=== PATIENT | female | born 1950 | race Two or more races ===

== ENCOUNTER → 2018-08-19 | Outpatient (CLI) | payer MEDICARE | END | disposition home or self-care (01) | LOC: LAB SHORT 18:18 → LAB 18:18 | DX: R19.7 Diarrhea, unspecified (principal) | CPT/HCPCS: 87493 ==

== ENCOUNTER → 2018-11-01 | Outpatient (CLI) | payer MEDICARE ==
[2018-11-05 09:08] LABS: HEPATITIS C QUANTITATION HCV Not Detected IU/mL (.)
== END | disposition home or self-care (01) ==
LOC: LAB SHORT 12:00 → LAB 12:00
PROVIDERS: Internal Medicine Nephrology
DX: K74.60 Unspecified cirrhosis of liver (principal)
CPT/HCPCS: 87522

== ENCOUNTER 2019-02-21 11:19 | Observation (INO) | payer MEDICARE ==
[~2019-02-21] VITALS: Ht 152.4 cm; Wt 88.0 kg
[2019-02-21 12:12] LABS: BASOPHILS ABSOLUTE AUTO 0.02 K/mm3 (0.00-0.23); BASOPHILS PERCENT AUTO 0 % (0-2); EOSINOPHILS ABSOLUTE AUTO 0.27 K/mm3 (0.00-0.68); EOSINOPHILS PERCENT AUTO 4 % (0-6); IMMATURE GRAN ABSOLUTE AUTO 0.04 K/mm3 (0.00-0.10); IMMATURE GRAN PERCENT AUTO 1 % (0-1); LYMPHOCYTES ABSOLUTE AUTO 0.94 K/mm3 (0.84-5.20); LYMPHOCYTES PERCENT AUTO 14 % (21-46); MONOCYTES ABSOLUTE AUTO 0.38 K/mm3 (0.16-1.47); MONOCYTES PERCENT AUTO 6 % (4-13); Mean Corpuscular HGB 29.7 pg (26.0-34.0); Mean Corpuscular HGB Conc 32.1 g/dL (31.5-36.5); Mean Corpuscular Volume 92 fL (80-100); Mean Platelet Volume 9.6 fL (9.1-12.4); NEUTROPHILS ABSOLUTE AUTO 5.24 K/mm3 (1.96-9.15); NEUTROPHILS PERCENT AUTO 76 % (41-73); Platelet Count 240 K/mm3 (150-400); RDW Standard Deviation 43.8 fL (35.1-46.3); Red Blood Cell Count 3.03 M/mm3 (3.80-5.20); White Blood Cell Count 6.89 K/mm3 (4.00-11.30)
[2019-02-21 12:35] LABS: Albumin, Blood 2.5 g/dL (3.4-5.0); Albumin/Globulin Ratio 0.7 (0.8-1.8); Bilirubin, Total 0.3 mg/dL (0.1-1.0); Bun/Creatinine Ratio 15.4 (12.0-20.0); Calcium, Blood 7.9 mg/dL (8.5-10.1); Creatinine, Blood 2.92 mg/dL (0.40-1.00); Globulin, Blood 3.8 g/dL (2.2-4.0); Potassium, Blood 4.1 mmol/L (3.5-5.5); Total Protein, Blood 6.3 g/dL (6.4-8.2)
[2019-02-21] MEDS ORDERED: TEMA15 PO (14:56)
[2019-02-21] MEDS ORDERED: PANTOPRAZOLE SO40 M2 PO (14:57)
[2019-02-21] MEDS ORDERED: Megestrol400 MG/10 PO (14:57)
[2019-02-21] MEDS ORDERED: METO100ER PO (14:57)
[2019-02-21] MEDS ORDERED: HUMULIN N100 UNIT/2 SC (14:57)
[2019-02-21] MEDS ORDERED: ATORVASTATIN CA40 MG PO (14:58)
[2019-02-21] MEDS ORDERED: ROPINIROLE HCL0.5 MG PO (14:58)
[2019-02-21] MEDS ORDERED: TORSE20 PO (14:58)
[2019-02-21] MEDS ORDERED: LOSARTAN POTAS100 MG PO (14:59)
[2019-02-21] MEDS ORDERED: NOVOLOG FL100 UNIT/1 SC (15:07)
[2019-02-21] MEDS ORDERED: ALUM320SU PO (15:08)
[2019-02-21] MEDS ORDERED: Lomotil Tablet1 EACH PO (15:09)
[2019-02-21 15:28] LABS: CPK Creatine Kinase 105 U/L (26-193)
[2019-02-21 15:31] LABS: Creatine Kinase MB <1.0 ng/mL (0.0-3.6); Creatine Kinase MB Index Unable to Calculate (0.0-4.0)
[2019-02-21 18:06] LABS: Percent Saturation 21.2 % (15.0-50.0)
[2019-02-21 18:12] LABS: Free Thyroxine 0.9 ng/dL (0.70-1.60)
[2019-02-21 18:25] LABS: Phosphorus, Blood 3.6 mg/dL (2.5-4.9); Potassium, Blood 4.3 mmol/L (3.5-5.5)
[2019-02-21 18:30] LABS: Thyroid Stimulating Hormone 1.21 uIU/mL (0.360-4.800)
[2019-02-21] MEDS ORDERED: ALPR.5 PO (18:35)
[2019-02-21] MEDS ORDERED: IRBE150 PO (18:38)
[2019-02-21] MEDS ORDERED: LIDOCAINE-PRIL1 EACH TOP (18:41)
[2019-02-21] MEDS ORDERED: METO25 PO (18:44)
[2019-02-21] MEDS ORDERED: NICO21TP TOP (18:46)
--- NOTE | 2019-02-21 19:14 | NUR ---
ADMIT ED ADMIT. SETTLED INTO ROOM. DENIES PAIN, NAUSEA, AND SHORTNESS OF BREATH. PATIENT CONTINUES TO HAVE TREMORS AND JERKING MOTIONS WITH HER ARMS. PATIENT ONE ASSIST TO BSC. CALL LIGHT IN REACH.
[2019-02-22 02:26] LABS: Hematocrit 24.7 % (33.0-51.0); Hemoglobin 8.1 g/dL (11.5-16.0); Mean Corpuscular HGB 30.1 pg (26.0-34.0); Mean Corpuscular HGB Conc 32.8 g/dL (31.5-36.5); Mean Corpuscular Volume 92 fL (80-100); Mean Platelet Volume 9.7 fL (9.1-12.4); Platelet Count 217 K/mm3 (150-400); RDW Standard Deviation 43.1 fL (35.1-46.3); Red Blood Cell Count 2.69 M/mm3 (3.80-5.20); White Blood Cell Count 7.69 K/mm3 (4.00-11.30)
[2019-02-22 02:33] LABS: Glucose, Blood 532 mg/dL (70-99)
[2019-02-22 02:37] LABS: Albumin, Blood 2.2 g/dL (3.4-5.0); Albumin/Globulin Ratio 0.6 (0.8-1.8); Bilirubin, Total 0.2 mg/dL (0.1-1.0); Bun/Creatinine Ratio 16.1 (12.0-20.0); Creatinine, Blood 3.22 mg/dL (0.40-1.00); Globulin, Blood 3.7 g/dL (2.2-4.0); Potassium, Blood 4.4 mmol/L (3.5-5.5); Total Protein, Blood 5.9 g/dL (6.4-8.2)
[2019-02-22 03:02] LABS: U Amphetamine Screen Not Detected; U Barbituate Screen Not Detected; U Benzodiazapine Screen DETECTED; U Buprenorphine Screen Not Detected; U Cannabinoids Screen Not Detected; U Cocaine Screen Not Detected; U Methadone Screen Not Detected; U Methamphetamine Screen Not Detected; U Opiates Screen Not Detected; U Oxycodone Screen Not Detected; U Phencyclidine Screen Not Detected; U Propoxyphene Screen Not Detected
--- NOTE | 2019-02-22 05:12 | NUR ---
SHIFT SUMMARY PT'S LS WERE COARSE AND BT +. SUHA HAD ELEVATED BS THIS EVENING. MD WAS CALLED FOR INSTRUCTIONS REGARDING GIVING INSULIN D/T THE ELEVATED BS. SHE WAS GIVEN INSULIN PER MD. SUHA ALSO NEEDED THE MD TO AUTHORIZE HER ROPINROLE MED IT WASN'T IN HER EMAR YET. ALSO GOT AN ORDER FOR THAT AND IT HAS BEEN GIVEN WITHOUT ANY ASE. SHE STATES IT HASN'T STARTED WORKING YET. WILL CON'T TO MONITOR HER.
--- NOTE | 2019-02-22 09:11 | NUR ---
SPOKE WITH JENISE IN DIALYSIS. SARI ORDERED PRBC'S TO BE GIVEN DURING DIALYSIS TODAY.
--- NOTE | 2019-02-22 15:34 | NUR ---
DIALYSIS IN PROGRESS AT BEDSIDE.
--- NOTE | 2019-02-22 18:06 | NUR ---
SHIFT SUMMARY OX3. 1 PERSON ASSIST TO BSC. DIALYSIS COMPLETED TODAY AND 1 UNIT PRBC'S GIVEN. DENIES ANY PAIN. EATING AND DRINKING WELL. FAMILY TO VISIT THROUGHOUT DAY. MRI COMPLETED. FISTULA TO LEFT ARM. PLEASANT, CALM.
--- NOTE | 2019-02-23 03:52 | NUR ---
SHIFT SUMMARY PATIENT'S LS COARSE AND BT+, SHE WAS UP TO BSC WITH 1 PERSON ASSIST. BS'S HAVE BEEN WNL TONIGHT. SHE HAD DIALYSIS YESTERDAY. SHE IS IN BETTER SPIRITS TONIGHT COMPARED TO LAST NIGHT. SHE HAS APPEARED TO BE SLEEPING ON AND OFF TONIGHT. HER DTR IN TOWN AND WANTING TO TALK WITH MD TOMORROW ABOUT THE MRI DONE.
[2019-02-23 04:30] LABS: Hematocrit 26.9 % (33.0-51.0); Hemoglobin 9.2 g/dL (11.5-16.0)
[2019-02-23 04:43] LABS: Albumin, Blood 2.1 g/dL (3.4-5.0); Anion Gap 8 mmol/L (6-16); Blood Urea Nitrogen 37 mg/dL (8-24); Bun/Creatinine Ratio 14.2 (12.0-20.0); CO2, Blood 27 mmol/L (21-32); Calcium, Blood 7.9 mg/dL (8.5-10.1); Chloride, Blood 106 mmol/L (98-108); Creatinine, Blood 2.61 mg/dL (0.40-1.00); Glomerular Filtration Rate 19 (60-); Glucose, Blood 243 mg/dL (70-99); Magnesium, Blood 1.8 mg/dL (1.6-2.4); Phosphorus, Blood 3.8 mg/dL (2.5-4.9); Potassium, Blood 3.5 mmol/L (3.5-5.5); Sodium, Blood 141 mmol/L (136-145)
[2019-02-23] MEDS ORDERED: ASPI81CH PO (12:40)
[2019-02-23] MEDS ORDERED: CALC.25 PO (12:41)
[2019-02-23] MEDS ORDERED: Super B With V1 EACH PO (12:41)
[2019-02-23] MEDS ORDERED: TUMS500 MG PO (12:42)
[2019-02-23] MEDS ORDERED: THERA-D2000 UNIT PO (12:43)
[2019-02-23] MEDS ORDERED: Abilify2 MG PO (12:43)
[2019-02-23] MEDS ORDERED: HUMALOG KW200 UNIT/1 SC (12:43)
[2019-02-23] MEDS ORDERED: TIOT18 INH (12:44)
--- NOTE | 2019-02-23 17:36 | NUR ---
DISCHARGE NOTE PT DC'D VIA W/C POV WITH DAUGHTER. PT ATE HUMMUS TRAY AFTER RECEIVING EVENING INSULIN DOSING. IV DISCONTINUED INTACT. PT AND FAMILY VERBALIZED UNDERSTANDING OF DISCHARGE INSTRUCTIONS AND IMPORTANCE OF ATTENDING FOLLOW UP APPTS AND TAKING MEDICATIONS PRESCRIBED. ALL BELONGINGS SENT WITH PATIENT AT TIME OF DISCHARGE.
== END 2019-02-23 17:46 | disposition home or self-care (01) ==
LOC: ER 11:19 → MEDS 11:20 → ENPENDDIS 02-23 10:30 → MEDS 02-23 17:46
PROVIDERS: Emergency Medicine; Internal Medicine; Internal Medicine Nephrology; ADMIT Internal Medicine
DX: G25.89 Other specified extrapyramidal and movement disorders (principal); I12.0 Hypertensive chronic kidney disease with stage 5 chronic kidney disease or end stage renal disease; E11.22 Type 2 diabetes mellitus with diabetic chronic kidney disease; N18.6 End stage renal disease; D63.1 Anemia in chronic kidney disease; N25.81 Secondary hyperparathyroidism of renal origin; E11.65 Type 2 diabetes mellitus with hyperglycemia; B19.20 Unspecified viral hepatitis C without hepatic coma; E78.5 Hyperlipidemia, unspecified; E83.51 Hypocalcemia; G25.81 Restless legs syndrome; K21.9 Gastro-esophageal reflux disease without esophagitis; F17.210 Nicotine dependence, cigarettes, uncomplicated; E66.9 Obesity, unspecified; Z68.37 Body mass index [BMI] 37.0-37.9, adult; Z99.2 Dependence on renal dialysis; Z79.4 Long term (current) use of insulin; Z79.899 Other long term (current) drug therapy
CPT/HCPCS: 36415; 36430; 70450; 70551; 71045; 80053; 80069; 82010; 82306; 82330; 82525; 82550; 82553; 82607; 82728; 82746; 82947; 83540; 83550; 83735; 83970; 84100; 84132; 84439; 84443; 85014; 85018; 85025; 85027; 86850; 86900; 86901; 86923; 93005; 93010; 96372; 97116; 97161; 99285-25; G0257; G0378; J0610; J0881; J1644; J1815; P9016

== ENCOUNTER 2020-05-16 07:42 | Observation (INO) | payer MEDICARE ==
[~2020-05-16] VITALS: Ht 152.4 cm; Wt 79.4 kg
[~2020-05-16 07:42] MED LIST: ALPR.5 PO; ALUM320SU PO; ASPI81CH PO; ATORVASTATIN CA40 MG PO; Abilify2 MG PO; BENZ100A PO; BETA.05TO TOP; CALC.25 PO; CLON.1 PO; Clonidine HCl0.3 MG PO; Geri-Hydrolac140 GM TOP; HUMALOG KW200 UNIT/1 SC; HUMULIN N100 UNIT/2 SC; HYDMOR2 PO; HYDR10 PO; HYDRA50 PO; IRBE150 PO; LIDOCAINE-PRIL1 EACH TOP; LOSARTAN POTAS100 MG PO; Lomotil Tablet1 EACH PO; METO100ER PO; METO25 PO; Megestrol400 MG/10 PO; NICO21TP TOP; NOVOLOG FL100 UNIT/1 SC; OXYC5 PO; PANTOPRAZOLE SO40 M2 PO; Pedi-Dri 100,0060 GM TOP; ROPINIROLE HCL0.5 MG PO; Ropinirole HCl0.5 MG PO; SINEMET 25-1001 EACH PO; SPIRIVA RESPIMAT4 G1 INH; Super B With V1 EACH PO; TEMA15 PO; THERA-D2000 UNIT PO; TIOT18 INH; TORSE20 PO; TRIA15CR3 TOP; TUMS500 MG PO
[2020-05-16 09:32] LABS: Calcium, Blood 8.7 mg/dL (8.5-10.1); Potassium, Blood 4.6 mmol/L (3.5-5.5)
[2020-05-16 09:34] LABS: Bun/Creatinine Ratio 12.4 (12.0-20.0); Creatinine, Blood 5.8 mg/dL (0.40-1.00)
[2020-05-16 10:47] LABS: Influenza A, PCR NEGATIVE (NEGATIVE); Influenza B, PCR NEGATIVE (NEGATIVE); Resp Syncytial Virus, PCR NEGATIVE (NEGATIVE); SARS-Cov-2 (COVID-19) PCR, MMC NEGATIVE (NEGATIVE)
== END 2020-05-16 15:47 | disposition home or self-care (01) ==
LOC: ER 07:42 → MEDS 07:43
PROVIDERS: Emergency Medicine; ADMIT Internal Medicine
DX: I12.0 Hypertensive chronic kidney disease with stage 5 chronic kidney disease or end stage renal disease (principal); N18.6 End stage renal disease; D64.9 Anemia, unspecified; E88.09 Other disorders of plasma-protein metabolism, not elsewhere classified; E78.5 Hyperlipidemia, unspecified; J44.9 Chronic obstructive pulmonary disease, unspecified; K21.9 Gastro-esophageal reflux disease without esophagitis; F41.9 Anxiety disorder, unspecified; G89.29 Other chronic pain; E11.22 Type 2 diabetes mellitus with diabetic chronic kidney disease; Z99.2 Dependence on renal dialysis; Z88.8 Allergy status to other drugs, medicaments and biological substances; Z79.4 Long term (current) use of insulin; Z20.822 Contact with and (suspected) exposure to COVID-19
CPT/HCPCS: 0241U; 36415; 80048; 99284-25; G0257

== ENCOUNTER 2020-05-26 10:09 | Emergency (ER) | payer MEDICARE ==
[~2020-05-26] VITALS: Ht 152.4 cm; Wt 78.9 kg
[2020-05-26 10:34] LABS: BASOPHILS ABSOLUTE AUTO 0.03 K/mm3 (0.00-0.23); BASOPHILS PERCENT AUTO 1 % (0-2); EOSINOPHILS ABSOLUTE AUTO 0.12 K/mm3 (0.00-0.68); EOSINOPHILS PERCENT AUTO 2 % (0-6); Hematocrit 33.1 % (33.0-51.0); Hemoglobin 11.3 g/dL (11.5-16.0); IMMATURE GRAN ABSOLUTE AUTO 0.03 K/mm3 (0.00-0.10); IMMATURE GRAN PERCENT AUTO 1 % (0-1); LYMPHOCYTES PERCENT AUTO 15 % (21-46); MONOCYTES ABSOLUTE AUTO 0.57 K/mm3 (0.16-1.47); MONOCYTES PERCENT AUTO 9 % (4-13); Mean Corpuscular HGB 31.1 pg (26.0-34.0); Mean Corpuscular HGB Conc 34.1 g/dL (31.5-36.5); Mean Corpuscular Volume 91 fL (80-100); Mean Platelet Volume 9.3 fL (9.1-12.4); NEUTROPHILS PERCENT AUTO 73 % (41-73); Platelet Count 202 K/mm3 (150-400); RDW Coefficient Variation 12.4 % (11.7-14.2); RDW Standard Deviation 41.5 fL (35.1-46.3); Red Blood Cell Count 3.63 M/mm3 (3.80-5.20); White Blood Cell Count 6.55 K/mm3 (4.00-11.30)
[2020-05-26 10:50] LABS: Albumin/Globulin Ratio 0.8 (0.8-1.8); Bilirubin, Total 0.4 mg/dL (0.1-1.0); Bun/Creatinine Ratio 8.1 (12.0-20.0); Calcium, Blood 8.8 mg/dL (8.5-10.1); Creatinine, Blood 3.96 mg/dL (0.40-1.00); Globulin, Blood 3.7 g/dL (2.2-4.0); Potassium, Blood 4.2 mmol/L (3.5-5.5); Total Protein, Blood 6.7 g/dL (6.4-8.2)
== END 2020-05-26 12:29 | disposition home or self-care (01) ==
LOC: ER 10:09
PROVIDERS: Emergency Medicine
DX: E11.649 Type 2 diabetes mellitus with hypoglycemia without coma (principal); E11.22 Type 2 diabetes mellitus with diabetic chronic kidney disease; I12.0 Hypertensive chronic kidney disease with stage 5 chronic kidney disease or end stage renal disease; N18.6 End stage renal disease; Z99.2 Dependence on renal dialysis; Z87.891 Personal history of nicotine dependence; K21.9 Gastro-esophageal reflux disease without esophagitis; E78.5 Hyperlipidemia, unspecified; J44.9 Chronic obstructive pulmonary disease, unspecified
CPT/HCPCS: 36415; 70450; 80053; 82947; 85025; 93005; 93010; 99284-25

== ENCOUNTER 2020-06-10 18:34 | Emergency (ER) | payer MEDICARE ==
[~2020-06-10] VITALS: Ht 152.4 cm; Wt 87.1 kg
[2020-06-10 23:50] LABS: Source, Urine Clean Catch
[2020-06-10 23:53] LABS: Bilirubin, Urine Neg (Neg); Blood, Urine Neg (Neg); Glucose Qualitative, Urine 1+ (Neg); Ketones, Urine Neg (Neg); Leukocyte Esterase, Urine Neg (Neg); Nitrite, Urine Neg (Neg); Protein, Urine 3+ (Neg); Specific Gravity, Urine 1.015 (1.003-1.022); Urobilinogen, Urine NORM (Normal)
[2020-06-11 00:11] LABS: Appearance, Urine Clear (Clear); Color, Urine Yellow (P-Yellow)
[2020-06-11 00:12] LABS: Bacteria Not Seen /hpf; Red Blood Cells, Urine Not Seen /hpf (0-2); Squamous Epithelial Cells Few /hpf (Few); White Blood Cells, Urine Rare /hpf (0-5)
== END 2020-06-11 00:30 | disposition home or self-care (01) ==
LOC: ER 18:34
PROVIDERS: Physician Assistant
DX: R10.9 Unspecified abdominal pain (principal); N18.6 End stage renal disease; F17.200 Nicotine dependence, unspecified, uncomplicated; Z88.6 Allergy status to analgesic agent; Z88.5 Allergy status to narcotic agent; Z79.4 Long term (current) use of insulin; Z99.2 Dependence on renal dialysis; Z79.899 Other long term (current) drug therapy
CPT/HCPCS: 76705; 81001; 82947; 99284-25; A9270

== ENCOUNTER 2020-07-01 22:40 | Emergency (ER) | payer MEDICARE ==
[~2020-07-01] VITALS: Ht 152.4 cm; Wt 79.4 kg
[2020-07-02 02:43] LABS: BASOPHILS ABSOLUTE AUTO 0.05 K/mm3 (0.00-0.23); BASOPHILS PERCENT AUTO 1 % (0-2); EOSINOPHILS ABSOLUTE AUTO 0.28 K/mm3 (0.00-0.68); EOSINOPHILS PERCENT AUTO 3 % (0-6); Hematocrit 31.2 % (33.0-51.0); Hemoglobin 10.9 g/dL (11.5-16.0); IMMATURE GRAN ABSOLUTE AUTO 0.06 K/mm3 (0.00-0.10); IMMATURE GRAN PERCENT AUTO 1 % (0-1); LYMPHOCYTES ABSOLUTE AUTO 2.16 K/mm3 (0.84-5.20); LYMPHOCYTES PERCENT AUTO 25 % (21-46); MONOCYTES ABSOLUTE AUTO 0.61 K/mm3 (0.16-1.47); MONOCYTES PERCENT AUTO 7 % (4-13); Mean Corpuscular HGB 30.8 pg (26.0-34.0); Mean Corpuscular HGB Conc 34.9 g/dL (31.5-36.5); Mean Corpuscular Volume 88 fL (80-100); Mean Platelet Volume 9.3 fL (9.1-12.4); NEUTROPHILS PERCENT AUTO 63 % (41-73); Platelet Count 205 K/mm3 (150-400); RDW Coefficient Variation 12.6 % (11.7-14.2); Red Blood Cell Count 3.54 M/mm3 (3.80-5.20); White Blood Cell Count 8.56 K/mm3 (4.00-11.30)
[2020-07-02 03:03] LABS: Alanine Aminotransfer (ALT/SGP 22 U/L (12-78); Albumin/Globulin Ratio 0.8 (0.8-1.8); Alk Phos 87 U/L (50-136); Anion Gap 5 mmol/L (6-16); Aspartate Aminotrans (AST/SGOT 43 U/L (12-37); Bilirubin, Total 0.3 mg/dL (0.1-1.0); Blood Urea Nitrogen 19 mg/dL (8-24); Bun/Creatinine Ratio 6.1 (12.0-20.0); CO2, Blood 38 mmol/L (21-32); Calcium, Blood 8.9 mg/dL (8.5-10.1); Chloride, Blood 92 mmol/L (98-108); Creatinine, Blood 3.09 mg/dL (0.40-1.00); Globulin, Blood 3.7 g/dL (2.2-4.0); Glomerular Filtration Rate 16 (60-); Glucose, Blood 192 mg/dL (70-99); Magnesium, Blood 2.4 mg/dL (1.6-2.4); Potassium, Blood 3.5 mmol/L (3.5-5.5); Sodium, Blood 135 mmol/L (136-145); Total Protein, Blood 6.7 g/dL (6.4-8.2); Troponin I <0.015 ng/mL (0.000-0.040)
[2020-07-02] MEDS ORDERED: Pepcid20 MG PO (04:09)
[2020-07-02] MEDS ORDERED: AMOCLA875 PO (06:04)
== END 2020-07-02 06:15 | disposition home or self-care (01) ==
LOC: ER 22:40
PROVIDERS: Emergency Medicine
DX: K21.9 Gastro-esophageal reflux disease without esophagitis (principal); R51.9 Headache, unspecified; Z79.4 Long term (current) use of insulin; Z79.899 Other long term (current) drug therapy
CPT/HCPCS: 36415; 71045; 80053; 83690; 83735; 84484; 85025; 93005; 93010; 96374; 99284-25; A9270

== ENCOUNTER 2020-07-13 18:23 | Emergency (ER) | payer MEDICARE ==
[~2020-07-13] VITALS: Ht 152.4 cm; Wt 77.6 kg
[~2020-07-13 18:23] MED LIST changes: +AMOCLA875 PO; +Pepcid20 MG PO
== END 2020-07-13 23:23 | disposition home or self-care (01) ==
LOC: ER 18:23
DX: I12.0 Hypertensive chronic kidney disease with stage 5 chronic kidney disease or end stage renal disease (principal); N18.6 End stage renal disease; J44.9 Chronic obstructive pulmonary disease, unspecified; K21.9 Gastro-esophageal reflux disease without esophagitis; E78.5 Hyperlipidemia, unspecified; F17.210 Nicotine dependence, cigarettes, uncomplicated; Z99.2 Dependence on renal dialysis
CPT/HCPCS: 70450; 99284-25; A9270; J1100

== ENCOUNTER 2020-07-14 11:12 | Emergency (ER) | payer MEDICARE ==
[~2020-07-14] VITALS: Ht 152.4 cm; Wt 77.0 kg
[2020-07-14 13:15] LABS: Calcium, Ionized (POC) 1.09 mmol/L (1.10-1.46); Chloride (POC) 92 mmol/L (98-108); Creatinine (POC) 4.5 mg/dL (0.6-1.0); Glucose (ISTAT POC) 369 mg/dL (70-99); Hemoglobin (POC) 8.8 g/dL (12.0-16.0); Potassium (POC) 3.5 mmol/L (3.5-5.5); Sodium (POC) 135 mmol/L (135-148); Total CO2 (POC) 31 mmol/L (21-32)
== END 2020-07-14 14:40 | disposition home or self-care (01) ==
LOC: ER 11:12
PROVIDERS: Emergency Medicine
DX: E11.65 Type 2 diabetes mellitus with hyperglycemia (principal); F95.2 Tourette's disorder; K21.9 Gastro-esophageal reflux disease without esophagitis; I12.0 Hypertensive chronic kidney disease with stage 5 chronic kidney disease or end stage renal disease; E78.5 Hyperlipidemia, unspecified; F17.200 Nicotine dependence, unspecified, uncomplicated; Z88.6 Allergy status to analgesic agent; Z88.8 Allergy status to other drugs, medicaments and biological substances; Z79.899 Other long term (current) drug therapy; E11.22 Type 2 diabetes mellitus with diabetic chronic kidney disease; N18.6 End stage renal disease
CPT/HCPCS: 36415; 80047; 82947; 85014; 99283; J1815

== ENCOUNTER 2020-11-11 21:09 | Emergency (ER) | payer MEDICARE ==
[~2020-11-11] VITALS: Ht 152.4 cm; Wt 81.7 kg
== END 2020-11-11 23:15 | disposition home or self-care (01) ==
LOC: ER 21:09
DX: R00.2 Palpitations (principal); I12.0 Hypertensive chronic kidney disease with stage 5 chronic kidney disease or end stage renal disease; E11.22 Type 2 diabetes mellitus with diabetic chronic kidney disease; N18.6 End stage renal disease; E55.9 Vitamin D deficiency, unspecified; J44.9 Chronic obstructive pulmonary disease, unspecified; K21.9 Gastro-esophageal reflux disease without esophagitis; E78.5 Hyperlipidemia, unspecified; F17.200 Nicotine dependence, unspecified, uncomplicated; Z88.6 Allergy status to analgesic agent; Z79.899 Other long term (current) drug therapy; Z99.81 Dependence on supplemental oxygen
CPT/HCPCS: 93005; 93010; 99285-25

== ENCOUNTER 2020-12-14 16:57 | Emergency (ER) | payer MEDICARE ==
[~2020-12-14] VITALS: Ht 152.4 cm; Wt 82.5 kg
[2020-12-14 17:46] LABS: BASOPHILS ABSOLUTE AUTO 0.04 K/mm3 (0.00-0.23); BASOPHILS PERCENT AUTO 1 % (0-2); EOSINOPHILS ABSOLUTE AUTO 0.09 K/mm3 (0.00-0.68); EOSINOPHILS PERCENT AUTO 1 % (0-6); Hematocrit 33.1 % (33.0-51.0); Hemoglobin 11.5 g/dL (11.5-16.0); IMMATURE GRAN ABSOLUTE AUTO 0.07 K/mm3 (0.00-0.10); IMMATURE GRAN PERCENT AUTO 1 % (0-1); LYMPHOCYTES ABSOLUTE AUTO 1.26 K/mm3 (0.84-5.20); LYMPHOCYTES PERCENT AUTO 19 % (21-46); MONOCYTES ABSOLUTE AUTO 0.45 K/mm3 (0.16-1.47); MONOCYTES PERCENT AUTO 7 % (4-13); Mean Corpuscular HGB 32.3 pg (26.0-34.0); Mean Corpuscular HGB Conc 34.7 g/dL (31.5-36.5); Mean Corpuscular Volume 93 fL (80-100); Mean Platelet Volume 9.3 fL (9.1-12.4); NEUTROPHILS ABSOLUTE AUTO 4.84 K/mm3 (1.96-9.15); NEUTROPHILS PERCENT AUTO 72 % (41-73); NRBC ABSOLUTE 0.02 K/mm3 (0.00-0.02); NRBC Auto 0.3 /100 WBC (0.0-0.2); Platelet Count 208 K/mm3 (150-400); RDW Coefficient Variation 13.5 % (11.7-14.2); RDW Standard Deviation 45.6 fL (35.1-46.3); Red Blood Cell Count 3.56 M/mm3 (3.80-5.20); White Blood Cell Count 6.75 K/mm3 (4.00-11.30)
[2020-12-14 18:04] LABS: Albumin, Blood 3.5 g/dL (3.4-5.0); Albumin/Globulin Ratio 0.8 (0.8-1.8); Bilirubin, Total 0.3 mg/dL (0.1-1.0); Bun/Creatinine Ratio 6.9 (12.0-20.0); Calcium, Blood 8.9 mg/dL (8.5-10.1); Creatinine, Blood 3.04 mg/dL (0.40-1.00); Globulin, Blood 4.4 g/dL (2.2-4.0); Potassium, Blood 2.8 mmol/L (3.5-5.5); Total Protein, Blood 7.9 g/dL (6.4-8.2)
== END 2020-12-15 01:41 | disposition home or self-care (01) ==
LOC: ER 16:57
PROVIDERS: Physician Assistant
DX: R51.9 Headache, unspecified (principal); E87.6 Hypokalemia; I12.0 Hypertensive chronic kidney disease with stage 5 chronic kidney disease or end stage renal disease; E11.22 Type 2 diabetes mellitus with diabetic chronic kidney disease; N18.6 End stage renal disease; J44.9 Chronic obstructive pulmonary disease, unspecified; K21.9 Gastro-esophageal reflux disease without esophagitis; E78.5 Hyperlipidemia, unspecified; F17.200 Nicotine dependence, unspecified, uncomplicated; Z88.6 Allergy status to analgesic agent; Z88.8 Allergy status to other drugs, medicaments and biological substances; Z79.899 Other long term (current) drug therapy; Z79.4 Long term (current) use of insulin; Z99.2 Dependence on renal dialysis
CPT/HCPCS: 36415; 70450; 80053; 85025; 93005; 93010; 96374; 96375; 99284-25; A9270; J1100; J2765; J3010

== ENCOUNTER 2021-03-16 14:32 | Emergency (ER) | payer MEDICARE ==
[~2021-03-16] VITALS: Ht 152.4 cm; Wt 82.5 kg
[2021-03-16 15:08] LABS: BASOPHILS ABSOLUTE AUTO 0.03 K/mm3 (0.00-0.23); BASOPHILS PERCENT AUTO 1 % (0-2); EOSINOPHILS ABSOLUTE AUTO 0.15 K/mm3 (0.00-0.68); EOSINOPHILS PERCENT AUTO 3 % (0-6); Hematocrit 22.5 % (33.0-51.0); Hemoglobin 7.2 g/dL (11.5-16.0); IMMATURE GRAN ABSOLUTE AUTO 0.02 K/mm3 (0.00-0.10); IMMATURE GRAN PERCENT AUTO 0 % (0-1); LYMPHOCYTES ABSOLUTE AUTO 1.47 K/mm3 (0.84-5.20); LYMPHOCYTES PERCENT AUTO 24 % (21-46); MONOCYTES ABSOLUTE AUTO 0.49 K/mm3 (0.16-1.47); MONOCYTES PERCENT AUTO 8 % (4-13); Mean Corpuscular HGB 31.9 pg (26.0-34.0); Mean Corpuscular Volume 100 fL (80-100); Mean Platelet Volume 9.4 fL (9.1-12.4); NEUTROPHILS ABSOLUTE AUTO 3.93 K/mm3 (1.96-9.15); NEUTROPHILS PERCENT AUTO 65 % (41-73); Platelet Count 171 K/mm3 (150-400); RDW Coefficient Variation 15.8 % (11.7-14.2); Red Blood Cell Count 2.26 M/mm3 (3.80-5.20); White Blood Cell Count 6.09 K/mm3 (4.00-11.30)
[2021-03-16 15:31] LABS: Magnesium, Blood 2.2 mg/dL (1.6-2.4)
[2021-03-16 15:49] LABS: Albumin, Blood 2.7 g/dL (3.4-5.0); Albumin/Globulin Ratio 0.8 (0.8-1.8); Bilirubin, Total 0.3 mg/dL (0.1-1.0); Bun/Creatinine Ratio 6.8 (12.0-20.0); Calcium, Blood 8.4 mg/dL (8.5-10.1); Creatinine, Blood 4.25 mg/dL (0.40-1.00); Globulin, Blood 3.6 g/dL (2.2-4.0); Potassium, Blood 3.5 mmol/L (3.5-5.5); Total Protein, Blood 6.3 g/dL (6.4-8.2)
[2021-03-17] MEDS ORDERED: METO25 (08:00)
[2021-03-17] MEDS ORDERED: IBUP200 PO (08:17)
== END 2021-03-16 17:56 | disposition home or self-care (01) ==
LOC: ER 14:32
PROVIDERS: Physician Assistant
DX: I12.0 Hypertensive chronic kidney disease with stage 5 chronic kidney disease or end stage renal disease (principal); E11.22 Type 2 diabetes mellitus with diabetic chronic kidney disease; N18.6 End stage renal disease; D63.1 Anemia in chronic kidney disease; R53.1 Weakness; J44.9 Chronic obstructive pulmonary disease, unspecified; K21.9 Gastro-esophageal reflux disease without esophagitis; E78.5 Hyperlipidemia, unspecified; Z99.2 Dependence on renal dialysis; F17.200 Nicotine dependence, unspecified, uncomplicated; Z88.6 Allergy status to analgesic agent; Z88.8 Allergy status to other drugs, medicaments and biological substances; Z79.899 Other long term (current) drug therapy
CPT/HCPCS: 36415; 70450; 80053; 83735; 85025; 86850; 86900; 86901; 93005; 93010; 99285-25

== ENCOUNTER 2021-03-17 07:39 | Day surgery (SDC) | payer MEDICARE ==
[2021-03-17] MEDS ORDERED: METO25 (08:00)
[2021-03-17] MEDS ORDERED: IBUP200 PO (08:17)
--- NOTE | 2021-03-17 11:32 | NUR ---
PT ONE PERSON ASSISTED TO COMMODE AND BACK TO CHAIR WITHOUT INCIDENT
== END 2021-03-17 12:20 | disposition home or self-care (01) ==
LOC: ATC 07:39
DX: D64.9 Anemia, unspecified (principal); I12.0 Hypertensive chronic kidney disease with stage 5 chronic kidney disease or end stage renal disease; E11.22 Type 2 diabetes mellitus with diabetic chronic kidney disease; N18.6 End stage renal disease; J44.9 Chronic obstructive pulmonary disease, unspecified; G25.81 Restless legs syndrome; K21.9 Gastro-esophageal reflux disease without esophagitis; E78.5 Hyperlipidemia, unspecified; Z99.2 Dependence on renal dialysis; Z79.4 Long term (current) use of insulin; Z88.6 Allergy status to analgesic agent; Z88.8 Allergy status to other drugs, medicaments and biological substances
CPT/HCPCS: 36430; 86850; 86900; 86901; 86923; J7050; P9016

== ENCOUNTER 2021-05-06 17:49 | Inpatient (IN) | payer MEDICARE ==
[~2021-05-06] VITALS: Ht 152.4 cm; Wt 82.5 kg
[~2021-05-06 17:49] MED LIST changes: +IBUP200 PO; +LOSA50 PO; -LOSARTAN POTAS100 MG PO
[2021-05-06 18:50] LABS: BASOPHILS ABSOLUTE AUTO 0.05 K/mm3 (0.00-0.23); BASOPHILS PERCENT AUTO 1 % (0-2); EOSINOPHILS ABSOLUTE AUTO 0.14 K/mm3 (0.00-0.68); EOSINOPHILS PERCENT AUTO 2 % (0-6); Hematocrit 30.7 % (33.0-51.0); Hemoglobin 9.6 g/dL (11.5-16.0); IMMATURE GRAN ABSOLUTE AUTO 0.02 K/mm3 (0.00-0.10); IMMATURE GRAN PERCENT AUTO 0 % (0-1); LYMPHOCYTES ABSOLUTE AUTO 0.81 K/mm3 (0.84-5.20); LYMPHOCYTES PERCENT AUTO 12 % (21-46); MONOCYTES PERCENT AUTO 9 % (4-13); Mean Corpuscular HGB 29.4 pg (26.0-34.0); Mean Corpuscular HGB Conc 31.3 g/dL (31.5-36.5); Mean Corpuscular Volume 94 fL (80-100); Mean Platelet Volume 9.8 fL (9.1-12.4); NEUTROPHILS ABSOLUTE AUTO 5.44 K/mm3 (1.96-9.15); NEUTROPHILS PERCENT AUTO 77 % (41-73); Platelet Count 158 K/mm3 (150-400); RDW Coefficient Variation 14.9 % (11.7-14.2); RDW Standard Deviation 51.5 fL (35.1-46.3); Red Blood Cell Count 3.27 M/mm3 (3.80-5.20); White Blood Cell Count 7.06 K/mm3 (4.00-11.30)
[2021-05-06 19:21] LABS: Alanine Aminotransfer (ALT/SGP <6 U/L (12-78); Albumin, Blood 2.9 g/dL (3.4-5.0); Albumin/Globulin Ratio 0.8 (0.8-1.8); Alk Phos 86 U/L (50-136); Anion Gap 6 mmol/L (6-16); Aspartate Aminotrans (AST/SGOT 15 U/L (12-37); Bilirubin, Total 0.5 mg/dL (0.1-1.0); Blood Urea Nitrogen 29 mg/dL (8-24); Bun/Creatinine Ratio 7.1 (12.0-20.0); CO2, Blood 33 mmol/L (21-32); Calcium, Blood 8.6 mg/dL (8.5-10.1); Chloride, Blood 97 mmol/L (98-108); Creatinine, Blood 4.09 mg/dL (0.40-1.00); Globulin, Blood 3.7 g/dL (2.2-4.0); Glomerular Filtration Rate 11 (60-); Glucose, Blood 196 mg/dL (70-99); Potassium, Blood 3.6 mmol/L (3.5-5.5); Sodium, Blood 136 mmol/L (136-145); Total Protein, Blood 6.6 g/dL (6.4-8.2)
[2021-05-06 22:01] LABS: Influenza A, PCR NEGATIVE (NEGATIVE); Influenza B, PCR NEGATIVE (NEGATIVE); Resp Syncytial Virus, PCR NEGATIVE (NEGATIVE); SARS-Cov-2 (COVID-19) PCR, MMC NEGATIVE (NEGATIVE)
[2021-05-07] MEDS ORDERED: ARNUITY ELLIP100 MCG INH (00:12)
[2021-05-07] MEDS ORDERED: COMBIVENT RESPIM4 G1 INH (00:13)
[2021-05-07] MEDS ORDERED: MERIBIN5 MG PO (02:19)
[2021-05-07] MEDS ORDERED: ACET500 PO (02:53)
[2021-05-07] MEDS ORDERED: SERT50 PO (02:53)
[2021-05-07] MEDS ORDERED: NEPRO (02:58)
[2021-05-07] MEDS ORDERED: Calcium Acetat667 MG PO (02:58)
[2021-05-07] MEDS ORDERED: CYCL10 PO (02:59)
[2021-05-07] MEDS ORDERED: FAMO20 PO (03:01)
[2021-05-07] MEDS ORDERED: NOVOLIN N100 UNIT/2 SC ×2 (03:03→03:06)
[2021-05-07] MEDS ORDERED: INSULIN AS100 UNIT/8 SC (03:08)
--- NOTE | 2021-05-07 03:23 | NUR ---
0210 - Spoke with resident provider, requsting PRN anti-anxiety medication for sleep and relief of anxiety symptoms. Per facility records, patient takes 0.5 mg PRN Xanax. Resident provider gave telephone order to administer home dose order.
[2021-05-07 05:22] LABS: BASOPHILS ABSOLUTE AUTO 0.04 K/mm3 (0.00-0.23); BASOPHILS PERCENT AUTO 1 % (0-2); EOSINOPHILS ABSOLUTE AUTO 0.15 K/mm3 (0.00-0.68); EOSINOPHILS PERCENT AUTO 2 % (0-6); Hemoglobin 9.3 g/dL (11.5-16.0); IMMATURE GRAN ABSOLUTE AUTO 0.03 K/mm3 (0.00-0.10); IMMATURE GRAN PERCENT AUTO 1 % (0-1); LYMPHOCYTES ABSOLUTE AUTO 1.29 K/mm3 (0.84-5.20); LYMPHOCYTES PERCENT AUTO 19 % (21-46); MONOCYTES ABSOLUTE AUTO 0.56 K/mm3 (0.16-1.47); MONOCYTES PERCENT AUTO 8 % (4-13); Mean Corpuscular HGB 29.5 pg (26.0-34.0); Mean Corpuscular Volume 95 fL (80-100); Mean Platelet Volume 10.1 fL (9.1-12.4); NEUTROPHILS ABSOLUTE AUTO 4.59 K/mm3 (1.96-9.15); NEUTROPHILS PERCENT AUTO 69 % (41-73); Platelet Count 149 K/mm3 (150-400); RDW Coefficient Variation 14.9 % (11.7-14.2); RDW Standard Deviation 51.9 fL (35.1-46.3); Red Blood Cell Count 3.15 M/mm3 (3.80-5.20); White Blood Cell Count 6.66 K/mm3 (4.00-11.30)
[2021-05-07 05:35] LABS: International Normalized Ratio 1.09; Prothrombin Time Results 11.4 Sec (9.7-11.5)
[2021-05-07 05:40] LABS: Albumin, Blood 2.9 g/dL (3.4-5.0); Anion Gap 9 mmol/L (6-16); Blood Urea Nitrogen 35 mg/dL (8-24); Bun/Creatinine Ratio 7.5 (12.0-20.0); CO2, Blood 32 mmol/L (21-32); Calcium, Blood 8.6 mg/dL (8.5-10.1); Chloride, Blood 96 mmol/L (98-108); Creatinine, Blood 4.64 mg/dL (0.40-1.00); Glomerular Filtration Rate 9 (60-); Glucose, Blood 166 mg/dL (70-99); Magnesium, Blood 2.2 mg/dL (1.6-2.4); Phosphorus, Blood 4.8 mg/dL (2.5-4.9); Potassium, Blood 3.4 mmol/L (3.5-5.5); Sodium, Blood 137 mmol/L (136-145)
--- NOTE | 2021-05-07 06:30 | NUR ---
SHIFT SUMMARY: PATIENT A/OX4. APPEARED TO HAVE OFF/ON RESTLESSNESS THROUGHOUT SHIFT AND EPISODES OF INCREASED ANXIETY. RESPIRATORY STATUS- CONTINUED 3L O2 NASAL CANNULA, INCREASED SHORTNESS OF BREATH WITH MOVEMENT, DIMINISHED LUNG SOUNDS RIGHT LOBE, EXPIRATORY WHEEZE THROUGHOUT LUNG SIDDIQUI. PATIENT AMBULATORY WITH STAND BY ASSIST TO BEDSIDE COMMODE.
--- NOTE | 2021-05-07 12:00 | NUR ---
PATIENT TRANSPORTED TO DIALYSIS AT 9:40 THIS MORNING
[2021-05-07 16:19] LABS: Automated BF WBC Count 0.216 K/mm3 (0-999); Body Fluid WBC Count 216 /mm3 (0-999)
[2021-05-07 16:29] LABS: Glucose, Body Fluid 240 mg/dL
[2021-05-07 16:37] LABS: Lactate Dehydrogenase, Body Fl 73 U/L
[2021-05-07 16:48] LABS: Triglycerides, Body Fluid 10 mg/dL
[2021-05-07 16:49] LABS: RBC Count, Body Fluid 570 /mm3 (0-0); pH, Body Fluid 7.9
[2021-05-07 17:13] LABS: Appearance, Body Fluid Clear (Clear); Color, Body Fluid Yellow (None-Yellow); Total Cell Count, Body Fluid 100
[2021-05-08] MEDS ORDERED: TRAZ50 PO (00:23)
[2021-05-08 04:46] LABS: BASOPHILS ABSOLUTE AUTO 0.02 K/mm3 (0.00-0.23); BASOPHILS PERCENT AUTO 0 % (0-2); EOSINOPHILS ABSOLUTE AUTO 0.02 K/mm3 (0.00-0.68); EOSINOPHILS PERCENT AUTO 0 % (0-6); Hematocrit 32.4 % (33.0-51.0); Hemoglobin 9.8 g/dL (11.5-16.0); IMMATURE GRAN ABSOLUTE AUTO 0.02 K/mm3 (0.00-0.10); IMMATURE GRAN PERCENT AUTO 0 % (0-1); LYMPHOCYTES ABSOLUTE AUTO 0.87 K/mm3 (0.84-5.20); LYMPHOCYTES PERCENT AUTO 12 % (21-46); MONOCYTES ABSOLUTE AUTO 0.65 K/mm3 (0.16-1.47); MONOCYTES PERCENT AUTO 9 % (4-13); Mean Corpuscular HGB 29.2 pg (26.0-34.0); Mean Corpuscular HGB Conc 30.2 g/dL (31.5-36.5); Mean Corpuscular Volume 96 fL (80-100); Mean Platelet Volume 9.8 fL (9.1-12.4); NEUTROPHILS ABSOLUTE AUTO 5.99 K/mm3 (1.96-9.15); NEUTROPHILS PERCENT AUTO 79 % (41-73); Platelet Count 164 K/mm3 (150-400); RDW Standard Deviation 53.1 fL (35.1-46.3); Red Blood Cell Count 3.36 M/mm3 (3.80-5.20); White Blood Cell Count 7.57 K/mm3 (4.00-11.30)
[2021-05-08 05:04] LABS: Albumin, Blood 2.9 g/dL (3.4-5.0); Anion Gap 8 mmol/L (6-16); Blood Urea Nitrogen 36 mg/dL (8-24); Bun/Creatinine Ratio 8.7 (12.0-20.0); C-REACTIVE PROTEIN, EXT RANGE 0.797 mg/dL (0.000-0.300); CO2, Blood 27 mmol/L (21-32); Calcium, Blood 8.9 mg/dL (8.5-10.1); Chloride, Blood 103 mmol/L (98-108); Creatinine, Blood 4.14 mg/dL (0.40-1.00); Glomerular Filtration Rate 11 (60-); Glucose, Blood 146 mg/dL (70-99); Magnesium, Blood 2.3 mg/dL (1.6-2.4); Phosphorus, Blood 3.6 mg/dL (2.5-4.9); Potassium, Blood 4.4 mmol/L (3.5-5.5); Sodium, Blood 138 mmol/L (136-145)
--- NOTE | 2021-05-08 06:09 | NUR ---
SHIFT SUMMARY: A/0 X3- OCCASSIONAL DISORIENTATION TO PLACE/TIME- REORIENTED SUCCESSFULLY RESPIRATORY STATUS IMPROVED POST THORACENTESIS- 3L O2- WILL HAVE GOAL TO WEAN OXYGEN AND MONITOR
[2021-05-08] MEDS ORDERED: PRED20 PO (10:41)
--- NOTE | 2021-05-08 17:35 | NUR ---
PATIENT IS AWAKE,ALERT AND ORIENTED TIMES THREE.DENIES PAIN. PATIENT AMBULATE POE WAY, NO ACUTE DISTRESS NOTED. PATIENT IS PENDING PLACEMENT. PATIENT IS ON OXYGEN 3L OXYGEN SATURATION 94%.
--- NOTE | 2021-05-09 04:54 | NUR ---
SHIFT SUMMARY PATIENT ALERT WITH SOME CONFUSION AT TIME PLEASANT IN THIS SHIFT ABLE TO ABULATE TO BATHROOM WITH STANDBY ASSIST C/O GENERAL PAIN AND REQUESTED FOR ANXIETY MADICATION AT BEDTIME ADM WITH RELIEF PATIENT NOTED QUITLY RESTING WITH EYES CLOSED.NO ACUTE CHANGE IN THIS SHIFT PT POSSIBLE TODAY D/C .
--- NOTE | 2021-05-09 08:00 | NUR ---
pt sitting on the side of the bed eating breakfast, a/ox3, forgetful, repeats questions, cooperative with care, follows commands well, denies pain, seems a bit confused about the thorancantesis she had yesterday, lungs are clear, a bit course in bases, resp even and unlabored, no cough noted, hrr, no edema noted, ppp+1, cap refill <3sec, vs stable, afebrile, iv site is clear and patent, s.l. to rhand, btx4, abd flat soft nontender, she reports she voids, dialysis shunt to left forearm, bruite auscultated, skin has some bruising, otherwise c/w/d, juancarlos, indep in room, call light in reach, took po meds without diff, will be having dialysis today, dialysis nurse asked to hold all b/p meds for now.
[2021-05-09 09:32] LABS: BASOPHILS ABSOLUTE AUTO 0.02 K/mm3 (0.00-0.23); BASOPHILS PERCENT AUTO 0 % (0-2); EOSINOPHILS ABSOLUTE AUTO 0.07 K/mm3 (0.00-0.68); EOSINOPHILS PERCENT AUTO 1 % (0-6); Hematocrit 30.4 % (33.0-51.0); Hemoglobin 9.6 g/dL (11.5-16.0); IMMATURE GRAN ABSOLUTE AUTO 0.04 K/mm3 (0.00-0.10); IMMATURE GRAN PERCENT AUTO 0 % (0-1); LYMPHOCYTES ABSOLUTE AUTO 1.65 K/mm3 (0.84-5.20); LYMPHOCYTES PERCENT AUTO 17 % (21-46); MONOCYTES ABSOLUTE AUTO 0.71 K/mm3 (0.16-1.47); MONOCYTES PERCENT AUTO 7 % (4-13); Mean Corpuscular HGB 29.4 pg (26.0-34.0); Mean Corpuscular HGB Conc 31.6 g/dL (31.5-36.5); Mean Corpuscular Volume 93 fL (80-100); Mean Platelet Volume 9.6 fL (9.1-12.4); NEUTROPHILS ABSOLUTE AUTO 7.13 K/mm3 (1.96-9.15); NEUTROPHILS PERCENT AUTO 74 % (41-73); Platelet Count 209 K/mm3 (150-400); RDW Coefficient Variation 15.1 % (11.7-14.2); RDW Standard Deviation 51.7 fL (35.1-46.3); Red Blood Cell Count 3.26 M/mm3 (3.80-5.20); White Blood Cell Count 9.62 K/mm3 (4.00-11.30)
[2021-05-09] MEDS ORDERED: POTA10T PO (09:37)
[2021-05-09 10:27] LABS: Albumin, Blood 3.2 g/dL (3.4-5.0); Anion Gap 9 mmol/L (6-16); Blood Urea Nitrogen 55 mg/dL (8-24); Bun/Creatinine Ratio 10.4 (12.0-20.0); CO2, Blood 25 mmol/L (21-32); Calcium, Blood 9.1 mg/dL (8.5-10.1); Chloride, Blood 102 mmol/L (98-108); Creatinine, Blood 5.31 mg/dL (0.40-1.00); Glomerular Filtration Rate 8 (60-); Glucose, Blood 162 mg/dL (70-99); Magnesium, Blood 2.3 mg/dL (1.6-2.4); Phosphorus, Blood 3.7 mg/dL (2.5-4.9); Potassium, Blood 4.6 mmol/L (3.5-5.5); Sodium, Blood 136 mmol/L (136-145)
--- NOTE | 2021-05-09 18:13 | NUR ---
pt had dialysis today with 1500 removed, she is concerned about going home, she will be returning home in am. no acute changes this shift. call light in reach.
--- NOTE | 2021-05-10 04:57 | NUR ---
SHIFT SUMMARY PATIENT AOX3 WITH SOME FORGETFULNESS AT TIME C/O PAIN TO HER BACK 09/18 OXYCODEN ADMIN WITH RELIEF LUNGS SOUNDS CLEAR NO ACUE CHANGE IN THIS SHIFT PT TO BE D/C HOME TODAY .
--- NOTE | 2021-05-10 07:29 | NUR ---
PT. PULLED OUT IV. RN NOTIFIED.
--- NOTE | 2021-05-10 13:21 | NUR ---
CHARTING A BEATING MACHINE OPERATOR 2 STUDENT.
--- NOTE | 2021-05-10 13:45 | NUR ---
DC SUMMARY PT AxOx3-4 WITH INTERM CONFUSION. PT DISCHARGING HOME TO [place] TODAY. PT GIVEN DC INSTRUCTIONS AND ALSO COPY FAXED TO FACILITY, INCLUDING DC MED LIST, AND FOLLOW UP APPOINTMENTS AND DIALYSIS SCHEDULE. PT DENIES ANY QUESTIONS AT THIS TIME. VITALS REVIEWED. PT SAFELY ESCORTED OUT VIA WC BY MANAGER TALENT AND [place] TRANSPORTER.
== END 2021-05-10 14:01 | disposition home or self-care (01) | DRG 189 ==
LOC: ER 17:49 → MEDS 17:50 → ENPENDDIS 05-08 17:04 → MEDS 05-10 14:01
PROVIDERS: Family Medicine; Student in an Organized Health Care Education/Training Program; ADMIT Internal Medicine
PROC: 0W9930Z Drainage of Right Pleural Cavity with Drainage Device, Percutaneous Approach (ICD-10-PCS; principal; 2021-05-07)
DX: J96.01 Acute respiratory failure with hypoxia (principal); N18.6 End stage renal disease; I21.A1 Myocardial infarction type 2; J90 Pleural effusion, not elsewhere classified; F11.20 Opioid dependence, uncomplicated; I12.0 Hypertensive chronic kidney disease with stage 5 chronic kidney disease or end stage renal disease; Z20.822 Contact with and (suspected) exposure to COVID-19; G25.81 Restless legs syndrome; D63.1 Anemia in chronic kidney disease; E88.09 Other disorders of plasma-protein metabolism, not elsewhere classified; E87.70 Fluid overload, unspecified; G89.29 Other chronic pain; F17.200 Nicotine dependence, unspecified, uncomplicated; E55.9 Vitamin D deficiency, unspecified; F41.9 Anxiety disorder, unspecified; E78.5 Hyperlipidemia, unspecified; Z86.14 Personal history of Methicillin resistant Staphylococcus aureus infection; Z90.49 Acquired absence of other specified parts of digestive tract; Z98.890 Other specified postprocedural states; Z88.8 Allergy status to other drugs, medicaments and biological substances; Z79.4 Long term (current) use of insulin; Z79.52 Long term (current) use of systemic steroids; Z79.899 Other long term (current) drug therapy
CPT/HCPCS: 0241U; 32555; 36415; 71045; 71250; 80053; 80069; 82042; 82945; 82947; 83615; 83735; 83880; 83986; 84132; 84157; 84478; 84484; 85018; 85025; 85610; 85651; 86140; 87070; 87205; 87206; 88108; 88305; 89051; 93005; 93010; 93306; 94640; 94760; 94761; 99285-25; A9270; J0881; J1644; J1815; J2930; J7512

== ENCOUNTER 2021-06-19 17:46 | Emergency (ER) | payer MEDICARE ==
[~2021-06-19] VITALS: Ht 152.4 cm; Wt 77.1 kg
[~2021-06-19 17:46] MED LIST changes: +ACET500 PO; +ARNUITY ELLIP100 MCG INH; +COMBIVENT RESPIM4 G1 INH; +CYCL10 PO; +Calcium Acetat667 MG PO; +FAMO20 PO; +INSULIN AS100 UNIT/8 SC; +MERIBIN5 MG PO; +NEPRO; +NOVOLIN N100 UNIT/2 SC; +POTA10T PO; +PRED20 PO; +SERT50 PO; +TRAZ50 PO
[2021-06-19] MEDS ORDERED: Voltaren100 GM TOP (18:43)
== END 2021-06-19 19:22 | disposition home or self-care (01) ==
LOC: ER 17:46
DX: M94.0 Chondrocostal junction syndrome [Tietze] (principal); Z79.899 Other long term (current) drug therapy
CPT/HCPCS: 99283

== ENCOUNTER 2021-08-11 15:07 | Inpatient (IN) | payer MEDICARE ==
[~2021-08-11] VITALS: Ht 152.4 cm; Wt 68.0 kg
[~2021-08-11 15:07] MED LIST changes: +Voltaren100 GM TOP
[2021-08-11 16:09] LABS: BASOPHILS ABSOLUTE AUTO 0.01 K/mm3 (0.00-0.23); BASOPHILS PERCENT AUTO 0 % (0-2); EOSINOPHILS ABSOLUTE AUTO 0.02 K/mm3 (0.00-0.68); EOSINOPHILS PERCENT AUTO 1 % (0-6); Hemoglobin 9.1 g/dL (11.5-16.0); IMMATURE GRAN ABSOLUTE AUTO 0.01 K/mm3 (0.00-0.10); IMMATURE GRAN PERCENT AUTO 0 % (0-1); LYMPHOCYTES ABSOLUTE AUTO 0.62 K/mm3 (0.84-5.20); LYMPHOCYTES PERCENT AUTO 16 % (21-46); MONOCYTES ABSOLUTE AUTO 0.59 K/mm3 (0.16-1.47); MONOCYTES PERCENT AUTO 15 % (4-13); Mean Corpuscular HGB 27.1 pg (26.0-34.0); Mean Corpuscular HGB Conc 30.3 g/dL (31.5-36.5); Mean Corpuscular Volume 89 fL (80-100); Mean Platelet Volume 9.2 fL (9.1-12.4); NEUTROPHILS PERCENT AUTO 68 % (41-73); Platelet Count 177 K/mm3 (150-400); RDW Coefficient Variation 16.1 % (11.7-14.2); RDW Standard Deviation 52.6 fL (35.1-46.3); Red Blood Cell Count 3.36 M/mm3 (3.80-5.20); White Blood Cell Count 3.85 K/mm3 (4.00-11.30)
[2021-08-11 16:26] LABS: Albumin, Blood 2.8 g/dL (3.4-5.0); Albumin/Globulin Ratio 0.7 (0.8-1.8); Bilirubin, Total 0.4 mg/dL (0.1-1.0); Bun/Creatinine Ratio 9.6 (12.0-20.0); Calcium, Blood 8.4 mg/dL (8.5-10.1); Creatinine, Blood 1.97 mg/dL (0.40-1.00); Globulin, Blood 3.9 g/dL (2.2-4.0); Potassium, Blood 3.7 mmol/L (3.5-5.5); Total Protein, Blood 6.7 g/dL (6.4-8.2)
[2021-08-11] MEDS ORDERED: PREG50 PO (21:54)
[2021-08-11] MEDS ORDERED: PANT40 PO (21:55)
[2021-08-12 04:31] LABS: Bun/Creatinine Ratio 11.5 (12.0-20.0); Calcium, Blood 8.4 mg/dL (8.5-10.1); Creatinine, Blood 3.04 mg/dL (0.40-1.00); Potassium, Blood 4.3 mmol/L (3.5-5.5)
[2021-08-12 12:51] LABS: International Normalized Ratio 1.02; Prothrombin Time Results 10.7 Sec (9.7-11.5)
[2021-08-13 05:32] LABS: Hemoglobin 8.4 g/dL (11.5-16.0)
[2021-08-13 05:53] LABS: Albumin, Blood 2.7 g/dL (3.4-5.0); Anion Gap 11 mmol/L (6-16); Blood Urea Nitrogen 81 mg/dL (8-24); Bun/Creatinine Ratio 17.2 (12.0-20.0); CO2, Blood 29 mmol/L (21-32); Calcium, Blood 8.7 mg/dL (8.5-10.1); Chloride, Blood 96 mmol/L (98-108); Creatinine, Blood 4.71 mg/dL (0.40-1.00); Glomerular Filtration Rate 9 (60-); Glucose, Blood 80 mg/dL (70-99); Magnesium, Blood 2.8 mg/dL (1.6-2.4); Phosphorus, Blood 4.8 mg/dL (2.5-4.9); Potassium, Blood 4.1 mmol/L (3.5-5.5); Sodium, Blood 136 mmol/L (136-145)
[2021-08-14 05:56] LABS: Hematocrit 26.9 % (33.0-51.0)
[2021-08-14 06:23] LABS: Albumin, Blood 2.6 g/dL (3.4-5.0); Anion Gap 9 mmol/L (6-16); Blood Urea Nitrogen 49 mg/dL (8-24); Bun/Creatinine Ratio 14.1 (12.0-20.0); CO2, Blood 30 mmol/L (21-32); Calcium, Blood 8.5 mg/dL (8.5-10.1); Chloride, Blood 98 mmol/L (98-108); Creatinine, Blood 3.47 mg/dL (0.40-1.00); Glomerular Filtration Rate 13 (60-); Glucose, Blood 67 mg/dL (70-99); Magnesium, Blood 3.4 mg/dL (1.6-2.4); Phosphorus, Blood 3.3 mg/dL (2.5-4.9); Potassium, Blood 3.6 mmol/L (3.5-5.5); Sodium, Blood 137 mmol/L (136-145)
[2021-08-15 05:52] LABS: Hematocrit 26.9 % (33.0-51.0); Hemoglobin 7.9 g/dL (11.5-16.0)
[2021-08-15 06:21] LABS: Albumin, Blood 2.5 g/dL (3.4-5.0); Anion Gap 6 mmol/L (6-16); Blood Urea Nitrogen 60 mg/dL (8-24); Bun/Creatinine Ratio 12.5 (12.0-20.0); CO2, Blood 32 mmol/L (21-32); Calcium, Blood 8.7 mg/dL (8.5-10.1); Chloride, Blood 98 mmol/L (98-108); Glomerular Filtration Rate 9 (60-); Glucose, Blood 75 mg/dL (70-99); Magnesium, Blood 3.8 mg/dL (1.6-2.4); Phosphorus, Blood 4.4 mg/dL (2.5-4.9); Potassium, Blood 4.1 mmol/L (3.5-5.5); Sodium, Blood 136 mmol/L (136-145)
[2021-08-15] MEDS ORDERED: HUMULIN N100 UNIT/6 SC (11:10)
[2021-08-16 05:46] LABS: Hematocrit 28.1 % (33.0-51.0); Hemoglobin 8.2 g/dL (11.5-16.0)
[2021-08-16 06:14] LABS: Albumin, Blood 2.7 g/dL (3.4-5.0); Anion Gap 6 mmol/L (6-16); Blood Urea Nitrogen 33 mg/dL (8-24); Bun/Creatinine Ratio 8.9 (12.0-20.0); CO2, Blood 32 mmol/L (21-32); Calcium, Blood 8.4 mg/dL (8.5-10.1); Chloride, Blood 102 mmol/L (98-108); Creatinine, Blood 3.71 mg/dL (0.40-1.00); Glomerular Filtration Rate 12 (60-); Glucose, Blood 119 mg/dL (70-99); Magnesium, Blood 3.2 mg/dL (1.6-2.4); Phosphorus, Blood 3.6 mg/dL (2.5-4.9); Potassium, Blood 4.1 mmol/L (3.5-5.5); Sodium, Blood 140 mmol/L (136-145)
[2021-08-16 13:53] LABS: Influenza A, PCR NEGATIVE (NEGATIVE); Influenza B, PCR NEGATIVE (NEGATIVE); Resp Syncytial Virus, PCR NEGATIVE (NEGATIVE)
[2021-08-16 13:55] LABS: SARS-Cov-2 (COVID-19) PCR, MMC POSITIVE (NEGATIVE)
[2021-08-17 05:54] LABS: Hematocrit 26.7 % (33.0-51.0); Hemoglobin 7.7 g/dL (11.5-16.0)
[2021-08-17 06:10] LABS: Albumin, Blood 2.7 g/dL (3.4-5.0); Anion Gap 7 mmol/L (6-16); Blood Urea Nitrogen 43 mg/dL (8-24); Bun/Creatinine Ratio 8.8 (12.0-20.0); CO2, Blood 31 mmol/L (21-32); Calcium, Blood 8.9 mg/dL (8.5-10.1); Chloride, Blood 101 mmol/L (98-108); Creatinine, Blood 4.87 mg/dL (0.40-1.00); Glomerular Filtration Rate 9 (60-); Glucose, Blood 123 mg/dL (70-99); Magnesium, Blood 3.5 mg/dL (1.6-2.4); Phosphorus, Blood 3.9 mg/dL (2.5-4.9); Potassium, Blood 4.2 mmol/L (3.5-5.5); Sodium, Blood 139 mmol/L (136-145)
== END 2021-08-17 16:52 | disposition home or self-care (01) | DRG 189 ==
LOC: ER 15:07 → PCU 15:08 → MEDS 08-12 12:05 → PCU 08-12 15:59 → MEDS 08-12 18:12
PROVIDERS: Emergency Medicine; Internal Medicine Nephrology; ADMIT Internal Medicine
PROC: 0W9930Z Drainage of Right Pleural Cavity with Drainage Device, Percutaneous Approach (ICD-10-PCS; principal; 2021-08-12)
PROC: 8E0ZXY6 Isolation (ICD-10-PCS; 2021-08-12)
PROC: 3E0333Z Introduction of Anti-inflammatory into Peripheral Vein, Percutaneous Approach (ICD-10-PCS; 2021-08-12)
DX: J96.01 Acute respiratory failure with hypoxia (principal); N18.6 End stage renal disease; I21.A1 Myocardial infarction type 2; U07.1 COVID-19; N25.81 Secondary hyperparathyroidism of renal origin; I12.0 Hypertensive chronic kidney disease with stage 5 chronic kidney disease or end stage renal disease; F11.20 Opioid dependence, uncomplicated; R65.10 Systemic inflammatory response syndrome (SIRS) of non-infectious origin without acute organ dysfunction; J91.8 Pleural effusion in other conditions classified elsewhere; E11.22 Type 2 diabetes mellitus with diabetic chronic kidney disease; D63.1 Anemia in chronic kidney disease; G25.81 Restless legs syndrome; F17.200 Nicotine dependence, unspecified, uncomplicated; J44.9 Chronic obstructive pulmonary disease, unspecified; E55.9 Vitamin D deficiency, unspecified; K21.9 Gastro-esophageal reflux disease without esophagitis; G89.29 Other chronic pain; I48.91 Unspecified atrial fibrillation; E78.5 Hyperlipidemia, unspecified; F41.9 Anxiety disorder, unspecified; Z90.49 Acquired absence of other specified parts of digestive tract; Z98.890 Other specified postprocedural states; Z88.8 Allergy status to other drugs, medicaments and biological substances; Z86.14 Personal history of Methicillin resistant Staphylococcus aureus infection; Z79.4 Long term (current) use of insulin; Z79.899 Other long term (current) drug therapy
CPT/HCPCS: 0241U; 32555; 36415; 71045; 71260; 80048; 80053; 80069; 82947; 83735; 83880; 84145; 84443; 84484; 85014; 85018; 85025; 85610; 85730; 93005; 93010; 94640; 94664; 94760; 96374; 96375; 96376; 99285-25; A9270; G0378; J0881; J1100; J1644; J1815; J2060; J2405; M0222; Q9967

== ENCOUNTER 2021-08-24 08:47 | Emergency (ER) | payer MEDICARE ==
[~2021-08-24] VITALS: Ht 152.4 cm; Wt 68.0 kg
[~2021-08-24 08:47] MED LIST changes: +HUMULIN N100 UNIT/6 SC; +PANT40 PO; +PREG50 PO
== END 2021-08-24 12:35 | disposition home or self-care (01) ==
LOC: ER 08:47
DX: S00.03XA Contusion of scalp, initial encounter (principal); N18.6 End stage renal disease; F17.200 Nicotine dependence, unspecified, uncomplicated; W19.XXXA Unspecified fall, initial encounter; Z99.2 Dependence on renal dialysis
CPT/HCPCS: 70450; 99283-25

== ENCOUNTER 2021-11-22 16:31 | Emergency (ER) | payer MEDICARE ==
[~2021-11-22] VITALS: Ht 165.1 cm; Wt 70.3 kg
== END 2021-11-22 18:30 | disposition home or self-care (01) ==
LOC: ER 16:31
DX: I95.3 Hypotension of hemodialysis (principal); N18.6 End stage renal disease; E11.22 Type 2 diabetes mellitus with diabetic chronic kidney disease; F17.200 Nicotine dependence, unspecified, uncomplicated; Z88.8 Allergy status to other drugs, medicaments and biological substances; Z79.899 Other long term (current) drug therapy; Z79.4 Long term (current) use of insulin
CPT/HCPCS: 93005; 93010; 99285-25

== ENCOUNTER 2022-01-06 00:45 | Day surgery (SDC) | payer MEDICARE ==
[~2022-01-06 00:45] MED LIST changes: +HYDR1TAB94 PO
[2022-01-06] MEDS ORDERED: SINEMET 25-1001 EAC1 PO (07:55)
[2022-01-06] MEDS ORDERED: COMBIVENT RESPIM4 G1 INH ×2 (07:56→08:20)
[2022-01-06] MEDS ORDERED: NOVOLIN R100 UNIT/2 SC (08:32)
== END 2022-01-06 12:52 | disposition home or self-care (01) ==
LOC: ATC 00:45
DX: D64.9 Anemia, unspecified (principal); N18.6 End stage renal disease
CPT/HCPCS: 86850; 86900; 86901; 86923; J7040; P9016

== ENCOUNTER 2022-02-11 14:47 | Inpatient (IN) | payer MEDICARE ==
[~2022-02-11] VITALS: Ht 152.4 cm; Wt 68.7 kg
[~2022-02-11 14:47] MED LIST changes: -HUMULIN N100 UNIT/6 SC; +NOVOLIN R100 UNIT/2 SC; +PANT20 PO; -PANT40 PO; +SINEMET 25-1001 EAC1 PO
[2022-02-11 15:34] LABS: BASOPHILS ABSOLUTE AUTO 0.01 K/mm3 (0.00-0.23); BASOPHILS PERCENT AUTO 0 % (0-2); EOSINOPHILS ABSOLUTE AUTO 0.12 K/mm3 (0.00-0.68); EOSINOPHILS PERCENT AUTO 2 % (0-6); IMMATURE GRAN ABSOLUTE AUTO 0.08 K/mm3 (0.00-0.10); IMMATURE GRAN PERCENT AUTO 1 % (0-1); LYMPHOCYTES ABSOLUTE AUTO 0.89 K/mm3 (0.84-5.20); LYMPHOCYTES PERCENT AUTO 12 % (21-46); MONOCYTES ABSOLUTE AUTO 0.54 K/mm3 (0.16-1.47); MONOCYTES PERCENT AUTO 7 % (4-13); Mean Corpuscular HGB 32.2 pg (26.0-34.0); Mean Corpuscular Volume 101 fL (80-100); Mean Platelet Volume 9.1 fL (9.1-12.4); NEUTROPHILS ABSOLUTE AUTO 5.82 K/mm3 (1.96-9.15); NEUTROPHILS PERCENT AUTO 78 % (41-73); NRBC ABSOLUTE 0.02 K/mm3 (0.00-0.02); NRBC Auto 0.3 /100 WBC (0.0-0.2); Platelet Count 238 K/mm3 (150-400); RDW Coefficient Variation 17.3 % (11.7-14.2); RDW Standard Deviation 59.7 fL (35.1-46.3); Red Blood Cell Count 1.49 M/mm3 (3.80-5.20); White Blood Cell Count 7.46 K/mm3 (4.00-11.30)
[2022-02-11 15:42] LABS: Albumin, Blood 2.7 g/dL (3.4-5.0); Albumin/Globulin Ratio 0.8 (0.8-1.8); Bilirubin, Total 0.2 mg/dL (0.1-1.0); Bun/Creatinine Ratio 11.6 (12.0-20.0); Calcium, Blood 8.4 mg/dL (8.5-10.1); Creatinine, Blood 2.25 mg/dL (0.40-1.00); Globulin, Blood 3.2 g/dL (2.2-4.0); Potassium, Blood 3.6 mmol/L (3.5-5.5); Total Protein, Blood 5.9 g/dL (6.4-8.2)
[2022-02-11 15:46] LABS: Hemoglobin 4.8 g/dL (11.5-16.0)
[2022-02-12 00:13] LABS: Hematocrit 21.3 % (33.0-51.0); Hemoglobin 7.3 g/dL (11.5-16.0)
--- NOTE | 2022-02-12 01:14 | NUR ---
ARRIVAL TO PCU PT ARRIVED TO PCU 08 APPROX 2200 VIA ED YESICA. PROTONIX GTT INFUSING. PT A/O X 3, AND EMOTIONAL W/ CRYING EPISODES. REQUIRES FREQUENT REDIRECTION AND REASSURANCE. PT EDUCATED ON USING CALL LIGHT AND CALLING FOR ASSISSTANCE WHEN NEEDING TO VOID. PT STATES SHE IS CONT. VERY MOBILE IN BED AND TURING SIDE TO SIDE. CALL MADE TO RESIDENT APPROX 2300 REGARDING PT BEING VERY ANXIOUS, AGITATED AND EMOTIONAL. ORDERS RECEIVED.
--- NOTE | 2022-02-12 01:49 | NUR ---
CALL FOR RECORDS MAIRA MEDEL CALLED AT 0145 TO GET MEDICAL RECORDS FAXED OVER. PT NAME AND FAX NUMBER FOR PCU GIVEN.
[2022-02-12 04:11] LABS: Hematocrit 20.3 % (33.0-51.0); Hemoglobin 6.8 g/dL (11.5-16.0); Mean Corpuscular HGB 31.1 pg (26.0-34.0); Mean Corpuscular HGB Conc 33.5 g/dL (31.5-36.5); Mean Platelet Volume 8.8 fL (9.1-12.4); NRBC ABSOLUTE 0.02 K/mm3 (0.00-0.02); NRBC Auto 0.3 /100 WBC (0.0-0.2); Platelet Count 201 K/mm3 (150-400); RDW Coefficient Variation 18.7 % (11.7-14.2); Red Blood Cell Count 2.19 M/mm3 (3.80-5.20); White Blood Cell Count 7.47 K/mm3 (4.00-11.30)
[2022-02-12 04:13] LABS: Mean Corpuscular Volume 93 fL (80-100)
[2022-02-12 04:28] LABS: Albumin, Blood 2.5 g/dL (3.4-5.0); Anion Gap 6 mmol/L (6-16); Blood Urea Nitrogen 44 mg/dL (8-24); Bun/Creatinine Ratio 11.3 (12.0-20.0); CO2, Blood 35 mmol/L (21-32); Calcium, Blood 8.2 mg/dL (8.5-10.1); Chloride, Blood 99 mmol/L (98-108); Creatinine, Blood 3.89 mg/dL (0.40-1.00); Glomerular Filtration Rate 12 (60-); Glucose, Blood 205 mg/dL (70-99); Magnesium, Blood 2.5 mg/dL (1.6-2.4); Phosphorus, Blood 3.1 mg/dL (2.5-4.9); Potassium, Blood 4.1 mmol/L (3.5-5.5); Sodium, Blood 140 mmol/L (136-145)
[2022-02-12] MEDS ORDERED: Calcium Acetat667 MG PO (05:10)
[2022-02-12] MEDS ORDERED: NOVOLIN N100 UNIT/2 SC (05:18)
[2022-02-12] MEDS ORDERED: POTA10T PO (05:28)
[2022-02-12] MEDS ORDERED: INSULIN AS100 UNIT/8 SC (05:30)
--- NOTE | 2022-02-12 05:30 | NUR ---
CALL TO DR SARI GUO NOTIFIED OF AM LABS, INCLUDING HGB OF 6.8. ORDER RECEIVED FOR PT BE DIALYZED TODAY AND TO RECEIVE TWO UNITS OF PRBCS DURING DIALYSIS.
[2022-02-12] MEDS ORDERED: CYCL10 PO (05:31)
[2022-02-12] MEDS ORDERED: ACET500 PO (05:34)
--- NOTE | 2022-02-12 06:13 | NUR ---
SHIFT SUMMARY NO ACUTE EVENTS T/O NIGHT. MEDICATED ONE TIME WITH ATIVAN PER EMAR. PT IMPULSIVE AND FORGETFUL AT TIMES. POWERGLIDE PLACED IN KORIN. PROTONIX GTT INFUSING. PLAN FOR EGD THIS AM. PT NPO AFTER 0000. ASSISTED WITH BEDPAN ONCE. MAIRA MEDEL SENT LIST OF MEDICATIONS FROM May. PT STATES SISTER KNOWS MEDICATIONS. CALLED SISTER MIKE PER PT REQUEST. NO ANSWER. VSS. PT ON 2.5L NC. WILL REPORT TO DAYSRAMANDEEP GRADY.
[2022-02-12 12:08] LABS: Hemoglobin 10.4 g/dL (11.5-16.0)
--- NOTE | 2022-02-12 15:12 | NUR ---
02/12/22 1512 Bayron Green History, Chart, Medications and Allergies reviewed before start of procedure.MONITOR INTACT WITH CONTINUOUS PULSE OXIMETRY AND INTERMITTENT BP.Bite Block Placed AFTER LIDOCAINE SPRAY TO BACK OF THROAT.
--- NOTE | 2022-02-12 17:32 | NUR ---
PT SUMMARY: PT RECEIVED TOTAL OF 4 PRBC FOR TODAY, 2PRBC IN THE ER AND ANOTHER 2 PRBC DURING DIALYSIS. H&H POST TRANSFUSION TREND UP TO 10.4. PT DENIES ANY CHEST PAIN/PRESSURE HAD HEADACHE 11/19 BEFORE DIALYSIS MEDICATED WITH TYLENOL AND WAS RELIEVED. ENDOSCOPY WAS DONE TODAY FOUND SOME DUODENAL ULCER THAT WAS TREATED PT RECEOVERED WELL VITALS HRR 80-90'S, SATS ABOVE 92% ON 2L OF O2, AFEBRILE. DIET RESUMED POST PROCEDURE PT TOLERATED WELL. SISTER CASE CALLED AND WAS GIVEN AN UPDATE REGARDING PT'S STATUS. NO COMPLAINS OF THIS TIME, PT ALERT AND ORIENTED AT BASELINE, EMOTIONAL AT TIMES, ABLE TO MAKE NEEDS KNOWN, CAN MOVE INDEPENDENTLY IN BED. NO OTHER ISSUES ENCOUNTERED WILL REPORT TO ONCOMING SHIFT
[2022-02-12 18:12] LABS: Hematocrit 30.9 % (33.0-51.0); Hemoglobin 10.8 g/dL (11.5-16.0)
--- NOTE | 2022-02-12 21:44 | NUR ---
PROVIDER CONTACT THIS RN CALLS DR CHÁVEZ TO REQUEST SOMETHING FOR PT'S RLS. PT IS TEARFUL AND ANXIOUS C/O RESTLESS LEGS. HAS NOT BEEN ON [facility] SINCE ADMISSION. DR CHÁVEZ TO PUT IN ORDER FOR PT'S REQUIP.
[2022-02-13 00:20] LABS: Hematocrit 27.1 % (33.0-51.0); Hemoglobin 9.4 g/dL (11.5-16.0)
--- NOTE | 2022-02-13 01:13 | NUR ---
PT UPDATE PT STILL C/O RESTLESS LEGS. SITTING UP IN BED, STATES EVERYTHING IS BOTHERING HER INCLUDING BLANKETS ON HER SKIN. THIS RN CALLS TO RESIDENT ORDER OBTAINED FOR SINEMET PER PT MED LIST. PT MEDICATED PER ORDERS AND REPOSITIONED FOR COMFORT.
[2022-02-13 04:25] LABS: BASOPHILS ABSOLUTE AUTO 0.02 K/mm3 (0.00-0.23); BASOPHILS PERCENT AUTO 0 % (0-2); EOSINOPHILS ABSOLUTE AUTO 0.25 K/mm3 (0.00-0.68); EOSINOPHILS PERCENT AUTO 4 % (0-6); Hematocrit 29.1 % (33.0-51.0); IMMATURE GRAN ABSOLUTE AUTO 0.04 K/mm3 (0.00-0.10); IMMATURE GRAN PERCENT AUTO 1 % (0-1); LYMPHOCYTES ABSOLUTE AUTO 1.19 K/mm3 (0.84-5.20); LYMPHOCYTES PERCENT AUTO 17 % (21-46); MONOCYTES PERCENT AUTO 11 % (4-13); Mean Corpuscular HGB 30.9 pg (26.0-34.0); Mean Corpuscular HGB Conc 34.4 g/dL (31.5-36.5); Mean Corpuscular Volume 90 fL (80-100); Mean Platelet Volume 8.6 fL (9.1-12.4); NEUTROPHILS ABSOLUTE AUTO 4.84 K/mm3 (1.96-9.15); NEUTROPHILS PERCENT AUTO 68 % (41-73); Platelet Count 212 K/mm3 (150-400); RDW Coefficient Variation 17.6 % (11.7-14.2); RDW Standard Deviation 54.7 fL (35.1-46.3); Red Blood Cell Count 3.24 M/mm3 (3.80-5.20); White Blood Cell Count 7.14 K/mm3 (4.00-11.30)
[2022-02-13 04:44] LABS: Albumin, Blood 2.7 g/dL (3.4-5.0); Albumin/Globulin Ratio 0.8 (0.8-1.8); Bilirubin, Total 0.4 mg/dL (0.1-1.0); Bun/Creatinine Ratio 8.8 (12.0-20.0); Calcium, Blood 8.3 mg/dL (8.5-10.1); Creatinine, Blood 3.96 mg/dL (0.40-1.00); Globulin, Blood 3.4 g/dL (2.2-4.0); Magnesium, Blood 2.3 mg/dL (1.6-2.4); Phosphorus, Blood 4.5 mg/dL (2.5-4.9); Potassium, Blood 3.7 mmol/L (3.5-5.5); Total Protein, Blood 6.1 g/dL (6.4-8.2)
--- NOTE | 2022-02-13 07:13 | NUR ---
SHIFT SUMMARY PT AOX4 T/O SHIFT, BECAME IRRITABLE IN NIGHT D/T DISCOMFORT FROM RESTLESS LEGS. MEDICATED PER ORDERS FROM RESIDENT. PT CALMED AND WAS ABLE TO REST FOLLOWING DOSE WITH SINEMET. PT HAD NO OTHER COMPLAINTS OF PAIN T/O SHIFT. NO BM. JUDI USED T/O SHIFT FOR URGENCY. NO BM THIS SHIFT. PT DENIES ABD PAIN. RBBB RATE IN 80'S T/O MOST OF SHIFT, DENIED CP. UP TO LOW 100'S WITH REPOSITIONING IN BED.
--- NOTE | 2022-02-13 13:56 | NUR ---
UPDATE DISCHARGE INSTRUCTIONS PROVIDED TO PT. PT EDUCATED ON ALL CHANGES. PT REQUESTED SUPPOSITORY PRIOR TO DISCHARGE. PT MEDICATED PER EMAR. ALL QUESTIONS ANSWERED. TRANSPORTATION SET UP BY CARE MANAGEMENT. RIDE TO BE HERE AT 1530
== END 2022-02-13 15:33 | DRG 377 ==
LOC: ER 14:47 → ERHOLD 19:49 → PCU 19:49
PROVIDERS: Emergency Medicine; Family Medicine; Internal Medicine Gastroenterology; Internal Medicine Nephrology; ADMIT Internal Medicine
PROC: 30233N1 Transfusion of Nonautologous Red Blood Cells into Peripheral Vein, Percutaneous Approach (ICD-10-PCS; 2022-02-11)
PROC: 0DJ08ZZ Inspection of Upper Intestinal Tract, Via Natural or Artificial Opening Endoscopic (ICD-10-PCS; principal; 2022-02-12 08:30)
DX: K26.4 Chronic or unspecified duodenal ulcer with hemorrhage (principal); N18.6 End stage renal disease; D62 Acute posthemorrhagic anemia; I12.0 Hypertensive chronic kidney disease with stage 5 chronic kidney disease or end stage renal disease; F11.20 Opioid dependence, uncomplicated; G89.29 Other chronic pain; G20 Parkinson's disease; E11.22 Type 2 diabetes mellitus with diabetic chronic kidney disease; Z99.2 Dependence on renal dialysis; R51.9 Headache, unspecified; E66.9 Obesity, unspecified; Z88.8 Allergy status to other drugs, medicaments and biological substances; Z88.6 Allergy status to analgesic agent; I48.91 Unspecified atrial fibrillation; Z86.16 Personal history of COVID-19; E55.9 Vitamin D deficiency, unspecified; G25.81 Restless legs syndrome; Z87.891 Personal history of nicotine dependence; Z90.49 Acquired absence of other specified parts of digestive tract; Z98.890 Other specified postprocedural states; Z79.899 Other long term (current) drug therapy; Z79.4 Long term (current) use of insulin; E86.9 Volume depletion, unspecified; Z68.34 Body mass index [BMI] 34.0-34.9, adult; T39.315A Adverse effect of propionic acid derivatives, initial encounter; K44.9 Diaphragmatic hernia without obstruction or gangrene; K22.2 Esophageal obstruction; Z28.21 Immunization not carried out because of patient refusal
CPT/HCPCS: 36415; 36430; 80053; 80069; 82947; 83735; 84100; 85014; 85018; 85025; 85027; 86850; 86900; 86901; 86923; 93005; 93010; 97110; 97162; 97530; A9270; C1751; C9113; J0360; J0881; J2060; J2250; J2370; J2704; J3010; J7030; P9016

== ENCOUNTER 2022-07-13 14:46 | Inpatient (IN) | payer MEDICARE ==
[~2022-07-13] VITALS: Ht 152.4 cm; Wt 74.7 kg
[~2022-07-13 14:46] MED LIST changes: +ACET325 PO; +CATAPRES0.2 M1 PO; -CLON.1 PO; -METO100ER PO; +METO25ER PO; -PANT20 PO; +PANT40 PO; -SINEMET 25-1001 EACH PO
[2022-07-13 16:46] LABS: Source, Urine Straight Cath
[2022-07-13 16:50] LABS: Appearance, Urine Clear (Clear); Bilirubin, Urine Neg (Neg); Blood, Urine Neg (Neg); Color, Urine Yellow (P-Yellow); Glucose Qualitative, Urine 3+ (Neg); Ketones, Urine Neg (Neg); Leukocyte Esterase, Urine Neg (Neg); Nitrite, Urine Neg (Neg); Protein, Urine 3+ (Neg); Specific Gravity, Urine 1.015 (1.003-1.022); Urobilinogen, Urine NORM (Normal)
[2022-07-13 17:05] LABS: BASOPHILS ABSOLUTE AUTO 0.03 K/mm3 (0.00-0.23); BASOPHILS PERCENT AUTO 1 % (0-2); EOSINOPHILS ABSOLUTE AUTO 0.17 K/mm3 (0.00-0.68); EOSINOPHILS PERCENT AUTO 3 % (0-6); Hematocrit 18.9 % (33.0-51.0); Hemoglobin 6.1 g/dL (11.5-16.0); IMMATURE GRAN ABSOLUTE AUTO 0.03 K/mm3 (0.00-0.10); IMMATURE GRAN PERCENT AUTO 1 % (0-1); LYMPHOCYTES ABSOLUTE AUTO 0.74 K/mm3 (0.84-5.20); LYMPHOCYTES PERCENT AUTO 11 % (21-46); MONOCYTES ABSOLUTE AUTO 0.48 K/mm3 (0.16-1.47); MONOCYTES PERCENT AUTO 7 % (4-13); Mean Corpuscular HGB 30.5 pg (26.0-34.0); Mean Corpuscular HGB Conc 32.3 g/dL (31.5-36.5); Mean Corpuscular Volume 95 fL (80-100); Mean Platelet Volume 9.4 fL (9.1-12.4); NEUTROPHILS ABSOLUTE AUTO 5.15 K/mm3 (1.96-9.15); NEUTROPHILS PERCENT AUTO 78 % (41-73); Platelet Count 202 K/mm3 (150-400); RDW Coefficient Variation 15.4 % (11.7-14.2); RDW Standard Deviation 51.9 fL (35.1-46.3)
[2022-07-13 17:10] LABS: Albumin, Blood 3.1 g/dL (3.4-5.0); Albumin/Globulin Ratio 0.8 (0.8-1.8); Bilirubin, Total 0.2 mg/dL (0.1-1.0); Bun/Creatinine Ratio 7.7 (12.0-20.0); Calcium, Blood 8.8 mg/dL (8.5-10.1); Creatinine, Blood 2.84 mg/dL (0.40-1.00); Potassium, Blood 4.4 mmol/L (3.5-5.5); Total Protein, Blood 7.1 g/dL (6.4-8.2)
[2022-07-13 17:26] LABS: Red Blood Cells, Urine 0-2 /hpf (0-2); Squamous Epithelial Cells Few /hpf (Few); White Blood Cells, Urine 0-2 /hpf (0-5)
[2022-07-13 17:27] LABS: Bacteria Few /hpf
[2022-07-13] MEDS ORDERED: LOPE2C PO (18:55)
[2022-07-13 19:13] LABS: International Normalized Ratio 0.98; Prothrombin Time Results 10.3 Sec (9.7-11.5)
[2022-07-13] MEDS ORDERED: MIRCERA SC (19:15)
[2022-07-13] MEDS ORDERED: VENOFER100 MG/5 M IV (19:15)
[2022-07-13] MEDS ORDERED: ATOR40TA PO (19:17)
[2022-07-13] MEDS ORDERED: TORSE20 PO (19:20)
[2022-07-13] MEDS ORDERED: SERT50 PO (19:21)
[2022-07-13 21:15] VITALS: BP 144/55
[2022-07-13 22:31] VITALS: BP 139/61
[2022-07-13 23:07] VITALS: BP 134/39
--- NOTE | 2022-07-13 23:30 | NUR ---
ADMIT NOTE HANDOFF REPORT RECEIVED FROM PERINATAL EDUCATOR HILL. PT ARRIVED TO FLOOR WITH 1ST UNIT OF BLOOD TRANSFUSING. PERSONAL BELONGINGS WITH PT. CALL HAS BEEN PLACED TO PT'S HOME FACILITY FOR A PROPER LIST OF HOME MEDS PT HAS AMS. TELEMETRY MONITORING IS IN PLACE. 1ST UNIT OF BLOOD COMPLETED BY 2300 HRS (THAT UNIT BEGAN TRANSFUSING IN ER AT 1910 HRS - SEE HARDCOPY CHART). 2ND UNIT INFUSING CURRENTLY, NO ADVERSE S/SX OR REACTIONS NOTED. PT IS ON A CLEAR LIQUID DIET. CALL BUTTON WITHIN REACH. PT PROVIDED WITH BROTH AND JELLO SHE REQUESTED.
[2022-07-13 23:36] VITALS: BP 144/57
[2022-07-14] VITALS (22 sets, daily range): BP systolic 111–190; BP diastolic 43–94
[2022-07-14 03:33] LABS: BASOPHILS ABSOLUTE AUTO 0.05 K/mm3 (0.00-0.23); BASOPHILS PERCENT AUTO 1 % (0-2); EOSINOPHILS ABSOLUTE AUTO 0.33 K/mm3 (0.00-0.68); EOSINOPHILS PERCENT AUTO 4 % (0-6); Hematocrit 23.6 % (33.0-51.0); Hemoglobin 8.4 g/dL (11.5-16.0); IMMATURE GRAN ABSOLUTE AUTO 0.12 K/mm3 (0.00-0.10); IMMATURE GRAN PERCENT AUTO 2 % (0-1); LYMPHOCYTES PERCENT AUTO 18 % (21-46); MONOCYTES ABSOLUTE AUTO 0.55 K/mm3 (0.16-1.47); MONOCYTES PERCENT AUTO 7 % (4-13); Mean Corpuscular HGB 30.8 pg (26.0-34.0); Mean Corpuscular HGB Conc 35.6 g/dL (31.5-36.5); NEUTROPHILS ABSOLUTE AUTO 5.31 K/mm3 (1.96-9.15); NEUTROPHILS PERCENT AUTO 69 % (41-73); NRBC ABSOLUTE 0.03 K/mm3 (0.00-0.02); NRBC Auto 0.4 /100 WBC (0.0-0.2); RDW Coefficient Variation 19.9 % (11.7-14.2); RDW Standard Deviation 60.1 fL (35.1-46.3); Red Blood Cell Count 2.73 M/mm3 (3.80-5.20); White Blood Cell Count 7.76 K/mm3 (4.00-11.30)
[2022-07-14 03:36] LABS: Albumin, Blood 2.9 g/dL (3.4-5.0); Anion Gap 3 mmol/L (6-16); Blood Urea Nitrogen 33 mg/dL (8-24); Bun/Creatinine Ratio 8.6 (12.0-20.0); CO2, Blood 28 mmol/L (21-32); Calcium, Blood 7.9 mg/dL (8.5-10.1); Chloride, Blood 102 mmol/L (98-108); Creatinine, Blood 3.83 mg/dL (0.40-1.00); Glomerular Filtration Rate 12 (60-); Glucose, Blood 158 mg/dL (70-99); Magnesium, Blood 2.1 mg/dL (1.6-2.4); Phosphorus, Blood 5.3 mg/dL (2.5-4.9); Potassium, Blood 5.9 mmol/L (3.5-5.5); Sodium, Blood 133 mmol/L (136-145)
[2022-07-14 04:07] LABS: Mean Corpuscular Volume 86 fL (80-100); Mean Platelet Volume 10.5 fL (9.1-12.4)
[2022-07-14 04:14] LABS: Platelet Count 274 K/mm3 (150-400)
--- NOTE | 2022-07-14 04:22 | NUR ---
SHIFT SUMMARY ADMITTED FOR GI BLEED. FULL CODE. PLAN IS FOR EGD. GI CONSULT IS DR. SAGASTUME. 2 UNITS OF PRBC'S GIVEN. HGB HAS RISEN FROM 6.1 TO 8.4. PANTOPRAZOLE IV IS INFUSING. ON CLEAR LIQUID DIET. NPO @ 12 NOON TODAY, ICE & WATER IS OKAY. SHE HAS AMS, ANXIETY NOTED. DIALYSIS PATIENT, DIALYSIS IS PLANNED FOR TODAY. FISTULA IN LEFT ARM. ACHS CBG'S. TELEMETRY: NSR @ 71 BPM.
[2022-07-14 08:11] LABS: Percent Saturation 77.1 % (15.0-50.0)
--- NOTE | 2022-07-14 17:26 | NUR ---
RIGHT AC IV DRESSING CHANGED IN DSD.
--- NOTE | 2022-07-14 17:53 | NUR ---
PATIENT C/O HER HEELS ARE "RAW" FROM RLS & PARKINSON'S. MEPILEX BORDER HEEL APPLIED BILATERALLY; PT VERBALIZES EXCITEMENT & GRATITUDE. HEELS ASSESSED, DRY SCANT AMOUNT OF REDNESS, NO ABRASION NOTED.
--- NOTE | 2022-07-14 18:24 | NUR ---
07/14/22 1824 Nixon Moise History, Chart, Medications and Allergies reviewed before start of procedure. MONITOR INTACT WITH CONTINUOUS PULSE OXIMETRY, CONTINUOUS END TITAL CO2, AND INTERMITTENT BLOOD PRESSURE. 3-LEAD EKG REVIEWED WITH PHYSICIAN PRIOR TO START OF PROCEDURE. O2 VIA POM INTACT THROUGHOUT SEDATION/PROCEDURE. Bite Block Placed. LIDOCAINE NEBULIZER DONE IN PRE OP PER DR SANDOVAL'S ORDERS.
--- NOTE | 2022-07-14 19:34 | NUR ---
1854 PT RETURNED TO ROOM FROM SCOPE. PT AWAKE AND TALKING. VSS. DR BENJAMIN EAT TONITE IF PASSES BEDSIDE SWALLOW. DONE. PASSED. ATE A JELLO ALSO. TRAY ORDERED.
--- NOTE | 2022-07-14 19:50 | NUR ---
PT BACK FROM EGD TONLORI AT 1855. GAVE REPORT TO NYDIA GRADY. VSS. SHE TALKING PLEASANT COOP. ROLLED OVER FROM GURNEY TO BED EASILY. DID GET DIALYSIS TODAY. STATES OKAY TO EAT RENAL DIET TONITE. NO BLEEDING NOTED ON SCOPE PER DAY JET DYEING MACHINE TENDER. STOPPED PROTONIX DRIP. NO NEW CONCERNS NOTED TODAY. BED IN LOW POSITION, CALL LITE IN REACH, CALLS APPORP
[2022-07-14] MEDS ORDERED: Rena-Vite Tabl0.8 MG PO (23:17)
[2022-07-14] MEDS ORDERED: METOPROLOL TART25 MG PO (23:17)
[2022-07-15] VITALS (16 sets, daily range): BP systolic 96–129; BP diastolic 28–73
[2022-07-15 06:10] LABS: Hemoglobin 8.2 g/dL (11.5-16.0)
--- NOTE | 2022-07-15 06:20 | NUR ---
SUMMARY: PATIENT AOX4 OVERNIGHT. POST OP VITALS TAKEN. PATIENT BP WAS RUNNING SOFT BUT STABLE OVERNIGHT. FREQUENTLY REASSESSED BP UNTIL WNL. PATIENT HAD AN UPPER GI SCOPE YESTERDAY. ORAL PROTONIX GIVEN THIS MORNING. PATIENT TOLERATED RENAL DIET WELL AND WAS ABLE TO EAT SOLIDS BEFORE BED. NO URINE OR STOOL OVERNIGHT. PATIENT PLEASANT AND COMPLIANT WITH ALL CARE.
[2022-07-15 06:30] LABS: Albumin, Blood 2.7 g/dL (3.4-5.0); Anion Gap 5 mmol/L (6-16); Blood Urea Nitrogen 34 mg/dL (8-24); Bun/Creatinine Ratio 7.8 (12.0-20.0); CO2, Blood 31 mmol/L (21-32); Chloride, Blood 99 mmol/L (98-108); Creatinine, Blood 4.36 mg/dL (0.40-1.00); Glomerular Filtration Rate 10 (60-); Glucose, Blood 172 mg/dL (70-99); Magnesium, Blood 2.1 mg/dL (1.6-2.4); Phosphorus, Blood 7.9 mg/dL (2.5-4.9); Potassium, Blood 5.6 mmol/L (3.5-5.5); Sodium, Blood 135 mmol/L (136-145)
[2022-07-15] MEDS ORDERED: MERIBIN5 MG PO (10:49)
[2022-07-15] MEDS ORDERED: BISA10S PR (10:57)
[2022-07-15] MEDS ORDERED: Calcium Acetat667 MG PO (10:58)
[2022-07-15] MEDS ORDERED: ARNUITY ELLIP100 MCG INH (11:03)
[2022-07-15] MEDS ORDERED: HYDRA50 PO (11:13)
[2022-07-15] MEDS ORDERED: HUMULIN N100 UNIT/6 SC (11:14)
[2022-07-15] MEDS ORDERED: ALUM-MAG HYDRO360 M1 PO (11:15)
[2022-07-15] MEDS ORDERED: FAMO20 PO (11:16)
[2022-07-15] MEDS ORDERED: CYCLOBENZAPRINE5 MG PO (11:17)
[2022-07-15] MEDS ORDERED: COMBIVENT RESPIM4 G1 INH (11:18)
[2022-07-15] MEDS ORDERED: LOPERAMIDE1 MG/7.10 PO (11:22)
[2022-07-15] MEDS ORDERED: MILK OF MAG PO (11:28)
[2022-07-15] MEDS ORDERED: Norco 5-325 Ta1 EACH PO (11:35)
[2022-07-15] MEDS ORDERED: NOVOLOG FL100 UNIT/3 SC (11:37)
[2022-07-15] MEDS ORDERED: PANT40 PO (11:38)
[2022-07-15] MEDS ORDERED: OXYC5 PO (11:38)
[2022-07-15] MEDS ORDERED: ROPI1 PO (11:39)
[2022-07-15] MEDS ORDERED: TRAZ50 PO (11:40)
[2022-07-15] MEDS ORDERED: OCUFLOX511 RIGHTEYE (11:42)
--- NOTE | 2022-07-15 19:59 | NUR ---
DISCHARGE SUMMARY PTN HAD DIALYSIS AT 0900. TELEMETRY SINUS RYTHYM WITH BBB, HR 75. PTN D/OC BACK TO [facility] VIA [facility] AT 1800, ESCORTED VIA WC TO [facility] BY SHAUNA Watkins CNA. ALL PAPERWORK REVIEWED PRIOR TO D/C AND COPY WITH PTN.
== END 2022-07-15 18:31 | disposition home or self-care (01) | DRG 377 ==
LOC: ER 14:46 → MEDS 18:02 → ENPENDDIS 07-15 10:21 → MEDS 07-15 18:31
PROVIDERS: Emergency Medicine; Internal Medicine Gastroenterology; Student in an Organized Health Care Education/Training Program; ADMIT Family Medicine
PROC: 0DJ08ZZ Inspection of Upper Intestinal Tract, Via Natural or Artificial Opening Endoscopic (ICD-10-PCS; 2022-07-14)
PROC: 30233N1 Transfusion of Nonautologous Red Blood Cells into Peripheral Vein, Percutaneous Approach (ICD-10-PCS; principal; 2022-07-14 14:30)
DX: K92.1 Melena (principal); N18.6 End stage renal disease; F11.20 Opioid dependence, uncomplicated; E87.1 Hypo-osmolality and hyponatremia; D62 Acute posthemorrhagic anemia; E87.5 Hyperkalemia; K21.9 Gastro-esophageal reflux disease without esophagitis; E55.9 Vitamin D deficiency, unspecified; I48.91 Unspecified atrial fibrillation; I10 Essential (primary) hypertension; D63.1 Anemia in chronic kidney disease; E11.22 Type 2 diabetes mellitus with diabetic chronic kidney disease; E66.9 Obesity, unspecified; E78.5 Hyperlipidemia, unspecified; J44.9 Chronic obstructive pulmonary disease, unspecified; G20 Parkinson's disease; G25.81 Restless legs syndrome; E83.39 Other disorders of phosphorus metabolism; G89.29 Other chronic pain; F41.9 Anxiety disorder, unspecified; R51.9 Headache, unspecified; F17.210 Nicotine dependence, cigarettes, uncomplicated; Z68.29 Body mass index [BMI] 29.0-29.9, adult; Z86.73 Personal history of transient ischemic attack (TIA), and cerebral infarction without residual deficits; Z99.2 Dependence on renal dialysis; Z86.16 Personal history of COVID-19; Z90.49 Acquired absence of other specified parts of digestive tract; Z98.890 Other specified postprocedural states; Z88.8 Allergy status to other drugs, medicaments and biological substances; Z79.4 Long term (current) use of insulin; Z79.899 Other long term (current) drug therapy
CPT/HCPCS: 36415; 36430; 51701; 80053; 80069; 81001; 82272; 82607; 82728; 82746; 82947; 83540; 83550; 83735; 84484; 85014; 85018; 85025; 85610; 85730; 86850; 86900; 86901; 86923; 93005; 93010; 94640; 94664; 94760; 96374-59; 96375-59; 96376; 99285-25; A9270; C9113; G0378; J0881; J1100; J2001; J2250; J2405; J2704; J2765; J7030; P9016

== ENCOUNTER 2022-07-22 15:17 | Emergency (ER) | payer MEDICARE ==
[~2022-07-22] VITALS: Ht 152.4 cm; Wt 76.0 kg
[~2022-07-22 15:17] MED LIST changes: +ALUM-MAG HYDRO360 M1 PO; +ATOR40TA PO; +BISA10S PR; +CYCLOBENZAPRINE5 MG PO; +HUMULIN N100 UNIT/6 SC; +LOPE2C PO; +LOPERAMIDE1 MG/7.10 PO; +METOPROLOL TART25 MG PO; +MILK OF MAG PO; +MIRCERA SC; +NOVOLOG FL100 UNIT/3 SC; +Norco 5-325 Ta1 EACH PO; +OCUFLOX511 RIGHTEYE; +ROPI1 PO; +Rena-Vite Tabl0.8 MG PO; +VENOFER100 MG/5 M IV
[2022-07-22 15:43] LABS: BASOPHILS ABSOLUTE AUTO 0.02 K/mm3 (0.00-0.23); BASOPHILS PERCENT AUTO 0 % (0-2); EOSINOPHILS ABSOLUTE AUTO 0.32 K/mm3 (0.00-0.68); EOSINOPHILS PERCENT AUTO 6 % (0-6); Hematocrit 26.5 % (33.0-51.0); Hemoglobin 8.7 g/dL (11.5-16.0); IMMATURE GRAN ABSOLUTE AUTO 0.02 K/mm3 (0.00-0.10); IMMATURE GRAN PERCENT AUTO 0 % (0-1); LYMPHOCYTES ABSOLUTE AUTO 0.99 K/mm3 (0.84-5.20); LYMPHOCYTES PERCENT AUTO 17 % (21-46); MONOCYTES ABSOLUTE AUTO 0.43 K/mm3 (0.16-1.47); MONOCYTES PERCENT AUTO 7 % (4-13); Mean Corpuscular HGB 29.3 pg (26.0-34.0); Mean Corpuscular HGB Conc 32.8 g/dL (31.5-36.5); Mean Corpuscular Volume 89 fL (80-100); Mean Platelet Volume 9.1 fL (9.1-12.4); NEUTROPHILS ABSOLUTE AUTO 4.09 K/mm3 (1.96-9.15); NEUTROPHILS PERCENT AUTO 70 % (41-73); Platelet Count 196 K/mm3 (150-400); RDW Coefficient Variation 16.7 % (11.7-14.2); RDW Standard Deviation 54.4 fL (35.1-46.3); Red Blood Cell Count 2.97 M/mm3 (3.80-5.20); White Blood Cell Count 5.87 K/mm3 (4.00-11.30)
[2022-07-22 16:08] LABS: Albumin, Blood 2.9 g/dL (3.4-5.0); Albumin/Globulin Ratio 0.8 (0.8-1.8); Bilirubin, Total 0.3 mg/dL (0.1-1.0); Calcium, Blood 8.1 mg/dL (8.5-10.1); Creatinine, Blood 2.25 mg/dL (0.40-1.00); Globulin, Blood 3.6 g/dL (2.2-4.0); Potassium, Blood 3.7 mmol/L (3.5-5.5); Total Protein, Blood 6.5 g/dL (6.4-8.2)
[2022-07-22 16:15] VITALS: BP 144/57
== END 2022-07-22 17:34 | disposition home or self-care (01) ==
LOC: ER 15:17
PROVIDERS: Emergency Medicine
DX: K92.1 Melena (principal); I12.0 Hypertensive chronic kidney disease with stage 5 chronic kidney disease or end stage renal disease; E11.22 Type 2 diabetes mellitus with diabetic chronic kidney disease; N18.6 End stage renal disease; F17.210 Nicotine dependence, cigarettes, uncomplicated; Z99.2 Dependence on renal dialysis; Z88.6 Allergy status to analgesic agent; Z88.8 Allergy status to other drugs, medicaments and biological substances; Z88.7 Allergy status to serum and vaccine; Z79.4 Long term (current) use of insulin; Z79.899 Other long term (current) drug therapy
CPT/HCPCS: 80053; 82272; 85025; 99285

== ENCOUNTER 2022-08-08 13:41 | Inpatient (IN) | payer MEDICARE ==
[~2022-08-08] VITALS: Ht 152.4 cm; Wt 77.8 kg
[2022-08-08 14:31] LABS: BASOPHILS ABSOLUTE AUTO 0.03 K/mm3 (0.00-0.23); BASOPHILS PERCENT AUTO 0 % (0-2); EOSINOPHILS ABSOLUTE AUTO 0.14 K/mm3 (0.00-0.68); EOSINOPHILS PERCENT AUTO 2 % (0-6); IMMATURE GRAN ABSOLUTE AUTO 0.04 K/mm3 (0.00-0.10); IMMATURE GRAN PERCENT AUTO 1 % (0-1); LYMPHOCYTES ABSOLUTE AUTO 0.82 K/mm3 (0.84-5.20); LYMPHOCYTES PERCENT AUTO 12 % (21-46); MONOCYTES ABSOLUTE AUTO 0.29 K/mm3 (0.16-1.47); MONOCYTES PERCENT AUTO 4 % (4-13); Mean Corpuscular HGB 29.6 pg (26.0-34.0); Mean Corpuscular HGB Conc 32.5 g/dL (31.5-36.5); Mean Corpuscular Volume 91 fL (80-100); Mean Platelet Volume 9.6 fL (9.1-12.4); NEUTROPHILS ABSOLUTE AUTO 5.38 K/mm3 (1.96-9.15); NEUTROPHILS PERCENT AUTO 80 % (41-73); Platelet Count 198 K/mm3 (150-400); RDW Coefficient Variation 16.6 % (11.7-14.2); RDW Standard Deviation 55.3 fL (35.1-46.3); Red Blood Cell Count 1.79 M/mm3 (3.80-5.20)
[2022-08-08 14:41] LABS: Albumin, Blood 2.9 g/dL (3.4-5.0); Albumin/Globulin Ratio 0.9 (0.8-1.8); Bilirubin, Total 0.3 mg/dL (0.1-1.0); Calcium, Blood 8.3 mg/dL (8.5-10.1); Creatinine, Blood 3.64 mg/dL (0.40-1.00); Globulin, Blood 3.4 g/dL (2.2-4.0); Magnesium, Blood 2.3 mg/dL (1.6-2.4); Potassium, Blood 4.1 mmol/L (3.5-5.5); Total Protein, Blood 6.3 g/dL (6.4-8.2)
[2022-08-08 14:43] LABS: Hematocrit 16.3 % (33.0-51.0); Hemoglobin 5.3 g/dL (11.5-16.0)
[2022-08-08 17:39] VITALS: BP 126/69
[2022-08-08 19:28] VITALS: BP 135/51
[2022-08-08 20:35] VITALS: BP 123/94
[2022-08-08 22:38] VITALS: BP 134/54
[2022-08-08 23:26] LABS: Hematocrit 21.2 % (33.0-51.0); Hemoglobin 7.1 g/dL (11.5-16.0)
[2022-08-09] VITALS (25 sets, daily range): BP systolic 130–195; BP diastolic 40–84
[2022-08-09 03:39] LABS: BASOPHILS ABSOLUTE AUTO 0.05 K/mm3 (0.00-0.23); BASOPHILS PERCENT AUTO 1 % (0-2); EOSINOPHILS ABSOLUTE AUTO 0.17 K/mm3 (0.00-0.68); EOSINOPHILS PERCENT AUTO 3 % (0-6); Hematocrit 20.3 % (33.0-51.0); Hemoglobin 6.8 g/dL (11.5-16.0); IMMATURE GRAN ABSOLUTE AUTO 0.02 K/mm3 (0.00-0.10); IMMATURE GRAN PERCENT AUTO 0 % (0-1); LYMPHOCYTES ABSOLUTE AUTO 1.13 K/mm3 (0.84-5.20); LYMPHOCYTES PERCENT AUTO 20 % (21-46); MONOCYTES ABSOLUTE AUTO 0.52 K/mm3 (0.16-1.47); MONOCYTES PERCENT AUTO 9 % (4-13); Mean Corpuscular HGB 29.1 pg (26.0-34.0); Mean Corpuscular HGB Conc 33.5 g/dL (31.5-36.5); Mean Corpuscular Volume 87 fL (80-100); Mean Platelet Volume 9.4 fL (9.1-12.4); NEUTROPHILS ABSOLUTE AUTO 3.83 K/mm3 (1.96-9.15); NEUTROPHILS PERCENT AUTO 67 % (41-73); Platelet Count 157 K/mm3 (150-400); Red Blood Cell Count 2.34 M/mm3 (3.80-5.20); White Blood Cell Count 5.72 K/mm3 (4.00-11.30)
[2022-08-09 04:11] LABS: Magnesium, Blood 2.3 mg/dL (1.6-2.4)
[2022-08-09 04:29] LABS: Albumin, Blood 2.5 g/dL (3.4-5.0); Anion Gap 8 mmol/L (6-16); Blood Urea Nitrogen 59 mg/dL (8-24); CO2, Blood 30 mmol/L (21-32); Calcium, Blood 7.4 mg/dL (8.5-10.1); Chloride, Blood 100 mmol/L (98-108); Creatinine, Blood 5.37 mg/dL (0.40-1.00); Glomerular Filtration Rate 8 (60-); Glucose, Blood 207 mg/dL (70-99); Phosphorus, Blood 8.2 mg/dL (2.5-4.9); Potassium, Blood 4.3 mmol/L (3.5-5.5); Sodium, Blood 138 mmol/L (136-145)
--- NOTE | 2022-08-09 06:27 | NUR ---
SHIFT SUMMARY A/OX3, 2P MAX ASSIST FOR TRANSFERS. SPO2 >92% ON BASELINE 2L NC. TELE SR 70S-80S, DENIES CHEST PAIN PRESSURE. HGB 6.8 THIS AM, 1U PRBC CURRENTLY TRANSFUSING. FISTULA TO LFA. INCONT, ATTENDS IN PLACE. VSS, NO ACUTE CHANGES AT THIS TIME. BED IN LOWEST POSITION WITH CALL LIGHT IN REACH. WILL CONTINUE TO MONITOR AND REPORT TO ONCOMING RN.
[2022-08-09 10:03] LABS: Hematocrit 25.3 % (33.0-51.0); Hemoglobin 8.8 g/dL (11.5-16.0)
--- NOTE | 2022-08-09 16:40 | NUR ---
FLUSHED IV SITE KORIN WITH 10NS/PATENT.
--- NOTE | 2022-08-09 17:13 | NUR ---
08/09/22 1713 Tim Moise History, Chart, Medications and Allergies reviewed before start of procedure.MONITOR INTACT WITH CONTINUOUS PULSE OXIMETRY, CONTINUOUS END TITAL CO2, AND INTERMITTENT BLOOD PRESSURE.3-LEAD EKG REVIEWED WITH PHYSICIAN PRIOR TO START OF PROCEDURE.O2 VIA POM INTACT THROUGHOUT SEDATION/PROCEDURE.See Anesthesia record.
--- NOTE | 2022-08-09 18:04 | NUR ---
SHIFT SUMMARY; ASSUMED CARE AT 0700. A/A/OX4, 2L 02 VIA VA. MOVES SELF ON BED NEEDED AND ROLLS FOR ATTENDS CHANGES. PURWICK IN PLACE, BEDBATH TODAY. SEVERAL DARK/BLACK LOOSE STOOLS DURING SHIFT. DIAYLSIS COMPLETE TODAY AND EGD. OK FOR CLEAR DIET TONIGHT AND PLAN FOR COLONOSCOPY TOMORROW. VSS, WILL CONTINUE TO MONITOR AND TREAT UNTIL CHANGE OF SHIFT.
--- NOTE | 2022-08-09 22:32 | NUR ---
PHYSICIAN COMMUNICATION CONTACTED HEAD CHOPPER RESIDENT, DR AYALA, TO NOTIFY HER THAT THE PATIENT IS HAVING RESTLESS LEGS AND WAS WONDERING IF THE PATIENT COULD BE STARTED ON HER HOME MEDICATION OF 1 MG REQUIP AT BEDTIME. DR AYALA SAID THIS WAS FINE. ALSO MENTIONED THAT THE PATIENT HAD BEEN MEDICATED FOR A HEADACHE ABOUT TWO HOURS AGO WITH TYLENOL WHICH WAS INEFFECTIVE. DR AYALA ORDERED A ONE TIME DOSE OF 50 MG SUMATRIPTAN THAT CAN BE REPEATED IN TWO HOURS IF THE HEADACHE IS STILL PRESENT.
[2022-08-10] VITALS (9 sets, daily range): BP systolic 132–187; BP diastolic 59–131
--- NOTE | 2022-08-10 00:34 | NUR ---
PHYSICIAN COMMUNICATION CONTACTED FAMILY PRACTITIONER RESIDENT, DR AYALA, TO NOTIFY HER THAT THE PATIENT HAS BEEN HYPERTENSIVE THIS EVENING WITH SYSTOLIC BP IN THE 170'S-180'S. REPORTED THAT THE PATIENT HAS NOT RECEIVED HER HOME MEDICATIONS SINCE BEING ADMITTED TO THE HOSPITAL. THESE MEDICATIONS ARE 50 MG HYDRALAZINE TID AND 25 MG METOPROLOL SUCCINATE DAILY. DR AYALA SAID TO GO AHEAD AND START THE PATIENT ON THESE MEDICATIONS.
[2022-08-10 04:32] LABS: Hematocrit 22.4 % (33.0-51.0); Hemoglobin 7.5 g/dL (11.5-16.0)
[2022-08-10 04:52] LABS: Magnesium, Blood 1.8 mg/dL (1.6-2.4)
[2022-08-10 05:12] LABS: Albumin, Blood 2.6 g/dL (3.4-5.0); Anion Gap 8 mmol/L (6-16); Blood Urea Nitrogen 44 mg/dL (8-24); Bun/Creatinine Ratio 10.6 (12.0-20.0); CO2, Blood 30 mmol/L (21-32); Calcium, Blood 8.2 mg/dL (8.5-10.1); Chloride, Blood 100 mmol/L (98-108); Creatinine, Blood 4.14 mg/dL (0.40-1.00); Glomerular Filtration Rate 11 (60-); Glucose, Blood 275 mg/dL (70-99); Phosphorus, Blood 4.6 mg/dL (2.5-4.9); Potassium, Blood 4.2 mmol/L (3.5-5.5); Sodium, Blood 138 mmol/L (136-145)
--- NOTE | 2022-08-10 06:01 | NUR ---
SHIFT SUMMARY PATIENT ALERT AND ORIENTED X4. PATIENT STARTED ON HOME MEDICATIONS FOR HYPERTENTION AND RESTLESS LEGS AFTER REVIEWING PATIENT'S HOME MEDICATION LIST. ALSO MEDICATED PER EMAR FOR HEADACHE. PATIENT IS ON HER BASELINE DOSE OF OXYGEN AT 2 LITERS, SPO2 >90%. BLOOD PRESSURE HAS DECREASED SINCE BEING STARTED ON HER HOME ANTIHYPERTENSIVES, HEART SINUS RHYTHM IN THE 80'S. PATIENT DENIES CHEST PAIN. PATIENT CONTINUES TO HAVE BLACK, TARRY BOWEL MOVEMENTS, CURRENTLY DRINKING GO LYTELY IN PREPARATION FOR COLONOSCOPY TODAY. WILL CONTINUE TO MONITOR. CALL LIGHT WITHIN REACH.
--- NOTE | 2022-08-10 10:36 | NUR ---
EDUCATION UPDATE EDUCATING PT ON NEED FOR BOWEL PREP. BY NOT VERY COOPERATIVE WITH DRINKING BOWLE PREP. ENCOURAGED PT TO SIT ON COMMODE DUE TO FREQUENT INCONTIONENT LIQUID BM'S. PT INITIALLY REFUSED, EVENTUALLY PT AGREED TO SIT ON COMMODE FOR BOWLE PREP.
--- NOTE | 2022-08-10 12:03 | NUR ---
UPDATE PT FINISHED GO LYTELY AT 1150. STOOL STARTING TO CLEAR UP, SOME BROWNESS STILL PRESENT.
--- NOTE | 2022-08-10 17:25 | NUR ---
PT LEFT PCU FOR PROCEDURE AT 1720 VIA GURNEY. PT ABLE TO STAND AND PIVOT FROM HOSPITAL BED TO GURNEY WITH MODERATE ASSISTANCE, TOLERATED WELL. PT ON 2L NC DURING TRANSFER. CHART WITH OR NURSE DURING TRANSFER.
--- NOTE | 2022-08-10 17:38 | NUR ---
THE PATIENT WAS BROUGHT TO DAY SURGERY FOR HER PROCEDURE
--- NOTE | 2022-08-10 17:46 | NUR ---
SHIFT SUMMARY. PT A/OX4. PT AT BEGINNING OF SHIFT NONCOMPLIANT WITH BOWLE PREP AND SITTING ON BSC. PT NEEDED CONSTANT EDUCATION AND REMINDERS IN ORDER TO FINISH BOWEL PREP. PT ABLE TO STAND AND PIVOT TO BSC FROM HER BED, MODERATE NNEKA AND FWW. PT INCONTINENT OF URINE AND BOWELS. PT BP'S ELEVATED THROUGHOTU SHIFT. NO REPORT OF CHEST PAIN/PRESSURE THROUGHOTU SHIFT. NO REPORT OF SOB/DYSPNEA THROUGHOUT SHIFT. PT REMAINED ON 2L NC WHICH IS HER BASELINE, SATS IN THE 90'S. PT HEADED DOWN FOR PROCEDURE TOWARDS END OF SHIFT, AWAITING PROCEDURE RESULTS. PT RUNNING SLIGHT TEMP, SEE VITALS, TREATED PER EMAR.
--- NOTE | 2022-08-10 18:11 | NUR ---
08/10/22 181 Tim Moise History, Chart, Medications and Allergies reviewed before start of procedure.MONITOR INTACT WITH CONTINUOUS PULSE OXIMETRY, CONTINUOUS END TITAL CO2, AND INTERMITTENT BLOOD PRESSURE.3-LEAD EKG REVIEWED WITH PHYSICIAN PRIOR TO START OF PROCEDURE.O2 VIA POM INTACT THROUGHOUT SEDATION/PROCEDURE.See Anesthesia record.
--- NOTE | 2022-08-10 18:40 | NUR ---
REPORT RECIEVED FROM OR NURSE AT 1838. AWAITING ORDERS FROM
--- NOTE | 2022-08-10 18:55 | NUR ---
UPDATE PT ARRIVED FROM PROCEDURE AT 1950 VIA GURNEY AN ON 2L NC. PT ABLE TO TRANSFER FROM [place] TO PCU BED WITH MODERATE ASSISTANCE, TOLRATED WELL.
[2022-08-11] VITALS (23 sets, daily range): BP systolic 110–181; BP diastolic 42–87
[2022-08-11 04:42] LABS: Hematocrit 20.8 % (33.0-51.0); Hemoglobin 6.8 g/dL (11.5-16.0)
[2022-08-11 05:04] LABS: Albumin, Blood 2.4 g/dL (3.4-5.0); Anion Gap 9 mmol/L (6-16); Blood Urea Nitrogen 51 mg/dL (8-24); Bun/Creatinine Ratio 8.9 (12.0-20.0); CO2, Blood 28 mmol/L (21-32); Chloride, Blood 103 mmol/L (98-108); Creatinine, Blood 5.71 mg/dL (0.40-1.00); Glomerular Filtration Rate 7 (60-); Glucose, Blood 221 mg/dL (70-99); Magnesium, Blood 1.9 mg/dL (1.6-2.4); Phosphorus, Blood 5.5 mg/dL (2.5-4.9); Potassium, Blood 4.3 mmol/L (3.5-5.5); Sodium, Blood 140 mmol/L (136-145)
--- NOTE | 2022-08-11 05:38 | NUR ---
Assumed care of pt at 1900. A/Ox4, cooperative with care and calls appropriately. Patient was very tearful regarding diet status, diet was changed to AAT and patient states feeling much better. Maintains over 95% on RA. C/o headache and patient had slight fever of 99.9 temporal - both relieved with PRN tylenol. LS clear upper and dim at bases. SR 90's on tele, no CP/pressure. Fistula in L arm with thrill and bruit. No acute events overnight. Will report to dayshixavier GRADY.
--- NOTE | 2022-08-11 08:15 | NUR ---
CARE ASSUMPTION This RN assumed care at 0700. vital signs stable. spo2 >95% on 1L nc. tele sr 91. patient is alert and oriented x4. perrla. patient reports no chest pain/pressure, pain, or shortness of breath. see shift assessment for further detials. This RN took patient to dialysis at 0800. plan of care up to date.
--- NOTE | 2022-08-11 09:35 | NUR ---
CALL TO This Rn received a call from tele, that the patient had a 12 beat run of SVT. This RN went to see patient at dialysis, and no changes in patient condition. This RN called MD Edmond to inform , no new orders at this time.
--- NOTE | 2022-08-11 11:30 | NUR ---
RETURN FROM DIALYSIS Patient returned from [facility] approx 1130.
--- NOTE | 2022-08-11 12:12 | NUR ---
CALL TO This RN called MD Edmond to inform MD of call from tele, that patient has a 12 beat run of SVT. Patient still at dialysis, no changes. No new orders at this time.
--- NOTE | 2022-08-11 12:18 | NUR ---
CALL TO This RN received a call from tele of patient heart rate increasing to 135s and sustaining in the 120s. patient tele sinus tach. this RN called MD Edmond to inform MD of changes in heart rate. No new oders placed at this time.
--- NOTE | 2022-08-11 17:44 | NUR ---
SHIFT SUMMARY Patient neuro remains intact. vital signs stable. tele sinus tach 100-130s. patient heart rate tachs up with activity. patient uses call light appropriately. plan of care is up to date. call light within reach and bed in lowest position.
[2022-08-12 04:22] VITALS: BP 142/55
[2022-08-12 04:35] LABS: Hematocrit 30.8 % (33.0-51.0); Hemoglobin 10.3 g/dL (11.5-16.0)
[2022-08-12 04:51] LABS: Albumin, Blood 2.8 g/dL (3.4-5.0); Anion Gap 9 mmol/L (6-16); Blood Urea Nitrogen 44 mg/dL (8-24); Bun/Creatinine Ratio 9.9 (12.0-20.0); CO2, Blood 29 mmol/L (21-32); Calcium, Blood 8.7 mg/dL (8.5-10.1); Chloride, Blood 99 mmol/L (98-108); Creatinine, Blood 4.44 mg/dL (0.40-1.00); Glomerular Filtration Rate 10 (60-); Glucose, Blood 242 mg/dL (70-99); Phosphorus, Blood 4.8 mg/dL (2.5-4.9); Sodium, Blood 137 mmol/L (136-145)
--- NOTE | 2022-08-12 05:17 | NUR ---
SHIFT SUMMARY THIS RN ASSUMED CARE OF PATIENT AT 1900. NO ACUTE CHANGES OVERNIGHT. PATIENT IS ALERT AND ORIENTED FULLY AND ABLE TO MAKE NEEDS KNOWN. RA-2L VIA NC TO MAINTAIN SPO2 >92%. BP STABLE. SR ON MONITOR WITH HR 60-80'S. AFEBRILE. UP TO BEDSIDE COMMODE WITH MINIMAL ASSISTANCE. REPOSITIONING SELF IN BED INDEPENDENTLY. BED IN LOWEST POSITION AND CALL LIGHT WITHIN REACH. THIS RN WILL CONTINUE TO MONITOR UNTIL SHIFT CHANGE A T070.
[2022-08-12 08:22] VITALS: BP 149/80
[2022-08-12 13:20] VITALS: BP 131/76
[2022-08-12] MEDS ORDERED: Rena-Vite Tabl0.8 MG PO (14:03)
--- NOTE | 2022-08-12 15:18 | NUR ---
SHIFT SUMMARY/DISCHARGE This Rn assumed care at 0700. vital signs stable throughout this RN's shift. patient made medical without tele this morning. patient is alert and oriented x4. patient reports no pain, chest pain/pressure, or shortness of breath. see shift assessment for further detials. MD Maxwell and MD Edmond in to see patient. Plan is for patient to be discharged home today. patient went home with discharge information. this rn went over discharge education with the patient. patient verbalized understanding. patient left via wheelchair with all belongings and in no distress. patient left via taxi.
== END 2022-08-12 15:15 | DRG 377 ==
LOC: ER 13:41 → PCU 16:32
PROVIDERS: Internal Medicine Nephrology; Physician Assistant; ADMIT Student in an Organized Health Care Education/Training Program
PROC: 30233N1 Transfusion of Nonautologous Red Blood Cells into Peripheral Vein, Percutaneous Approach (ICD-10-PCS; principal; 2022-08-08)
PROC: 5A1D70Z Performance of Urinary Filtration, Intermittent, Less than 6 Hours Per Day (ICD-10-PCS; 2022-08-08)
PROC: 30233N1 Transfusion of Nonautologous Red Blood Cells into Peripheral Vein, Percutaneous Approach (ICD-10-PCS; 2022-08-08)
PROC: 0DJ08ZZ Inspection of Upper Intestinal Tract, Via Natural or Artificial Opening Endoscopic (ICD-10-PCS; 2022-08-09)
PROC: 0DJD8ZZ Inspection of Lower Intestinal Tract, Via Natural or Artificial Opening Endoscopic (ICD-10-PCS; 2022-08-10)
PROC: 5A1D70Z Performance of Urinary Filtration, Intermittent, Less than 6 Hours Per Day (ICD-10-PCS; 2022-08-10)
PROC: 5A1D70Z Performance of Urinary Filtration, Intermittent, Less than 6 Hours Per Day (ICD-10-PCS; 2022-08-12)
DX: K25.4 Chronic or unspecified gastric ulcer with hemorrhage (principal); N18.6 End stage renal disease; I12.0 Hypertensive chronic kidney disease with stage 5 chronic kidney disease or end stage renal disease; F11.20 Opioid dependence, uncomplicated; I47.1 Supraventricular tachycardia; D62 Acute posthemorrhagic anemia; K64.8 Other hemorrhoids; K44.9 Diaphragmatic hernia without obstruction or gangrene; F41.9 Anxiety disorder, unspecified; E66.9 Obesity, unspecified; E55.9 Vitamin D deficiency, unspecified; Z68.33 Body mass index [BMI] 33.0-33.9, adult; G25.81 Restless legs syndrome; K21.9 Gastro-esophageal reflux disease without esophagitis; E11.22 Type 2 diabetes mellitus with diabetic chronic kidney disease; E83.39 Other disorders of phosphorus metabolism; D63.1 Anemia in chronic kidney disease; I48.91 Unspecified atrial fibrillation; G89.29 Other chronic pain; F17.210 Nicotine dependence, cigarettes, uncomplicated; E78.5 Hyperlipidemia, unspecified; J44.9 Chronic obstructive pulmonary disease, unspecified; K63.5 Polyp of colon; G20 Parkinson's disease; E11.40 Type 2 diabetes mellitus with diabetic neuropathy, unspecified; E86.9 Volume depletion, unspecified; E87.70 Fluid overload, unspecified; E88.09 Other disorders of plasma-protein metabolism, not elsewhere classified; Z90.49 Acquired absence of other specified parts of digestive tract; Z98.890 Other specified postprocedural states; Z86.73 Personal history of transient ischemic attack (TIA), and cerebral infarction without residual deficits; Z99.81 Dependence on supplemental oxygen; Z86.16 Personal history of COVID-19; Z99.2 Dependence on renal dialysis; Z71.6 Tobacco abuse counseling; Z88.8 Allergy status to other drugs, medicaments and biological substances; Z79.4 Long term (current) use of insulin; Z79.899 Other long term (current) drug therapy
CPT/HCPCS: 36415; 36430; 80053; 80069; 82272; 82947; 83735; 84132; 85014; 85018; 85025; 86850; 86900; 86901; 86923; 93005; 93010; 94640; 94664; 94760; 96374; 99285-25; A9270; C1751; C9113; J0881; J2001; J2250; J2704; J7030; P9016

== ENCOUNTER 2022-09-14 10:28 | Emergency (ER) | payer MEDICARE ==
[~2022-09-14] VITALS: Ht 152.4 cm; Wt 77.0 kg
[~2022-09-14 10:28] MED LIST changes: +AURYXIA210 MG PO; +B COMPLEX FORM0.4 MG PO
[2022-09-14 11:15] LABS: BASOPHILS ABSOLUTE AUTO 0.04 K/mm3 (0.00-0.23); BASOPHILS PERCENT AUTO 1 % (0-2); EOSINOPHILS ABSOLUTE AUTO 0.25 K/mm3 (0.00-0.68); EOSINOPHILS PERCENT AUTO 3 % (0-6); Hematocrit 24.7 % (33.0-51.0); Hemoglobin 7.9 g/dL (11.5-16.0); IMMATURE GRAN ABSOLUTE AUTO 0.03 K/mm3 (0.00-0.10); IMMATURE GRAN PERCENT AUTO 0 % (0-1); LYMPHOCYTES ABSOLUTE AUTO 1.39 K/mm3 (0.84-5.20); LYMPHOCYTES PERCENT AUTO 17 % (21-46); MONOCYTES ABSOLUTE AUTO 0.63 K/mm3 (0.16-1.47); MONOCYTES PERCENT AUTO 8 % (4-13); Mean Corpuscular HGB 29.2 pg (26.0-34.0); Mean Corpuscular Volume 91 fL (80-100); Mean Platelet Volume 8.8 fL (9.1-12.4); NEUTROPHILS ABSOLUTE AUTO 5.83 K/mm3 (1.96-9.15); NEUTROPHILS PERCENT AUTO 71 % (41-73); Platelet Count 205 K/mm3 (150-400); RDW Coefficient Variation 16.8 % (11.7-14.2); RDW Standard Deviation 54.3 fL (35.1-46.3); Red Blood Cell Count 2.71 M/mm3 (3.80-5.20); White Blood Cell Count 8.17 K/mm3 (4.00-11.30)
[2022-09-14 11:36] LABS: Bun/Creatinine Ratio 8.9 (12.0-20.0); Calcium, Blood 8.3 mg/dL (8.5-10.1); Creatinine, Blood 6.66 mg/dL (0.40-1.00); Potassium, Blood 4.6 mmol/L (3.5-5.5)
[2022-09-14 12:17] VITALS: BP 151/60
== END 2022-09-14 12:52 | disposition home or self-care (01) ==
LOC: ER 10:28
PROVIDERS: Emergency Medicine
DX: G45.9 Transient cerebral ischemic attack, unspecified (principal); I12.0 Hypertensive chronic kidney disease with stage 5 chronic kidney disease or end stage renal disease; E11.22 Type 2 diabetes mellitus with diabetic chronic kidney disease; N18.6 End stage renal disease; J44.9 Chronic obstructive pulmonary disease, unspecified; K21.9 Gastro-esophageal reflux disease without esophagitis; E78.5 Hyperlipidemia, unspecified; Z99.2 Dependence on renal dialysis; Z88.6 Allergy status to analgesic agent; Z88.8 Allergy status to other drugs, medicaments and biological substances; Z88.7 Allergy status to serum and vaccine; Z91.048 Other nonmedicinal substance allergy status; Z79.4 Long term (current) use of insulin; Z79.899 Other long term (current) drug therapy
CPT/HCPCS: 70450; 80048; 85025; 99285-25

== ENCOUNTER 2022-09-16 15:43 | Emergency (ER) | payer MEDICARE ==
[~2022-09-16] VITALS: Ht 152.4 cm; Wt 77.1 kg
[2022-09-16 16:33] LABS: BASOPHILS ABSOLUTE AUTO 0.02 K/mm3 (0.00-0.23); BASOPHILS PERCENT AUTO 0 % (0-2); EOSINOPHILS ABSOLUTE AUTO 0.16 K/mm3 (0.00-0.68); EOSINOPHILS PERCENT AUTO 3 % (0-6); Hematocrit 20.1 % (33.0-51.0); Hemoglobin 6.6 g/dL (11.5-16.0); IMMATURE GRAN ABSOLUTE AUTO 0.03 K/mm3 (0.00-0.10); IMMATURE GRAN PERCENT AUTO 1 % (0-1); LYMPHOCYTES ABSOLUTE AUTO 0.84 K/mm3 (0.84-5.20); LYMPHOCYTES PERCENT AUTO 14 % (21-46); MONOCYTES ABSOLUTE AUTO 0.35 K/mm3 (0.16-1.47); MONOCYTES PERCENT AUTO 6 % (4-13); Mean Corpuscular HGB 29.2 pg (26.0-34.0); Mean Corpuscular HGB Conc 32.8 g/dL (31.5-36.5); Mean Corpuscular Volume 89 fL (80-100); Mean Platelet Volume 8.9 fL (9.1-12.4); NEUTROPHILS ABSOLUTE AUTO 4.77 K/mm3 (1.96-9.15); NEUTROPHILS PERCENT AUTO 77 % (41-73); Platelet Count 176 K/mm3 (150-400); RDW Coefficient Variation 16.5 % (11.7-14.2); RDW Standard Deviation 53.3 fL (35.1-46.3); Red Blood Cell Count 2.26 M/mm3 (3.80-5.20); White Blood Cell Count 6.17 K/mm3 (4.00-11.30)
[2022-09-16 16:46] LABS: Albumin, Blood 2.9 g/dL (3.4-5.0); Albumin/Globulin Ratio 0.8 (0.8-1.8); Bilirubin, Total 0.3 mg/dL (0.1-1.0); Bun/Creatinine Ratio 10.1 (12.0-20.0); Calcium, Blood 8.6 mg/dL (8.5-10.1); Creatinine, Blood 2.98 mg/dL (0.40-1.00); Globulin, Blood 3.6 g/dL (2.2-4.0); Potassium, Blood 3.8 mmol/L (3.5-5.5); Total Protein, Blood 6.5 g/dL (6.4-8.2)
[2022-09-16 20:15] VITALS: BP 137/45
== END 2022-09-16 21:11 | disposition home or self-care (01) ==
LOC: ER 15:43
PROVIDERS: Emergency Medicine
DX: K92.2 Gastrointestinal hemorrhage, unspecified (principal); D64.9 Anemia, unspecified; N18.6 End stage renal disease; Z88.8 Allergy status to other drugs, medicaments and biological substances; Z79.899 Other long term (current) drug therapy; Z79.4 Long term (current) use of insulin; F17.210 Nicotine dependence, cigarettes, uncomplicated; J44.9 Chronic obstructive pulmonary disease, unspecified; K21.9 Gastro-esophageal reflux disease without esophagitis; I12.0 Hypertensive chronic kidney disease with stage 5 chronic kidney disease or end stage renal disease; E11.22 Type 2 diabetes mellitus with diabetic chronic kidney disease; E78.5 Hyperlipidemia, unspecified
CPT/HCPCS: 36430; 71045; 80053; 85025; 86850; 86900; 86901; 86923; 93005; 93010; 96374; 99284-25; C9113; J7030; P9016

== ENCOUNTER 2022-09-19 09:15 | Inpatient (IN) | payer MEDICARE ==
[2022-09-19] VITALS (16 sets, daily range): BP systolic 136–181; BP diastolic 51–99
[~2022-09-19] VITALS: Ht 149.9 cm; Wt 82.8 kg
[2022-09-19] MEDS ORDERED: RENA VITE (10:22)
[2022-09-19] MEDS ORDERED: SERT50 PO (10:22)
[2022-09-19 11:03] LABS: BASOPHILS ABSOLUTE AUTO 0.02 K/mm3 (0.00-0.23); BASOPHILS PERCENT AUTO 0 % (0-2); EOSINOPHILS ABSOLUTE AUTO 0.21 K/mm3 (0.00-0.68); EOSINOPHILS PERCENT AUTO 3 % (0-6); IMMATURE GRAN ABSOLUTE AUTO 0.03 K/mm3 (0.00-0.10); IMMATURE GRAN PERCENT AUTO 0 % (0-1); LYMPHOCYTES ABSOLUTE AUTO 0.82 K/mm3 (0.84-5.20); LYMPHOCYTES PERCENT AUTO 12 % (21-46); MONOCYTES ABSOLUTE AUTO 0.42 K/mm3 (0.16-1.47); MONOCYTES PERCENT AUTO 6 % (4-13); Mean Corpuscular HGB 29.7 pg (26.0-34.0); Mean Corpuscular HGB Conc 32.2 g/dL (31.5-36.5); Mean Corpuscular Volume 92 fL (80-100); Mean Platelet Volume 9.3 fL (9.1-12.4); NEUTROPHILS ABSOLUTE AUTO 5.34 K/mm3 (1.96-9.15); NEUTROPHILS PERCENT AUTO 78 % (41-73); NRBC ABSOLUTE 0.02 K/mm3 (0.00-0.02); NRBC Auto 0.3 /100 WBC (0.0-0.2); Platelet Count 144 K/mm3 (150-400); RDW Coefficient Variation 15.9 % (11.7-14.2); RDW Standard Deviation 54.1 fL (35.1-46.3); Red Blood Cell Count 1.55 M/mm3 (3.80-5.20); White Blood Cell Count 6.84 K/mm3 (4.00-11.30)
[2022-09-19 11:08] LABS: Hematocrit 14.3 % (33.0-51.0); Hemoglobin 4.6 g/dL (11.5-16.0)
[2022-09-19 11:35] LABS: Alanine Aminotransfer (ALT/SGP <6 U/L (12-78); Albumin, Blood 2.5 g/dL (3.4-5.0); Albumin/Globulin Ratio 0.9 (0.8-1.8); Alk Phos 66 U/L (50-136); Anion Gap 10 mmol/L (6-16); Aspartate Aminotrans (AST/SGOT 12 U/L (12-37); Bilirubin, Total 0.2 mg/dL (0.1-1.0); Blood Urea Nitrogen 102 mg/dL (8-24); Bun/Creatinine Ratio 15.4 (12.0-20.0); CO2, Blood 21 mmol/L (21-32); Calcium, Blood 7.5 mg/dL (8.5-10.1); Chloride, Blood 110 mmol/L (98-108); Creatinine, Blood 6.64 mg/dL (0.40-1.00); Globulin, Blood 2.9 g/dL (2.2-4.0); Glomerular Filtration Rate 6 (60-); Glucose, Blood 235 mg/dL (70-99); Potassium, Blood 5.5 mmol/L (3.5-5.5); Sodium, Blood 141 mmol/L (136-145); Total Protein, Blood 5.4 g/dL (6.4-8.2)
[2022-09-19] MEDS ORDERED: LOKELMA10 GM PO (13:43)
--- NOTE | 2022-09-19 14:58 | NUR ---
ASSUMED CARE: PT ARRIVED FROM ED WITH BLOOD INFUSING. ON 3L O2 VIA NC. BLACK TARRY RESIDUE TO ATTENDS NOTED. PT NPO STATUS AT THIS TIME. CALL LIGHT IN REACH. NO FURTHER NEEDS OR CONCERNS AT THIS TIME. IGNITION RISK: UPON ROLLING PT SIDE TO SIDE IT WAS FOUND THAT PT HAD A PACK OF CIGARRETTES, A ROPING MACHINE TENDER AND A TIN WITH OLD, USED CIGARRETTES IN PLACE. ITEMS WERE LOCKED IN MED DRAWER WITH PT LABEL. PROPERTY AND CASUALTY INSURANCE AGENT MADE AWARE
[2022-09-19] MEDS ORDERED: B-COMPLEX WITH1 EACH PO (15:23)
[2022-09-19] MEDS ORDERED: HUMULIN N100 UNIT/6 SC (15:25)
[2022-09-19] MEDS ORDERED: NOVOLOG FL100 UNIT/3 SC (15:26)
--- NOTE | 2022-09-19 15:53 | NUR ---
CALL TO DIALYSIS NURSE TO DETERMINE PLANS FOR DIALYSIS SINCE PT MISSED TODAY AND SHE HAS 2 UNITS ORDERED. DIALYSIS NURSE ADVISED TO GIVE HER THE SECOND UNIT NOW AND THAT SHE WOULD LIKELY GET A RUN TOMORROW DUE TO HEMOGLOBIN AND HEMATOCRIT BEING TOO LOW CURRENTLY.
--- NOTE | 2022-09-19 16:15 | NUR ---
DR GUO CALLED AND ASKED FOR PT'S H AND H. TOLD DR GUO ABOUT HEMOGLOBIN BEFORE FIRST UNIT OF BLOOD AND STATED THAT NEXT CHECK WOULD BE AFTER SECOND UNIT. DR INSTRUCTED TO HOLD SECOND UNIT OF BLOOD UNTIL WE GET H/H RESULT
[2022-09-19 16:55] LABS: Hematocrit 16.6 % (33.0-51.0); Hemoglobin 5.3 g/dL (11.5-16.0)
--- NOTE | 2022-09-19 17:15 | NUR ---
CALL TO DR GUO WITH CRITICAL LABS. DR ASKED ABOUT PT'S BREATHING AND HE WAS INFORMED THAT PT WAS SOB, CANNOT LAY FLAT AND SHE SOUNDS COURSE T/O. DR GUO INSTRUCTED TO CALL DIALYSIS NURSE AND TO TELL HER TO GIVE 2 UNITS OF BLOOD DURING DIALYSIS FOR A TOTAL OF 3 UNITS ADMINSTERED. CALL TO JENISE WHO IS AWARE THAT PT HAS DIALYSIS ORDERS FOR THIS EVENING. DR LEE CAME TO BEDSIDE AND STATED CLEAR LIQUID DIET IS OK AND THAT PT WILL HAVE EGD TOMORROW AFTERNOON. DR URIOSTEGUI AWARE OF DRS' PLANS
--- NOTE | 2022-09-19 18:15 | NUR ---
SHIFT SUMMARY: PT ON 3L O2. LUNG SOUNDS ARE COARSE AND PT IS SOB ON EXERTION. REQUESTING PG FOR IV ACCESS SO SHE DOES NOT NEED REPEAT DRAWS. CHIEF DATA OFFICER AWARE. PLANS FOR DIALYSIS THIS EVENING AND UNITS OF BLOOD TO BE ADMINSITERED WITH THAT. PLAN FOR EGD TOMORROW DUE TO CONTINUED BLACK RESIDUE NOTED IN ATTENDS. NO FURTHER NEEDS AT THIS TIME.
--- NOTE | 2022-09-19 19:44 | NUR ---
NURSE NOTE TRANSPORTED TO DIALYSIS, ORDERED 2 UNITS OF PRBC TO BE GIVEN WITH DIALYSIS. ALERT AND ORIENTED. C/O SOB. O2 AT 3L/MIN PER NC. HOB ELEVATED. CALL LIGHT IN REACH. LAB CALLED WITH H/H RESULTS: HGB 5.5, HCT 17.4. CALL TO BE PLACED TO MD FOR NOTIFICATION.
[2022-09-19 19:48] LABS: Hematocrit 17.4 % (33.0-51.0); Hemoglobin 5.5 g/dL (11.5-16.0)
--- NOTE | 2022-09-19 21:56 | NUR ---
NURSE NOTE PT CURRENTLY IN DIALYSIS, LESS SOB, LESS ANXIOUS THAN NOTED EARLIER. TOLERATES HS MEDS. DR LEE CALLED, SPOKE WITH CHARGE NURSE. REPORTED 'LARGE VOLUME OF BLEED MOST LIKELY INDUODENUM IN SMALL INTESTINE BUT HARD TO SEE R/T BLEEDING'. SCHEDULED FOR UPPER ENDO WITH DR LEE. NPO AFTER BKFST. TO CALL HIM IF NOTED ANY PROBLEMS. [phone].
--- NOTE | 2022-09-19 22:51 | NUR ---
DIALYSIS COMPLETE. 2 UNITS OF PRBC GIVEN IN DIALYSIS. DR GUO VISITED PT IN DIALYSIS. PT RETURNED TO FLOOR. CALL LIGHT IN REACH. O2 AT 3L/MIN PER NC.
--- NOTE | 2022-09-19 22:56 | NUR ---
NURSE NOTE PT RECEIVED FIRE IGNITION TEAACHING RE NO SMOKING ON OXYGEN, NO SMOKING IN HOSPITAL EARLIER. CALL LIGHT IN REACH
--- NOTE | 2022-09-19 23:59 | NUR ---
PT REFUSED BLOOD DRAW PER ACCOUNTS RECEIVABLE ASSOCIATE.
[2022-09-20] VITALS (15 sets, daily range): BP systolic 81–174; BP diastolic 52–84
[2022-09-20] MEDS ORDERED: HUMALOG KW100 UNIT/1 SC (00:10)
--- NOTE | 2022-09-20 03:37 | NUR ---
PRESS READER SUMMARY H/H LOW, WENT TO DIALYSIS AND DURING PROCEDURE, RECEIVED 2 UNITS OF PRBC. MD WAS NOTIFIED OF H/H PRIOR TO PRBCS, ORDERED A H/H FOR FOLLOW UP POST DIALYSIS. PT RETURNED FROM DIALYSIS BUT REFUSED BLOOD DRAW. VSS. HAS BEEN RESTING QUIETLY WITH NO NOTED S/S ACUTE DISTRESS. WHILE PT WAS IN DIALYSIS, DR LEE REVIEWED PTS CAPSULE STUDY, AND NOTED APPARENT BLEEDING IN PTS SMALL INTESTINE. AND SCHEDULED PT FOR UPPER ENDO LATER TODAY. WILL BE NPO AFTER BKFST. CL LIQ FOR NOW. CALL LIGHT IN REACH. WILL CONTINUE TO MONITOR. VSS.
[2022-09-20 12:19] LABS: BASOPHILS ABSOLUTE AUTO 0.02 K/mm3 (0.00-0.23); BASOPHILS PERCENT AUTO 0 % (0-2); EOSINOPHILS ABSOLUTE AUTO 0.11 K/mm3 (0.00-0.68); EOSINOPHILS PERCENT AUTO 2 % (0-6); Hematocrit 23.6 % (33.0-51.0); IMMATURE GRAN ABSOLUTE AUTO 0.03 K/mm3 (0.00-0.10); IMMATURE GRAN PERCENT AUTO 1 % (0-1); LYMPHOCYTES ABSOLUTE AUTO 0.55 K/mm3 (0.84-5.20); LYMPHOCYTES PERCENT AUTO 10 % (21-46); MONOCYTES ABSOLUTE AUTO 0.42 K/mm3 (0.16-1.47); MONOCYTES PERCENT AUTO 8 % (4-13); Mean Corpuscular HGB 28.5 pg (26.0-34.0); Mean Corpuscular HGB Conc 33.9 g/dL (31.5-36.5); Mean Platelet Volume 9.4 fL (9.1-12.4); NEUTROPHILS ABSOLUTE AUTO 4.26 K/mm3 (1.96-9.15); NEUTROPHILS PERCENT AUTO 79 % (41-73); Platelet Count 150 K/mm3 (150-400); RDW Coefficient Variation 17.1 % (11.7-14.2); RDW Standard Deviation 51.6 fL (35.1-46.3); Red Blood Cell Count 2.81 M/mm3 (3.80-5.20); White Blood Cell Count 5.39 K/mm3 (4.00-11.30)
[2022-09-20 12:38] LABS: Mean Corpuscular Volume 84 fL (80-100)
--- NOTE | 2022-09-20 16:00 | NUR ---
INTO [facility] VIA [facility]. PT A&O, BUT CONFUSED ABOUT THE DATE SHE HAS BEEN IN THE HOSPITAL " FOR A WHILE." History, Chart, Medications and Allergies reviewed before start of procedure.Patient confirms NPO status and agrees with scheduled surgery. MURMUR ASCULTATED.LUNGS TIGHT AND DIMINISHED THROUGH OUT WITH BIBASILAR FINE CRACKLES. SATS>90% ON [address] SANDOVAL AWARE AND DUO NEB ORDERED. PT HAS FISTULA TO LEFT ARM. PT STATES THAT SHE UNDERWENT DIALYSIS THIS AM. PT INCONTINENT OF URINE AND STOOL.
--- NOTE | 2022-09-20 16:07 | NUR ---
IV TO RIGHT FOREARM PATENT #20-NS INITIATED @ [facility].
--- NOTE | 2022-09-20 16:18 | NUR ---
09/20/22 1618 Brian Bolton History, Chart, Medications and Allergies reviewed before start of procedure.MONITOR INTACT WITH CONTINUOUS PULSE OXIMETRY, CONTINUOUS END TITAL CO2, AND INTERMITTENT BLOOD PRESSURE.EKG MONITORED DURING PROCEDURE.O2 VIA POM MASK INTACT THROUGHOUT SEDATION/PROCEDURE. Bite Block Placed,REMOVED AFTER PROCEDURE.PATIENT DETERMINED TO BE ASA APPROPRIATE FOR PROPOFOL SEDATION PRIOR TO START OF PROCEDURE BY DR. SANDOVAL.
--- NOTE | 2022-09-20 16:59 | NUR ---
SHIFT SUMMARY- PT IS ALERT, PLESANT AND COOPERATVIE. SHE HAD BREAKFAST AND THEN WAS NPO FOR PROCEDURE THIS AFTERNOON. SHE WENT FOR DIALYSIS THIS MORNING. THIS AFTERNOON SHE WENT FOR HER UPPER SCOPE. CURRENT OFF THE UNIT. EDUCATED ON SMOKING AND FIRE HAZARD.
--- NOTE | 2022-09-21 03:47 | NUR ---
PATIENT SLEPT WELL AFTER HS MEDS WHEN SHE RECEIVED 5MG FLEXARIL WITH TYLENOL FOR HER CHRONIC BACK PAIN. NO C/O SHORTNESS OF BREATH AT REST. PATIENT SAID SHE WAS FEELING MUCH IMPROVED OVER THE DAY BEFORE. SPOUSE IS VERY INTERESTED IN BEING A PART OF HER TREATMENT AND DISCHARGE EDUCATION.
[2022-09-21 04:32] VITALS: BP 164/57
[2022-09-21 07:47] VITALS: BP 161/48
[2022-09-21 09:50] LABS: Hematocrit 23.8 % (33.0-51.0); Hemoglobin 7.8 g/dL (11.5-16.0)
[2022-09-21 09:58] LABS: Albumin, Blood 2.8 g/dL (3.4-5.0); Anion Gap 10 mmol/L (6-16); Blood Urea Nitrogen 42 mg/dL (8-24); Bun/Creatinine Ratio 10.3 (12.0-20.0); CO2, Blood 27 mmol/L (21-32); Chloride, Blood 101 mmol/L (98-108); Creatinine, Blood 4.06 mg/dL (0.40-1.00); Glomerular Filtration Rate 11 (60-); Glucose, Blood 252 mg/dL (70-99); Magnesium, Blood 1.9 mg/dL (1.6-2.4); Phosphorus, Blood 4.6 mg/dL (2.5-4.9); Potassium, Blood 4.4 mmol/L (3.5-5.5); Sodium, Blood 138 mmol/L (136-145)
[2022-09-21 14:53] VITALS: BP 155/66
--- NOTE | 2022-09-21 17:03 | NUR ---
SHIFT SUMMARY PT RESTING QUIETLY AT START OF SHIFT. WOKE EASILY FOR CARE. PER REPORT, PT HAS BEEN IRRITABLE AND REFUSING MOST CARE. PT AGAIN REFUSED LAB DRAW NEEDED. BRIM STRETCHER IN TO TALK WITH PT AND EXPLAIN PLAN OF CARE. PT THEN AGREEABLE TO LAB DRAW AND CARE NEEDED. DR URIOSTEGUI IN TO SEE PT AND ADVANCED DIET. PT ABLE TO NOW HAVE SOFT DIET AND VERY GRATEFUL TO EAT. MEDICATIONS ADJUSTED; SEE EMAR. PT HAS RESTED QUIETLY MOST OF THE DAY, AND TALKING ON PHONE OFF AND ON. NO C/O. CALL LT IN REACH.
[2022-09-21 20:37] VITALS: BP 159/59
[2022-09-22] VITALS (16 sets, daily range): BP systolic 99–168; BP diastolic 44–76
[2022-09-22 05:16] LABS: BASOPHILS ABSOLUTE AUTO 0.02 K/mm3 (0.00-0.23); BASOPHILS PERCENT AUTO 0 % (0-2); EOSINOPHILS ABSOLUTE AUTO 0.27 K/mm3 (0.00-0.68); EOSINOPHILS PERCENT AUTO 4 % (0-6); Hemoglobin 7.1 g/dL (11.5-16.0); IMMATURE GRAN ABSOLUTE AUTO 0.02 K/mm3 (0.00-0.10); IMMATURE GRAN PERCENT AUTO 0 % (0-1); LYMPHOCYTES ABSOLUTE AUTO 0.96 K/mm3 (0.84-5.20); LYMPHOCYTES PERCENT AUTO 14 % (21-46); MONOCYTES ABSOLUTE AUTO 0.61 K/mm3 (0.16-1.47); MONOCYTES PERCENT AUTO 9 % (4-13); Mean Corpuscular HGB 28.2 pg (26.0-34.0); Mean Corpuscular HGB Conc 32.3 g/dL (31.5-36.5); Mean Corpuscular Volume 87 fL (80-100); Mean Platelet Volume 9.2 fL (9.1-12.4); NEUTROPHILS ABSOLUTE AUTO 5.04 K/mm3 (1.96-9.15); NEUTROPHILS PERCENT AUTO 73 % (41-73); Platelet Count 147 K/mm3 (150-400); RDW Coefficient Variation 15.5 % (11.7-14.2); RDW Standard Deviation 48.9 fL (35.1-46.3); Red Blood Cell Count 2.52 M/mm3 (3.80-5.20); White Blood Cell Count 6.92 K/mm3 (4.00-11.30)
[2022-09-22 05:59] LABS: Albumin, Blood 2.6 g/dL (3.4-5.0); Anion Gap 8 mmol/L (6-16); Blood Urea Nitrogen 60 mg/dL (8-24); Bun/Creatinine Ratio 10.8 (12.0-20.0); CO2, Blood 27 mmol/L (21-32); Calcium, Blood 8.2 mg/dL (8.5-10.1); Chloride, Blood 103 mmol/L (98-108); Creatinine, Blood 5.55 mg/dL (0.40-1.00); Glomerular Filtration Rate 8 (60-); Glucose, Blood 165 mg/dL (70-99); Magnesium, Blood 2.1 mg/dL (1.6-2.4); Potassium, Blood 4.3 mmol/L (3.5-5.5); Sodium, Blood 138 mmol/L (136-145)
--- NOTE | 2022-09-22 06:38 | NUR ---
SHIFT SUMMARY PT A&OX3. COOPERATIVE OF CARE BUT WITH COAXING. PT DID NOT WANT HER IV FLUSHED AT START OF SHIFT BUT WITH EDUCATION WAS AGREEABLE. NO ACUTE CHANGES. PT CALLS APPROPRIATELY. Hgb LAB DROPPED TO 7.1 WITH MORNING LAB DRAW. PT REMINDED OF POSSIBLE SOURCES OF IGNITION AND NO SMOKING POLICY. CIGERATES REMAIN LOCKED IN DRAWER. BED IN LOWEST POSITION AND CALL LIGHT IN REACH.
[2022-09-22 12:57] LABS: Hematocrit 26.4 % (33.0-51.0); Hemoglobin 8.8 g/dL (11.5-16.0)
--- NOTE | 2022-09-22 15:36 | NUR ---
PT AWAKE AT START OF SHIFT, RESTING QUIETLY WATCHING TV. NO C/O. REQUESTING BREAKFAST. PT TAKEN DOWN FOR DIALYSIS AT 0845, PER MACHINE STAMPER. PT LATER RETURNED AT LUNCH. DR URIOSTEGUI HERE TO SEE PT WHEN SHE RETURNED TO AND DISCUSSED PLAN OF CARE. LAB DRAW ORDERED AND COMPLETED. DR URIOSTEGUI RETURNED TO TALK WITH PT AND D/C ORDERS PLACED. AVIONICS INSTALLER ARRANGED TX. PT WAS TO BE PICKED UP AT 1530, BUT NOW PUSHED BACK TO 1700. PT TO RETURN TO [facility] VIA W/C. BELONGINGS ON PT.
== END 2022-09-22 16:39 | DRG 377 ==
LOC: ER 09:15 → MEDS 12:41
PROVIDERS: Emergency Medicine; Internal Medicine Gastroenterology; Internal Medicine Nephrology; ADMIT Internal Medicine
PROC: 30233N1 Transfusion of Nonautologous Red Blood Cells into Peripheral Vein, Percutaneous Approach (ICD-10-PCS; principal; 2022-09-19)
PROC: 3E0G8GC Introduction of Other Therapeutic Substance into Upper GI, Via Natural or Artificial Opening Endoscopic (ICD-10-PCS; 2022-09-20)
PROC: 0W3P8ZZ Control Bleeding in Gastrointestinal Tract, Via Natural or Artificial Opening Endoscopic (ICD-10-PCS; 2022-09-20 16:00)
PROC: 5A1D70Z Performance of Urinary Filtration, Intermittent, Less than 6 Hours Per Day (ICD-10-PCS; 2022-09-20 16:00)
DX: K31.82 Dieulafoy lesion (hemorrhagic) of stomach and duodenum (principal); K31.811 Angiodysplasia of stomach and duodenum with bleeding; N18.6 End stage renal disease; I13.2 Hypertensive heart and chronic kidney disease with heart failure and with stage 5 chronic kidney disease, or end stage renal disease; K92.1 Melena; D63.1 Anemia in chronic kidney disease; E11.22 Type 2 diabetes mellitus with diabetic chronic kidney disease; J44.9 Chronic obstructive pulmonary disease, unspecified; G25.81 Restless legs syndrome; K21.9 Gastro-esophageal reflux disease without esophagitis; G89.29 Other chronic pain; K44.9 Diaphragmatic hernia without obstruction or gangrene; E87.5 Hyperkalemia; E88.09 Other disorders of plasma-protein metabolism, not elsewhere classified; I48.91 Unspecified atrial fibrillation; I50.9 Heart failure, unspecified; E78.5 Hyperlipidemia, unspecified; G20 Parkinson's disease; F41.9 Anxiety disorder, unspecified; F17.210 Nicotine dependence, cigarettes, uncomplicated; Z95.828 Presence of other vascular implants and grafts; Z88.6 Allergy status to analgesic agent; Z79.899 Other long term (current) drug therapy; Z88.8 Allergy status to other drugs, medicaments and biological substances; Z79.4 Long term (current) use of insulin; Z79.891 Long term (current) use of opiate analgesic; Z99.2 Dependence on renal dialysis; Z90.49 Acquired absence of other specified parts of digestive tract; Z98.890 Other specified postprocedural states; Z86.73 Personal history of transient ischemic attack (TIA), and cerebral infarction without residual deficits
CPT/HCPCS: 36415; 36430; 80053; 80069; 82947; 83735; 85014; 85018; 85025; 86850; 86900; 86901; 86923; 93005; 93010; 94640; 94664; 94760; 99285-25; A9270; C9113; J0171; J1610; J1815; J2001; J2250; J2704; J7030; P9016

== ENCOUNTER 2022-10-17 13:09 | Inpatient (IN) | payer MEDICARE ==
[2022-10-17] VITALS (25 sets, daily range): BP systolic 91–143; BP diastolic 39–130
[~2022-10-17] VITALS: Ht 152 cm; Wt 74.8 kg
[~2022-10-17 13:09] MED LIST changes: +B-COMPLEX WITH1 EACH PO; +HUMALOG KW100 UNIT/1 SC; +LOKELMA10 GM PO; +RENA VITE
[2022-10-17 13:52] LABS: BASOPHILS ABSOLUTE AUTO 0.02 K/mm3 (0.00-0.23); BASOPHILS PERCENT AUTO 0 % (0-2); EOSINOPHILS ABSOLUTE AUTO 0.12 K/mm3 (0.00-0.68); EOSINOPHILS PERCENT AUTO 2 % (0-6); IMMATURE GRAN ABSOLUTE AUTO 0.03 K/mm3 (0.00-0.10); IMMATURE GRAN PERCENT AUTO 1 % (0-1); LYMPHOCYTES PERCENT AUTO 10 % (21-46); MONOCYTES PERCENT AUTO 7 % (4-13); Mean Corpuscular HGB 28.7 pg (26.0-34.0); Mean Corpuscular HGB Conc 32.5 g/dL (31.5-36.5); Mean Corpuscular Volume 89 fL (80-100); Mean Platelet Volume 9.5 fL (9.1-12.4); NEUTROPHILS ABSOLUTE AUTO 4.68 K/mm3 (1.96-9.15); NEUTROPHILS PERCENT AUTO 80 % (41-73); NRBC ABSOLUTE 0.06 K/mm3 (0.00-0.02); Platelet Count 175 K/mm3 (150-400); RDW Coefficient Variation 15.9 % (11.7-14.2); RDW Standard Deviation 50.7 fL (35.1-46.3); Red Blood Cell Count 1.74 M/mm3 (3.80-5.20); White Blood Cell Count 5.85 K/mm3 (4.00-11.30)
[2022-10-17 13:58] LABS: Hematocrit 15.4 % (33.0-51.0)
[2022-10-17 14:03] LABS: Albumin, Blood 2.7 g/dL (3.4-5.0); Albumin/Globulin Ratio 0.8 (0.8-1.8); Bilirubin, Total 0.3 mg/dL (0.1-1.0); Bun/Creatinine Ratio 13.6 (12.0-20.0); Calcium, Blood 8.4 mg/dL (8.5-10.1); Creatinine, Blood 4.12 mg/dL (0.40-1.00); Globulin, Blood 3.2 g/dL (2.2-4.0); Potassium, Blood 4.3 mmol/L (3.5-5.5); Total Protein, Blood 5.9 g/dL (6.4-8.2)
--- NOTE | 2022-10-17 19:17 | NUR ---
SUMMARY PT ARRIVES TO ICU 4 FROM ER AT 1700. PT IS A/O X4 BUT A LITTLE FORGETFUL AND IMPULSIVE. PT HAS UNIT OF PRBC'S RUNNING. ER WAS UNABLE TO GET A SECOND IV THEREFORE IV PROTONIX WAS NOT STARTED. POWERGLIDE WAS PLACED AND PROTONIX STARTED. PT STATES SHE HAS HAD BLACK STOOL FOR 1 WEEK AND HAS BEEN FEELING WEAKER AND MORE TIRED THAN USUAL. STATES SHE HAS FALLEN AT HOME. HAS BRUISING TO R HIP AND DOWN R LEG IN VARIOUS STAGES OF HEALING. DIALYSIS FISTULA TO RFA. BP STABLE SINCE ARRIVAL. SECOND UNIT OF PRBC'S STARTED. CALL LIGHT IN REACH. PT DENIES SOURCE OF IGNITION, EDUCATED ABOUT NO SMOKING, VAPING, OR OPEN FLAME WHILE IN HOSPITAL.
[2022-10-17 23:18] LABS: Hematocrit 20.3 % (33.0-51.0); Hemoglobin 6.9 g/dL (11.5-16.0)
[2022-10-17 23:45] LABS: Prothrombin Time Results 10.5 Sec (9.7-11.5)
[2022-10-18] VITALS (88 sets, daily range): BP systolic 90–154; BP diastolic 33–126
--- NOTE | 2022-10-18 05:54 | NUR ---
NOC SHIFT SUMMARY PT A/O, SLIGHT CONFUSION WHEN FIRST WAKING UP. SR, BP WNL. BP MEDS HELD EARLY IN SHIFT DUE TO SBP 90'S AT THE TIME. ON 3 L NC, THIS IS PT'S BASELINE. DENIES N/V, STATES IS HUNGRY. CLEAR LIQUIDS OK PER DR. MELTON FOR DINNER. VOIDS USING BSC OR IS INCONTINENT. BM X3 THIS SHIFT, GETTING PROGRESSIVELY BROWNER, BM'S WERE BLACK AT BEGINNING OF SHIFT AND AT HOME PRIOR TO ADMIT. SKIN IS COVERED WITH SCATTERED BRUISES, PT STATES SHE FELL ONTO HER W/C A FEW DAYS AGO. NO OPEN AREAS NOTED. PIV X1, PG X1, BOTH FLUSH AND WITHDRAW WELL. TOTAL OF 2 UNITS PRBC'S TRANFUSED. HGB INCREASED FROM 5.0 TO 6.9. RECHECK H/H SENT AT 0530.
[2022-10-18 06:44] LABS: Hematocrit 20.4 % (33.0-51.0); Hemoglobin 6.9 g/dL (11.5-16.0)
[2022-10-18 07:08] LABS: Magnesium, Blood 2.1 mg/dL (1.6-2.4)
[2022-10-18 07:10] LABS: Alanine Aminotransfer (ALT/SGP <6 U/L (12-78); Albumin, Blood 2.5 g/dL (3.4-5.0); Albumin/Globulin Ratio 0.9 (0.8-1.8); Alk Phos 61 U/L (50-136); Anion Gap 6 mmol/L (6-16); Aspartate Aminotrans (AST/SGOT 11 U/L (12-37); Bilirubin, Total 0.5 mg/dL (0.1-1.0); Blood Urea Nitrogen 70 mg/dL (8-24); Bun/Creatinine Ratio 12.3 (12.0-20.0); CO2, Blood 28 mmol/L (21-32); Calcium, Blood 8.5 mg/dL (8.5-10.1); Chloride, Blood 101 mmol/L (98-108); Creatinine, Blood 5.69 mg/dL (0.40-1.00); Globulin, Blood 2.8 g/dL (2.2-4.0); Glomerular Filtration Rate 7 (60-); Glucose, Blood 191 mg/dL (70-99); Phosphorus, Blood 6.3 mg/dL (2.5-4.9); Potassium, Blood 5.8 mmol/L (3.5-5.5); Sodium, Blood 135 mmol/L (136-145); Total Protein, Blood 5.3 g/dL (6.4-8.2)
--- NOTE | 2022-10-18 08:45 | NUR ---
INITIAL ASSESSMENT PATIENT ALERT AND ORIENTED EXCEPT TO DATE; PATIENT STATES THIS IS NORMAL FOR HER. PATIENT UNSTEADY ON FEET. PATIENT STATES SHE USES WALKER AND WHEELCHAIR AT HOME. PATIENT AFEBRILE. PATIENT HAS NO COMPLAINTS OF PAIN. LUNGS CLEAR THROUGHOUT. PATIENT SATTING 90% AND GREATER ON 3 L NC (HOME DOSE). PATIENT ON SR WITH BBB, HR 60S TO 70S. SBP 120S TO 150S. SCDS IN PLACE. ABD MILDLY DISTENDED, SOFT, NORMOACTIVE BOWEL SOUNDS NOTED. PATIENT HAD 3 BMS ON CEMETERY KEEPER LAST NIGHT. PATIENT CLEAR LIQUID AND THEN NPO AT 1200. PATIENT OCCASIONALLY INCONTINENT. ATTENDS IN PLACE. 1 PERSON ASSIST TO BSC. FISTULA TO LA- + BRUIT AND THRILL. PATIENT HAD RECENT FALL AT HOME; BRUISES TO R HIP, CHEST AND ABDOMEN. PROTONIX AT 10 MLS/ HOUR. BED LOW, CALL LIGHT IN REACH. WILL CONTINUE TO MONITOR PATIENT FREQUENTLY THROUGHOUT SHIFT.
[2022-10-18 10:59] LABS: Hematocrit 22.3 % (33.0-51.0); Hemoglobin 7.5 g/dL (11.5-16.0)
--- NOTE | 2022-10-18 11:30 | NUR ---
PATIENT AFEBRILE. HR 60S TO 70S. SBP 140S TO 150S. PATIENT REMAINS SATTING 90% AND GREATER ON 3 L NC. NO OTHER ACUTE CHANGES TO NOTE ON AT THIS TIME. NO COMPLAINTS AT THIS TIME. WILL CONTINUE TO MONITOR.
--- NOTE | 2022-10-18 14:42 | NUR ---
"Spiritual Care Attempted | Pt. Referral request Pt. is awake and in bed when she intially welcomes my visit. After introductions the Pt. verbally declined and spiritual care."
--- NOTE | 2022-10-18 16:00 | NUR ---
PATIENT AFEBRILE. HR 70S TO 80S. SBP LOW 100S TO 120S. PATIENT REMAINS SATTING 90% AND GREATER ON 3 L NC. NO COMPLAINTS AT THIS TIME. WILL CONTINUE TO MONITOR.
--- NOTE | 2022-10-18 18:37 | NUR ---
SHIFT SUMMARY PATIENT HAS REMAINED ALERT AND ORIENTED X 3. PATIENT DISORIENTED TO DATE BUT STATES SHE DOES NOT KNOW THE DATE AT BASELINE. PATIENT UNSTEADY ON FEET AND 1 PERSON ASSIST TO BSC. PATIENT STATES SHE USES WALKER OR WHEELCHAIR AT HOME. PATIENT HAS REMAINED AFEBRILE. PATIENT HAS NOT HAD ANY COMPLAINTS OF PAIN THIS SHIFT. PATIENT REMAINED SATTING 90% AND GREATER ON 3 L NC. PATIENT HAS REMAINED SR WITH BBB, HR 60S TO 80S. SBP 120S TO 150S. PATIENT HAD ONE SMALL, FORMED/ PASTY, BROWN/ BLACK BM AT END OF SHIFT. PATIENT INCONTENT OF STOOL AND URINE AT TIMES. ATTENDS IN PLACE. GOOD URINE OUTPUT. NO CHANGES TO SKIN NOTED. PATIENT HAS BEEN REPOSITIONING SELF IN BED FREQUENTLY. PROTONIX REMAINS INFUSING AT 10 MLS/ HOUR. PATIENT HAD 2400 MLS OFF WITH DIALYSIS THIS SHIFT. PATIENT GIVEN 1 UNIT PRBCS DURING DIALYSIS. PATIENT REFUSED BED BATH THIS SHIFT. BED LOW, CALL LIGHT IN REACH. PATIENT WILL BE HAVING EGD TONIGHT. REPORT WILL BE GIVEN TO ASSUMING COMMODITY DIRECTOR NURSE SHORTLY.
--- NOTE | 2022-10-18 20:51 | NUR ---
ASSUMED CARE OF PT AT 1915 BEDSIDE REPORT RECIEVED FROM MIGUEL A MAE. PT IS RESTING COMFORTABLY, WAITING TO BE TAKEN TO PROCEDURE. A/O, PLEASANT AND COOPERATIVE. SR W/BBB, BP WNL. LUNGS CTA/DIM BASES, PT REQUESTED AND RECIEVED A BREATHING TREATMENT. C/O BEING HUNGRY SHE HAS BEEN NPO SINCE NOON TODAY. PLAN IS UPPER ENDOSCOPY THIS EVENING. VOIDS USING BSC, OCCASIONALLY INCONTINENT, HAS BRIEF ON PER PT REQUEST. SKIN WITH MULTIPLE BRUISES FROM RECENT FALL AT HOME. NO OPEN AREAS VISUALIZED. PIV X1, PG X1, HAS PROTONIX INFUSING AT 10ML/HR. NO FAMILY AT BEDSIDE. PT STATES ALL OF HER FAMILY LIVES OUT OF STATE. SISTER IS DECISION MAKER AND PT RESIDES AT [facility], THEY CALLED PT TO GET UPDATE ON HER TODAY. PLAN IS TRANSFER TO PCU ROOM # 18 AFTER HER PROCEDURE. RN TO CONTINUE TO MONITOR.
--- NOTE | 2022-10-18 22:45 | NUR ---
PT TRANSPORTED TO PROCEDURE VIA CHAIR BY RN. ANUSHA AND MEDS BAGGED AWAITING LEVEL OF CARE ORDERS AT COMPLETION OF PROCEDURE.
--- NOTE | 2022-10-18 23:29 | NUR ---
10/18/[address] CELAYA; SEE ANESTHESIA RECORDS.
[2022-10-19] VITALS (18 sets, daily range): BP systolic 114–189; BP diastolic 46–112
--- NOTE | 2022-10-19 00:25 | NUR ---
CALLED REPORT TO MIGUEL A REES PT TO BE TRANSPORTED TO ROOM 364 AFTER PROCEDURE. BELONGINGS BAGGED UP AND DELIVERED TO MEDICAL FLOOR ROOM AFTER REPORT GIVEN.
--- NOTE | 2022-10-19 05:05 | NUR ---
SHIFT SUMMARY PATIENT ICU 04 TRANSFER FROM EGD PROCEDURE. [place] [facility] [place] INCONTINENT. POWERGLIDE RU ARM INTACT. TELE MONITOR NSR 75. FISTULA LEFT ARM. ON 3L O2 NC BASELINE. CBG 156. VSS/AFEBRILE. DENIES CHEST PAIN, SOB, AND N/V. HUNGRY AFTER PROCEDURE AND DR SAGASTUME REPORTS OKAY TO HAVE ADA DIET. WANTED TO SLEEP AFTER EATING. CALL LIGHT IN REACH. BED IN LOWEST POSITION. WILL CONTINUE TO MONITOR UNTIL DAY SHIFT NURSE ASSUMES CARE.
[2022-10-19 06:15] LABS: Hematocrit 24.6 % (33.0-51.0); Hemoglobin 8.2 g/dL (11.5-16.0)
[2022-10-19 06:37] LABS: Albumin, Blood 2.5 g/dL (3.4-5.0); Anion Gap 7 mmol/L (6-16); Blood Urea Nitrogen 39 mg/dL (8-24); Bun/Creatinine Ratio 8.9 (12.0-20.0); CO2, Blood 29 mmol/L (21-32); Calcium, Blood 7.8 mg/dL (8.5-10.1); Chloride, Blood 102 mmol/L (98-108); Glomerular Filtration Rate 10 (60-); Glucose, Blood 259 mg/dL (70-99); Magnesium, Blood 1.9 mg/dL (1.6-2.4); Phosphorus, Blood 5.5 mg/dL (2.5-4.9); Potassium, Blood 4.8 mmol/L (3.5-5.5); Sodium, Blood 138 mmol/L (136-145)
--- NOTE | 2022-10-19 21:50 | NUR ---
PATIENT DISCHARGED WITH PERSONAL BELONGINGS. [facility] PICKED PATIENT UP. DISCHARGE COMPLETE.
== END 2022-10-19 21:41 | disposition home or self-care (01) | DRG 377 ==
LOC: ER 13:09 → ICUE 15:36 → MEDS 10-19 00:41
PROVIDERS: Internal Medicine Nephrology; Student in an Organized Health Care Education/Training Program; ADMIT Internal Medicine
PROC: 30233N1 Transfusion of Nonautologous Red Blood Cells into Peripheral Vein, Percutaneous Approach (ICD-10-PCS; principal; 2022-10-17)
PROC: 5A1D70Z Performance of Urinary Filtration, Intermittent, Less than 6 Hours Per Day (ICD-10-PCS; 2022-10-17)
PROC: 0W3P8ZZ Control Bleeding in Gastrointestinal Tract, Via Natural or Artificial Opening Endoscopic (ICD-10-PCS; 2022-10-19)
DX: K31.82 Dieulafoy lesion (hemorrhagic) of stomach and duodenum (principal); K31.811 Angiodysplasia of stomach and duodenum with bleeding; N18.6 End stage renal disease; R57.8 Other shock; D62 Acute posthemorrhagic anemia; E87.1 Hypo-osmolality and hyponatremia; F11.20 Opioid dependence, uncomplicated; N25.81 Secondary hyperparathyroidism of renal origin; I13.2 Hypertensive heart and chronic kidney disease with heart failure and with stage 5 chronic kidney disease, or end stage renal disease; I48.20 Chronic atrial fibrillation, unspecified; I50.9 Heart failure, unspecified; I95.9 Hypotension, unspecified; D63.1 Anemia in chronic kidney disease; E11.22 Type 2 diabetes mellitus with diabetic chronic kidney disease; J44.9 Chronic obstructive pulmonary disease, unspecified; G25.81 Restless legs syndrome; K21.9 Gastro-esophageal reflux disease without esophagitis; E86.9 Volume depletion, unspecified; F17.210 Nicotine dependence, cigarettes, uncomplicated; E66.9 Obesity, unspecified; G89.4 Chronic pain syndrome; E78.5 Hyperlipidemia, unspecified; K31.89 Other diseases of stomach and duodenum; F41.9 Anxiety disorder, unspecified; E55.9 Vitamin D deficiency, unspecified; W19.XXXA Unspecified fall, initial encounter; I48.0 Paroxysmal atrial fibrillation; E87.5 Hyperkalemia; F32.A Depression, unspecified; Z86.73 Personal history of transient ischemic attack (TIA), and cerebral infarction without residual deficits; Z86.19 Personal history of other infectious and parasitic diseases; Z90.49 Acquired absence of other specified parts of digestive tract; Z88.8 Allergy status to other drugs, medicaments and biological substances; Z79.899 Other long term (current) drug therapy; Z79.4 Long term (current) use of insulin; Z86.16 Personal history of COVID-19; Z87.19 Personal history of other diseases of the digestive system; Z87.09 Personal history of other diseases of the respiratory system; Z87.11 Personal history of peptic ulcer disease; Z68.36 Body mass index [BMI] 36.0-36.9, adult
CPT/HCPCS: 36430; 80053; 80069; 82947; 83735; 84100; 85014; 85018; 85025; 85610; 85730; 86850; 86900; 86901; 86923; 93005; 93010; 94640; 94664; 96374; 99285-25; A9270; C1751; C9113; J0171; J0881; J1815; J2001; J2704; J7030; J7050; P9016

== ENCOUNTER 2022-11-04 15:24 | Emergency (ER) | payer MEDICARE ==
[~2022-11-04] VITALS: Ht 152.4 cm; Wt 77.0 kg
[2022-11-04 16:02] LABS: BASOPHILS ABSOLUTE AUTO 0.04 K/mm3 (0.00-0.23); BASOPHILS PERCENT AUTO 1 % (0-2); EOSINOPHILS ABSOLUTE AUTO 0.18 K/mm3 (0.00-0.68); EOSINOPHILS PERCENT AUTO 3 % (0-6); Hematocrit 20.7 % (33.0-51.0); Hemoglobin 6.8 g/dL (11.5-16.0); IMMATURE GRAN ABSOLUTE AUTO 0.03 K/mm3 (0.00-0.10); IMMATURE GRAN PERCENT AUTO 1 % (0-1); LYMPHOCYTES PERCENT AUTO 16 % (21-46); MONOCYTES ABSOLUTE AUTO 0.41 K/mm3 (0.16-1.47); MONOCYTES PERCENT AUTO 7 % (4-13); Mean Corpuscular HGB 29.2 pg (26.0-34.0); Mean Corpuscular HGB Conc 32.9 g/dL (31.5-36.5); Mean Corpuscular Volume 89 fL (80-100); Mean Platelet Volume 9.2 fL (9.1-12.4); NEUTROPHILS ABSOLUTE AUTO 4.57 K/mm3 (1.96-9.15); NEUTROPHILS PERCENT AUTO 73 % (41-73); Platelet Count 181 K/mm3 (150-400); RDW Coefficient Variation 14.8 % (11.7-14.2); RDW Standard Deviation 47.5 fL (35.1-46.3); Red Blood Cell Count 2.33 M/mm3 (3.80-5.20); White Blood Cell Count 6.23 K/mm3 (4.00-11.30)
[2022-11-04 16:15] LABS: Albumin, Blood 3.1 g/dL (3.4-5.0); Albumin/Globulin Ratio 0.9 (0.8-1.8); Bilirubin, Total 0.3 mg/dL (0.1-1.0); Bun/Creatinine Ratio 7.9 (12.0-20.0); Calcium, Blood 8.3 mg/dL (8.5-10.1); Creatinine, Blood 3.04 mg/dL (0.40-1.00); Globulin, Blood 3.5 g/dL (2.2-4.0); Potassium, Blood 3.8 mmol/L (3.5-5.5); Total Protein, Blood 6.6 g/dL (6.4-8.2)
[2022-11-04 16:41] LABS: International Normalized Ratio 0.97; Prothrombin Time Results 10.2 Sec (9.7-11.5)
[2022-11-04 18:00] VITALS: BP 156/52
== END 2022-11-04 19:09 | disposition short-term general hospital (02) ==
LOC: ER 15:24
PROVIDERS: Emergency Medicine
DX: K92.1 Melena (principal); D50.0 Iron deficiency anemia secondary to blood loss (chronic); E11.22 Type 2 diabetes mellitus with diabetic chronic kidney disease; I12.0 Hypertensive chronic kidney disease with stage 5 chronic kidney disease or end stage renal disease; N18.6 End stage renal disease; J44.9 Chronic obstructive pulmonary disease, unspecified; E78.5 Hyperlipidemia, unspecified; K21.9 Gastro-esophageal reflux disease without esophagitis; F17.210 Nicotine dependence, cigarettes, uncomplicated; Z86.73 Personal history of transient ischemic attack (TIA), and cerebral infarction without residual deficits; Z88.8 Allergy status to other drugs, medicaments and biological substances; Z99.2 Dependence on renal dialysis; Z79.4 Long term (current) use of insulin
CPT/HCPCS: 80053; 82272; 85025; 85610; 86850; 86900; 86901; 86923; 96374; 96375; 99284-25; A9270; C9113; J2765

== ENCOUNTER 2022-12-03 21:49 | Inpatient (IN) | payer MEDICARE ==
[~2022-12-03] VITALS: Ht 167.6 cm; Wt 70.0 kg
[2022-12-03 22:13] LABS: BASOPHILS ABSOLUTE AUTO 0.04 K/mm3 (0.00-0.23); BASOPHILS PERCENT AUTO 1 % (0-2); EOSINOPHILS ABSOLUTE AUTO 0.13 K/mm3 (0.00-0.68); EOSINOPHILS PERCENT AUTO 2 % (0-6); Hematocrit 38.2 % (33.0-51.0); IMMATURE GRAN ABSOLUTE AUTO 0.02 K/mm3 (0.00-0.10); IMMATURE GRAN PERCENT AUTO 0 % (0-1); LYMPHOCYTES ABSOLUTE AUTO 0.98 K/mm3 (0.84-5.20); LYMPHOCYTES PERCENT AUTO 17 % (21-46); MONOCYTES ABSOLUTE AUTO 0.55 K/mm3 (0.16-1.47); MONOCYTES PERCENT AUTO 10 % (4-13); Mean Corpuscular HGB 28.9 pg (26.0-34.0); Mean Corpuscular HGB Conc 31.4 g/dL (31.5-36.5); Mean Corpuscular Volume 92 fL (80-100); Mean Platelet Volume 9.3 fL (9.1-12.4); NEUTROPHILS ABSOLUTE AUTO 4.03 K/mm3 (1.96-9.15); NEUTROPHILS PERCENT AUTO 70 % (41-73); Platelet Count 206 K/mm3 (150-400); RDW Coefficient Variation 16.2 % (11.7-14.2); RDW Standard Deviation 51.9 fL (35.1-46.3); Red Blood Cell Count 4.15 M/mm3 (3.80-5.20); White Blood Cell Count 5.75 K/mm3 (4.00-11.30)
[2022-12-03 22:28] LABS: International Normalized Ratio 0.97; Prothrombin Time Results 10.2 Sec (9.7-11.5)
[2022-12-03 22:31] LABS: Alanine Aminotransfer (ALT/SGP 6 U/L (12-78); Albumin, Blood 3.7 g/dL (3.4-5.0); Albumin/Globulin Ratio 0.9 (0.8-1.8); Alk Phos 122 U/L (50-136); Anion Gap 8 mmol/L (6-16); Aspartate Aminotrans (AST/SGOT 11 U/L (12-37); Bilirubin, Total 0.5 mg/dL (0.1-1.0); Blood Urea Nitrogen 35 mg/dL (8-24); Bun/Creatinine Ratio 6.9 (12.0-20.0); CO2, Blood 31 mmol/L (21-32); Calcium, Blood 9.1 mg/dL (8.5-10.1); Chloride, Blood 98 mmol/L (98-108); Creatinine, Blood 5.06 mg/dL (0.40-1.00); Globulin, Blood 4.1 g/dL (2.2-4.0); Glomerular Filtration Rate 9 (60-); Glucose, Blood 409 mg/dL (70-99); Magnesium, Blood 2.7 mg/dL (1.6-2.4); Sodium, Blood 137 mmol/L (136-145); Total Protein, Blood 7.8 g/dL (6.4-8.2)
[2022-12-04] VITALS (26 sets, daily range): BP systolic 135–208; BP diastolic 52–141
[2022-12-04 00:29] LABS: Ethanol (Alcohol), Blood, Med <3 mg/dL
[2022-12-04] MEDS ORDERED: LOSA25 PO (03:32)
[2022-12-04] MEDS ORDERED: DICLOFENAC SODI50 GM TOP (03:39)
--- NOTE | 2022-12-04 04:55 | NUR ---
TRANSFER PATIENT TRANSFERRED FROM [facility] AT 0330. PATIENT SETTLED INTO ROOM. PATIENT A&O TO SELF. PATIENT OCCASSIONALLY ANSWERS "HOSPITAL" WHEN ASKED WHERE SHE IS. PATIENT HAS SLURRED SPEECH AND LEFT SIDE FACIAL DROOP. PATIENT ALSO HAS LEFT SIDED WEAKNESS. PATIENT DOES NOT FOLLOW DIRECTIONS, IS NOT REDIRECTABLE. PATIENT THRASHING IN BED, MUMBLING, PULLING AT LINES, REACHING OUT IN THE AIR. PATIENT HAS LEFT ARM FISTULA. BEDSIDE NURSING SWALLOW EVAL NOT COMPLETED DUE TO DROWSINESS. PATIENT ON TELE, SINUS TACHYCARDIA AT 120. PATIENT HAS MRI ORDERED FOR MORNING.
[2022-12-04 05:58] LABS: BASOPHILS ABSOLUTE AUTO 0.05 K/mm3 (0.00-0.23); BASOPHILS PERCENT AUTO 1 % (0-2); EOSINOPHILS ABSOLUTE AUTO 0.06 K/mm3 (0.00-0.68); EOSINOPHILS PERCENT AUTO 1 % (0-6); Hematocrit 38.9 % (33.0-51.0); Hemoglobin 12.3 g/dL (11.5-16.0); IMMATURE GRAN ABSOLUTE AUTO 0.04 K/mm3 (0.00-0.10); IMMATURE GRAN PERCENT AUTO 0 % (0-1); LYMPHOCYTES ABSOLUTE AUTO 0.64 K/mm3 (0.84-5.20); LYMPHOCYTES PERCENT AUTO 7 % (21-46); MONOCYTES ABSOLUTE AUTO 0.43 K/mm3 (0.16-1.47); MONOCYTES PERCENT AUTO 5 % (4-13); Mean Corpuscular HGB 29.1 pg (26.0-34.0); Mean Corpuscular HGB Conc 31.6 g/dL (31.5-36.5); Mean Corpuscular Volume 92 fL (80-100); Mean Platelet Volume 9.3 fL (9.1-12.4); NEUTROPHILS ABSOLUTE AUTO 8.27 K/mm3 (1.96-9.15); NEUTROPHILS PERCENT AUTO 87 % (41-73); Platelet Count 213 K/mm3 (150-400); RDW Coefficient Variation 16.3 % (11.7-14.2); RDW Standard Deviation 50.8 fL (35.1-46.3); Red Blood Cell Count 4.23 M/mm3 (3.80-5.20); White Blood Cell Count 9.49 K/mm3 (4.00-11.30)
[2022-12-04 06:17] LABS: Magnesium, Blood 2.5 mg/dL (1.6-2.4)
[2022-12-04 06:20] LABS: CHOL/HDL RATIO 2.2; Cholesterol 119 mg/dL (50-200); HDL Cholesterol 55 mg/dL (>39); LDL/HDL RATIO 0.4; Low Density Lipoprotein Chol 24 mg/dL (0-110); Triglycerides 200 mg/dL (30-160); Very Low Density Lipoprot Chol 40 mg/dL (6-32)
[2022-12-04 06:22] LABS: Alanine Aminotransfer (ALT/SGP <6 U/L (12-78); Albumin, Blood 3.7 g/dL (3.4-5.0); Albumin/Globulin Ratio 0.9 (0.8-1.8); Alk Phos 112 U/L (50-136); Anion Gap 8 mmol/L (6-16); Aspartate Aminotrans (AST/SGOT 14 U/L (12-37); Bilirubin, Total 0.4 mg/dL (0.1-1.0); Blood Urea Nitrogen 34 mg/dL (8-24); Bun/Creatinine Ratio 5.9 (12.0-20.0); CO2, Blood 27 mmol/L (21-32); Calcium, Blood 9.1 mg/dL (8.5-10.1); Chloride, Blood 100 mmol/L (98-108); Creatinine, Blood 5.74 mg/dL (0.40-1.00); Glomerular Filtration Rate 7 (60-); Glucose, Blood 398 mg/dL (70-99); Potassium, Blood 4.2 mmol/L (3.5-5.5); Sodium, Blood 135 mmol/L (136-145); Total Protein, Blood 7.7 g/dL (6.4-8.2)
--- NOTE | 2022-12-04 07:15 | NUR ---
ASSUMED CARE OF PT- BEDSIDE REPORT COMPLETED WITH NIGHT RN. PER REPORT THE PT HAS BEEN THRASHING AROUND IN THE BED, MOANING MOSTLY NON-VERBAL UNABLE TO FOLLOW DIRECTIONS. ATTENDS IN PLACE. ON MORNING VITALS THE PT WAS NOTED TO BE WET, O2 SATS WERE 84-85% ON ROOM AIR, PLACED ON 2L VIA NC. SATS IMPROVED TO 94%. ROLLED PT TO CHANGE WET ATTENDS, ONCE DRY ATTENDS WERE IN PLACE THE PT STOPPED, SHE STOPPED BREATHING FOR 10 SECONDS OR SO TURNED CALDERA AND THEN BEGAN FOAMING AT THE MOUTH AND GAGGING. ROLLED TO THE RIGHT SIDE AND PT VOMITED CLEAR EMESIS WITH A SLIGHT BLUE TINGE. CALLED MD, BLOOD SUGAR WAS 417, BP ELEVATED, TELE CALLED HR IN THE 150'S. PT HAD INCONTINENT BM AT THE TIME OF THE EVENT WELL. CALLED CONTROLLER INSTRUCTORMIGUEL A GREEN WHO CAME TO THE BEDSIDE. ORDER RECIEED FOR CHEST XR, AND REPEAT TROPONIN, WELL O2 VIA NC TO MAINTAIN SATS GREATER THAN 90%.
--- NOTE | 2022-12-04 08:15 | NUR ---
RAPID RESPONSE- FTER CALLING THE MD AND RECIEVING THE ORDERS FOR CHEST XR, STAFF WERE ATTEMPTING TO ROLL PT TO CLEAN UP THE INCONTINENT STOOL FROM HER EVENT. PT BEGAN FOAMING AT THE MOUTH WHEN THE HOB WAS LOWERED TO ROLL HER. ROLLED HER TO THE RIGHT CALLED FOR ASSISTANCE AND A RAPID RESPONSE. RESP RATE WAS ELEVATED, SOUNDED LIKE THE PT MIGHT HAVE ASPIRATED, LUNG SOUNDS MOIST, RT AT THE BEDSIDE AT THE TIME OF THE EVENT. HR TACHY UP TO THE 160'S. PT UNABLE TO VERBILIZE ANY CHEST PAIN, LEFT SIDED FACIAL DROOP MORE PRONOUNCED AT THIS TIME, SUCTION AT THE BEDSIDE USED TO CLEAR THE AIRWAY. BG RECHECKED AND WAS 441. MD AT THE BEDSIDE, FOR THE RAPID, CHEST XR CHANGED TO 1V AT THE BEDSIDE. PT TO BE TRANSFERED TO PCU 14. CALLED RETAIL EVENT AND SALES ASSISTANT TO GIVE REPORT AND WAS INSRUCTED TO TRANSFER THE PT AND GIVE REPORT AT TE BEDSIDE. PT HAD AN ANOTHER EVENT IN THE HALLWAY PRIOR TO GETTING THE BED INTO THE ROOM. TELE CALLED AND SAID PT IN [facility], PT GAZED TO THE RIGHT AND BEGAN FOAMING AT THE MOUTH AND VOMITED MORE CLEAR LIQUID WITH A GREEN TINGE. STAFF ROLLED HER TO THE RIGHT SIDE IN THE POE, AND GOT THE PT INTO THE ROOM. BED SIDE REPORT COMPLETED WITH RETAIL EVENT AND SALES ASSISTANT LENA ECHAVARRIA.
--- NOTE | 2022-12-04 08:50 | NUR ---
BOSTON CUTTER AT 0817 PATIENT WAS LAYING IN BED SLUMPED SLIGHTLY, RT AT BEDSIDE SUCTIONING MOUTH, PATIENT NOT RESPONSIVE TO STAFF. THIS RN (BOSTON CUTTER-RN) DID PAINFUL STIMULI TO MIDSTERNUM PATIENT GRIMMACED AND RIGHT SIDE OF FACE SQUINCHED BUT LEFT SIDE WAS FLACCID. PATIENT MOVED ALL EXTREMETIES HOWEVER LEFT SIDE IS WEAKER WITH PAINFUL RESPONSE. POSITIVE PURPOSEFUL WITHDRAWL. PATIENT PUPIL EQUAL HOWEVER SLUGGISH UPON FIRST ASSESMENT PUPIL SIZE 4 BILAT. PATIENT HAS NASAL CANULA IN PLACE AND OXYGENATION 98-100% BUT RT STATED SHE WAS LOW AT 88% PRIOR TO THIS RN'S ARRIVAL. STATED BY PRIMARY RN THAT PATIENT VOMITTED UP TWICE WITH BILE CONTENT AND STOOLED TWICE WELL PRIMARY TO THIS RN'S ARRIVAL. PATIENT'S BLOOD SUGAR IS 441 AND WAS 417 THIS AM WITH NO COVERAGE GIVEN THUS FAR. DR AGUDELO AT BEDSIDE WITH OTHER TEAM MEMBERS ASSESSING PATIENT AT 0825. PATIENT BP HAS BEEN ELEVATED SEE VITALS) HIGH 208/93 NO MEDICATION GIVEN THUS FAR. PATIENT NOT GETTING BLOOD THINNERS OF YET THIS MORNING. SHE HAS BEEN SINUS TACHYCARDIA BY LOCKET MAKER'S RESPONSE. PT IS PRIOR HERE FOR CVA AND AN MRI IS ORDERED BUT NOT DONE YET, ENCOURAGING IT TO BE DONE SOON POSSIBLE, DR'S AGREE. CXR ORDERED THIS AM ALONG WITH SOME NEW LABS/ TROPONIN AND BNP BY DR AGUDELO (SEE ORDERS). PATIENT BEING MOVED TO PCU 13 FOR FURTHER CARE.
[2022-12-04 10:21] LABS: Albumin, Blood 3.5 g/dL (3.4-5.0); Anion Gap 10 mmol/L (6-16); Blood Urea Nitrogen 33 mg/dL (8-24); Bun/Creatinine Ratio 5.4 (12.0-20.0); CO2, Blood 23 mmol/L (21-32); Calcium, Blood 9.2 mg/dL (8.5-10.1); Chloride, Blood 102 mmol/L (98-108); Creatinine, Blood 6.11 mg/dL (0.40-1.00); Glomerular Filtration Rate 7 (60-); Glucose, Blood 445 mg/dL (70-99); Phosphorus, Blood 4.3 mg/dL (2.5-4.9); Potassium, Blood 4.3 mmol/L (3.5-5.5); Prolactin 37.7 ng/mL (2.74-19.64); Sodium, Blood 135 mmol/L (136-145)
--- NOTE | 2022-12-04 18:11 | NUR ---
SHIFT SUMMARY PT TO ROOM POST RAPID RESPONSE AT ABOUT 0850 THIS MORNING. WHEN LAID FLAT HAD EPISODES OF EMESIS, CLEAR W/GREEN TINGE. CBG 440 GIVEN 10UNITS PER ORDERS. PT MINIMALLY RESPONSIVE TO TACTILE STIMULI. PUPILS EQUAL & ROUND; RIGHT SLUGGISH COMPARED TO LEFT. MINIMAL GROSS MOTOR RESPONSE IN R ARM, NO MOTOR RESPONSE NOTED TO L ARM. GROSS MOTOR RESPONSE PRESENT BILATERAL LOWER LIMBS. PT DOES NOT FOLLOW DIRECTIONS. BOWEL TONES HYPOACTIVE, ABD MODERATELY DISTENDED. PLACED NG TUBE TO GIVE PO MEDS, SET TO LOW INTERMITTENT SUCTION FOR CT ONLY. HR ST W/RBB, TO SR, FLIPPING BACK AND FORTH THROUGHOUT SHIFT. BP'S ELEVATED, TRENDING DOWN. OXYGEN SATURATION ABOVE 93% ON 2L NC, LUNG SOUNDS DIMINISHED. LOW GRADE FEVER THROUGHOUT THE SHIFT.
[2022-12-04 19:34] LABS: Bun/Creatinine Ratio 5.6 (12.0-20.0); Calcium, Blood 8.8 mg/dL (8.5-10.1); Creatinine, Blood 7.1 mg/dL (0.40-1.00); Potassium, Blood 4.4 mmol/L (3.5-5.5)
[2022-12-05] VITALS (26 sets, daily range): BP systolic 104–217; BP diastolic 33–96
[2022-12-05 03:35] LABS: Hematocrit 35.3 % (33.0-51.0); Hemoglobin 11.3 g/dL (11.5-16.0)
[2022-12-05 03:57] LABS: Albumin, Blood 3.2 g/dL (3.4-5.0); Anion Gap 9 mmol/L (6-16); Blood Urea Nitrogen 44 mg/dL (8-24); Bun/Creatinine Ratio 5.7 (12.0-20.0); CO2, Blood 26 mmol/L (21-32); Calcium, Blood 8.4 mg/dL (8.5-10.1); Chloride, Blood 103 mmol/L (98-108); Glomerular Filtration Rate 5 (60-); Glucose, Blood 170 mg/dL (70-99); Magnesium, Blood 2.5 mg/dL (1.6-2.4); Phosphorus, Blood 5.2 mg/dL (2.5-4.9); Potassium, Blood 4.3 mmol/L (3.5-5.5); Sodium, Blood 138 mmol/L (136-145)
--- NOTE | 2022-12-05 05:35 | NUR ---
SHIFT SUMMARY AT START OF SHIFT PT OPENED EYES TO PAINFUL STIMULI AND MADE MUMBLED NOISES. WHEN ADMINISTERING MEDICATIONS AT APPROXIMATELY 0505, PT RESPONDED TO HER NAME BY SAYING "YEAH", SHE DID NOT ANSWER ANY QUESTIONS OR SAY ANY OTHER ACTUAL WORDS. SEE REASSESSMENT OF NEURO. BP WITHIN PERMISSIVE HYPERTENSION RANGE. SR-ST 80-110's w/ BBB. SpO2> 92% 2L VIA NC, NO S/S OF RESPIRATORY DISTRESS. NG TUBE REMAINS IN PLACE, PATENT, CLAMPED. INCONTINENT OF URINE, ATTENDS IN PLACE, NO BM THIS SHIFT. NO OTHER EVENTS, WILL REPORT TO ONCOMING RN.
--- NOTE | 2022-12-05 18:54 | NUR ---
SHIFT SUMMARY LETHARGIC, PATIENT DOES OPEN EYES TO NAME AND VERBAL STIMULI. SOME YES OR NO ANSWERS. CRIES OUT AND MOANS WITH CARE. OTHERWISE SLEEPS. SHIFTS IN BED. UNABLE TO SWALLOW, UNABLE TO FOLLOW DIRECTIONS OR PARTICIPATE. ALL THERAPIES DEFERRED UNTIL NEXT DAY. 1-2 L O2 VIA NC. SINUS TACH WITH BBB, MULTIFOCAL PVC'S, SHORT RUNS OF 2ND DEGREE HB, ELEVATED BP. CLONIDINE AND LOPRESSOR STOPPED PER DR RIOS. NO PO INTAKE, NG TUBE CAPPED. MEDS THROUGH NG. 1 BAG LR STARTED AT END OF SHIFT FOR HYDRATION. BED BATH COMPLETED. PRN TURNS AND CHANGES, SEVERAL WET ATTENDS THIS SHIFT. DIALYSIS DONE IN AM, 2L REMOVED. BLOOD SUGARS STABLE AND COVERED PER EMAR. PALLIATIVE CARE FOLLOWING AND UPDATING SISTER WHO IS ON A FOREGIN TRIP IN [facility] AT THIS TIME. CARDIOLOGY CONSULTED BY HOSPITALIST TEAM AT END OF SHIFT TO ADDRESS ELEVATED TROPONINS, SINUS TACH, BBB, MULTIFOCAL PVC'S, SHORT RUNS OF 2ND DEGREE HB. CONSULTED CALLED TO ANSWERING SERVICE.
[2022-12-06] VITALS (14 sets, daily range): BP systolic 143–185; BP diastolic 65–97
[2022-12-06 03:37] LABS: Hematocrit 37.6 % (33.0-51.0)
[2022-12-06 03:55] LABS: Albumin, Blood 3.1 g/dL (3.4-5.0); Anion Gap 11 mmol/L (6-16); Blood Urea Nitrogen 38 mg/dL (8-24); Bun/Creatinine Ratio 6.4 (12.0-20.0); CO2, Blood 29 mmol/L (21-32); Chloride, Blood 97 mmol/L (98-108); Creatinine, Blood 5.92 mg/dL (0.40-1.00); Glomerular Filtration Rate 7 (60-); Glucose, Blood 154 mg/dL (70-99); Magnesium, Blood 2.3 mg/dL (1.6-2.4); Phosphorus, Blood 6.8 mg/dL (2.5-4.9); Prolactin 31.8 ng/mL (2.74-19.64); Sodium, Blood 137 mmol/L (136-145)
--- NOTE | 2022-12-06 04:48 | NUR ---
SHIFT SUMMARY PT OPENS EYES TO VERBAL STIMULI AND MAKES MUMBLED NOISES. PT RESPONDED TO HER NAME BY SAYING "YEAH", SHE DID NOT ANSWER ANY QUESTIONS OR SAY ANY OTHER ACTUAL WORDS. BP WITHIN PERMISSIVE HYPERTENSION RANGE. SR-ST 80-120's w/ BBB. SpO2> 92% 1-2L VIA NC, NO S/S OF RESPIRATORY DISTRESS. NG TUBE REMAINS IN PLACE, PATENT, CLAMPED. PT DID NOT VOID THIS SHIFT, BLADDER SCAN AT APPROXIMATELY 0330 15mLs IN BLADDER. ATTENDS IN PLACE, NO BM THIS SHIFT. NO OTHER EVENTS, WILL REPORT TO ONCOMING RN.
--- NOTE | 2022-12-06 18:13 | NUR ---
SHIFT SUMMARY MENTATION CONTINUED TO GRADUALLY IMPROVE. ORIENTED 2-3, KNOWS HERSELF, HER FAMILY, AND THAT SHE IS IN HOSP. UNSURE OF DATE. MILD LEFT SIDE GAZE. SLOW TO RESPOND AND SOMEWHAT SLURRED SPEECH. ABLE TO FOLLOW SOME DIRECTIONS AND PARTICIPATE IN PT/OT. 1L VIA NC TO KEEP SATS ABOVE 90%. SINUS TACH 110-130 ON TELE WITH BBB, PVC'S. ONE SHORT RUN OF VTACH DURING EPISODE OF VOMITING. PERMISSIVE HYPERTENSION, GAVE PRN HYDRALIZINE ONCE PER EMAR. MEDS THROUGH NG TUBE IN AM. NG DC'D AT 1130, ADVANCED TO PUREE DIET WITH THIN LIQUIDS BY SPEECH THERAPY. ONE EPISODE VOMITING, POSSIBLY FROM GAG DURING ORAL CARE. BAND BIAS MACHINE OPERATOR CONSULTED. TOLERATED DINNER WELL, NO GAGGING, GOOD SWALLOW REFLEX. SAT UPRIGHT 90 DEGREES FOR 30 MINUTES POST MEAL. LOW URINE PRODUCTION TODAY. NO URINE OUTPUT, 65 ML ON BLADDER SCAN. DAUGHTER PRESENT DURING AM.
[2022-12-07] VITALS (19 sets, daily range): BP systolic 102–199; BP diastolic 49–100
[2022-12-07 03:58] LABS: Hematocrit 39.9 % (33.0-51.0); Hemoglobin 12.7 g/dL (11.5-16.0)
[2022-12-07 04:25] LABS: Albumin, Blood 3.2 g/dL (3.4-5.0); Anion Gap 12 mmol/L (6-16); Blood Urea Nitrogen 56 mg/dL (8-24); Bun/Creatinine Ratio 7.1 (12.0-20.0); CO2, Blood 27 mmol/L (21-32); Chloride, Blood 96 mmol/L (98-108); Creatinine, Blood 7.89 mg/dL (0.40-1.00); Glomerular Filtration Rate 5 (60-); Glucose, Blood 125 mg/dL (70-99); Magnesium, Blood 2.7 mg/dL (1.6-2.4); Phosphorus, Blood 7.8 mg/dL (2.5-4.9); Sodium, Blood 135 mmol/L (136-145)
--- NOTE | 2022-12-07 04:42 | NUR ---
SHIFT SUMMARY PT A&Ox2-3, KNOWS WHERE SHE IS AND WHY SHE IS HERE, IS ABLE TO REMEMBER STAFF AND FAMILY. PT FOLLOWS SIMPLE COMMANDS AND IS COOPERATIVE WITH CARE. PT ANSWERS YES AND NO QUESTIONS APPROPRIATELY. DENIES PAIN OR DISCOMFORT. BP WITHIN PERMISSIVE HYPERTENSION RANGE. ST 100-120's w/ BBB. SpO2> 92% 1L VIA NC, NO S/S OF RESPIRATORY DISTRESS. PT WITH 1 SMALL INCONTINENT VOID THIS SHIFT, BLADDER SCAN AT 0450 SHOWED APPROXIMATELY 115mLs IN BLADDER. ATTENDS IN PLACE, NO BM THIS SHIFT. EEG DONE AT START OF SHIFT. ORAL CARE WITH SUCTION PRVIDED Q4. Q2 TURNS DONE. NO OTHER EVENTS, WILL REPORT TO ONCOMING RN.
--- NOTE | 2022-12-07 09:24 | NUR ---
care assumption/dialysis this rn assumed care at 0700. vital signs stable. tele sr bbb 100s. patient is alert. patient unable to tell me where she is at verbally, but this rn listed places, home, grocery store, assisted living, hosital, and patient nodded head yes to hospital. patient able to say yes and no and occasionally other words. on our way to dialysis, where is she going and this rn informed she was going to the dialysis room. patient nodded in understanding. patient worked with speech therpay and able to follow commands. patient did not follow commands to squeze this rn hands with her hands and push up on her hands from her legs. perrla. patient reports no pain, chest pain/pressure, or shortness of breath. see shift assessment for further detials. md in room and discussed plan of care.
--- NOTE | 2022-12-07 11:46 | NUR ---
RETURN FROM DIALYSIS patient back from dialysis. dialysis stopped early per wound care rn.
--- NOTE | 2022-12-07 17:51 | NUR ---
SHIFT SUMMARY patient neuro reamains unchaged. patient ate 80% of lunch and 60% of dinner. patient had one full nephro and a half today. turbine subassembler acute changes. vitals stable. call light within reach
[2022-12-08 03:38] VITALS: BP 149/77
[2022-12-08 04:00] LABS: Hematocrit 40.6 % (33.0-51.0); Hemoglobin 12.7 g/dL (11.5-16.0)
--- NOTE | 2022-12-08 04:06 | NUR ---
SHIFT SUMMARY PT IS A&OX2-3. SHE HAS BEEN FOLLOWING MOST QUESTIONS APPROPRIATELY AND IS JUST SLOW TO SPEAK. HER HR HAS BEEN ST 120 S ON TELE AND BP IS STABLE. SHE HAS DENIED ANY PAIN, BUT SHE DOES GROAN WHEN WE REPOSITION HER. WHEN ASKED AGAIN ABOUT HER PAIN SHE SAYS SHE HAS NONE. SHE HAS BEEN A Q2 TURN, AND HAS BEEN INC OF URINE AND BOWEL. THE PT HAS BEEN WITHDRAWN. SHE IS ON 1-2L NC TO MAINTAIN SP02 >88%. NO ACUTE EVENTS. FIRE IGNITION RISK HAS BEEN ASSESSED. SEE NOTES FOR ANY UPDATES.
[2022-12-08 04:12] LABS: Albumin, Blood 3.2 g/dL (3.4-5.0); Anion Gap 12 mmol/L (6-16); Blood Urea Nitrogen 62 mg/dL (8-24); CO2, Blood 29 mmol/L (21-32); Calcium, Blood 9.3 mg/dL (8.5-10.1); Chloride, Blood 93 mmol/L (98-108); Creatinine, Blood 7.77 mg/dL (0.40-1.00); Glomerular Filtration Rate 5 (60-); Glucose, Blood 193 mg/dL (70-99); Magnesium, Blood 2.8 mg/dL (1.6-2.4); Phosphorus, Blood 6.3 mg/dL (2.5-4.9); Potassium, Blood 4.1 mmol/L (3.5-5.5); Sodium, Blood 134 mmol/L (136-145)
--- NOTE | 2022-12-08 04:45 | NUR ---
UPDATE ASSUMING CARE OF PT. THIS RN AGREES WITH PREVIOUS RN'S ASSESSMENT.
--- NOTE | 2022-12-08 06:36 | NUR ---
ASSUMPTION OF CARE/SHIFT SUMMARY PT ALERT AND ORIENTED X 2-3. KNOWS NAME,LOCATION BUT NOT YEAR. REPEATS QUESTIONS FREQUENTLY. ABLE TO MAKE NEEDS KNOWN. REPORTED PAIN IN R SHOULDER AND REQUESTED IV PAIN MEDICATION. MEDICATED,SEE EMAR. NO CP OR PRESSURE REPORTED. PT REPOSITIONED Q 2 TURNS. TOLERATED THIN LIQUIDS WELL. CALL LIGHT WITHIN REACH.
[2022-12-08 07:00] VITALS: BP 156/79
[2022-12-08 07:30] VITALS: BP 143/75
[2022-12-08 11:12] VITALS: BP 144/73
--- NOTE | 2022-12-08 11:32 | NUR ---
[place] [facility] [place] NOTIFIED, NEW ORDERS RECEIVED.
--- NOTE | 2022-12-08 15:45 | NUR ---
TRANSFER: PT TRANSFERRED TO [place] [id number] VIA BED. REPORT GIVEN TO JOVANNI GRADY. ALL BELONGINGS WITH PT. PT SISTER MIKE NOTIFIED OF ROOM CHANGE.
[2022-12-08 16:09] VITALS: BP 152/81
--- NOTE | 2022-12-08 16:44 | NUR ---
PT TRANSFERED FROM PCU. VITALS ARE CONSISTANT WITH REPORT AND PAST FEW DAYS. DR. AGUDELO NOTIFIED OF HR 121 AND BP 152/81. PER DR. AGUDELO PT HAS AV BLOCK. HR CAN NOT BE TREATED. PRN IS AVALIABLE FOR SBP>180. ALSO NOTIFIED MD OF PT "TWITCHING" TO ESTABLISH BASELINE. PER DR. AGUDELO, SHE WILL DISCUSS WITH CARE TEAM. DR. AGUDELO WOULD LIKE US TO MONITOR ALERTNESS AFTER NEXT DOSE OF PO KEPPRA AND REPORT TO HER IF SHE BECOMES OVERLY DROWSY. PT IS ALERT AND ORIENTED X3. UNCLEAR OF DATE. BEDREST.
--- NOTE | 2022-12-08 17:43 | NUR ---
PT IS EXPERIENCING SEVERE PAIN IN THE LEFT SHOULDER WHEN CHANGED POSTIONS. TREATED PER EMAR.
[2022-12-08 19:27] VITALS: BP 153/55
[2022-12-09] VITALS (17 sets, daily range): BP systolic 80–189; BP diastolic 47–93
--- NOTE | 2022-12-09 07:11 | NUR ---
NOC SHIFT SUMMARY BLOOD SUGARS CONTINUE TO BE IN THE 200'S. FENTANYL GIVEN ONCE. A&O TO PERSON AND PLACE. TELE WITH AV BLOCK. MD AWARE. TOOK PROTONIX WHOLE IN APPLESAUCE. PATIENT WAS ABLE TO DO SWISH AND SPIT.
[2022-12-09 07:12] LABS: Magnesium, Blood 2.8 mg/dL (1.6-2.4)
[2022-12-09 07:24] LABS: Albumin, Blood 3.1 g/dL (3.4-5.0); Anion Gap 8 mmol/L (6-16); Blood Urea Nitrogen 85 mg/dL (8-24); CO2, Blood 30 mmol/L (21-32); Calcium, Blood 9.5 mg/dL (8.5-10.1); Chloride, Blood 93 mmol/L (98-108); Glucose, Blood 227 mg/dL (70-99); Phosphorus, Blood 5.5 mg/dL (2.5-4.9); Potassium, Blood 5.5 mmol/L (3.5-5.5); Sodium, Blood 131 mmol/L (136-145)
[2022-12-09 07:27] LABS: Bun/Creatinine Ratio 9.1 (12.0-20.0); Creatinine, Blood 9.32 mg/dL (0.40-1.00); Glomerular Filtration Rate 4 (60-)
--- NOTE | 2022-12-09 12:03 | NUR ---
ATTEMPTED TO GIVE PO MEDICATION. PT UPSET AND REFUSING TO TAKE A BITE TO TAKE MEDICAITONS. DR. RIOS NOTIFIED. NO NEW ORDERS AT THIS TIME.
--- NOTE | 2022-12-09 12:57 | NUR ---
PT RESPONDING TO STIMULI. UNABLE TO STAY AWAKE. DR. RIOS AT BEDSIDE. PER MD. DO NOT GIVE SEDATIVES FOR TIME BEING.
--- NOTE | 2022-12-09 17:53 | NUR ---
PT HAS BEEN RESPONSIVE TO PHYSICAL STIMULI. OPENS EYES AND SAYS 2-3 WORDS AND THEN FALLS BACK ASLEEP. ABLE TO VERBALIZE NEED TO HAVE BM. BEDREST WITH BED SOUZA. PT DID NOT WAKE FOR FOOD AND WAS UNSAFE TO ADMINISTER MEDICAITONS. AWARE. DISCUSSED PT CONDITION WITH DAUGHTER. DIALYSIS TODAY. BED IS IN THE LOWEST POSITION WITH CALL LIGHT IN REACH AND BED ALARM ON. UNABLE TO EXPRESS NEEDS.
[2022-12-10 03:29] VITALS: BP 141/69
--- NOTE | 2022-12-10 06:47 | NUR ---
NOC SHIFT SUMMARY PATIENT AWAKE AND ALERT TO SELF. PATIENT WAS ABLE TO TAKE HER MEDICATIONS WITHOUT DIFFICULTY. BLOOD SUGAR THIS AM 128, NO COVERAGE NEEDED. FISTULA WITH POSITIVE BRUIT AND THRILL. PATIENT MOVES SELF IN BED. PATIENT IS BEDREST.
[2022-12-10 07:11] LABS: Hematocrit 40.6 % (33.0-51.0)
[2022-12-10 07:18] LABS: Albumin, Blood 3.2 g/dL (3.4-5.0); Anion Gap 8 mmol/L (6-16); Blood Urea Nitrogen 53 mg/dL (8-24); CO2, Blood 33 mmol/L (21-32); Calcium, Blood 9.5 mg/dL (8.5-10.1); Chloride, Blood 95 mmol/L (98-108); Creatinine, Blood 6.65 mg/dL (0.40-1.00); Glomerular Filtration Rate 6 (60-); Glucose, Blood 129 mg/dL (70-99); Magnesium, Blood 2.7 mg/dL (1.6-2.4); Phosphorus, Blood 5.2 mg/dL (2.5-4.9); Potassium, Blood 4.4 mmol/L (3.5-5.5); Sodium, Blood 136 mmol/L (136-145)
[2022-12-10 07:20] VITALS: BP 140/67
--- NOTE | 2022-12-10 09:37 | NUR ---
PT HAS BEEN ALERT AND ORIENTED X2-3 REPORTS BEING VERY TIRED AND WANTING TO SLEEP. I WAS ABLE TO SAFELY ADMINISTER MEDICATIONS THIS MORNING AND PT ATE SOME APPLESAUCE AND PUDDING.
[2022-12-10 15:13] VITALS: BP 133/73
--- NOTE | 2022-12-10 18:20 | NUR ---
SHIFT SUMMARY PT APPEARS TO BE MORE ALERT AND ORIENTED THIS SHIFT. PO INTAKE IS STILL POOR. TREATED PAIN WITH TYLENOL. ASKING WHEN SHE WILL BE GOING HOME. BED IS IN THE LOWEST POSITION WITH CALL LIGHT IN REACH. PT IS NOT ABLE TO MAKE NEEDS KNOWN.
[2022-12-10 19:35] VITALS: BP 137/103
[2022-12-11] VITALS (12 sets, daily range): BP systolic 65–153; BP diastolic 40–81
--- NOTE | 2022-12-11 07:41 | NUR ---
PATIENT TOOK MEDS IN APPLESAUCE WITH NO ISSUES. SHE DID DEVELOP DRY COUGH THIS AM AROUND 0200. LUNGS CONTINUE TO BE CLEAR. BED ALARM ON. CALL LIGHT IN REACH.
[2022-12-11 07:57] LABS: BASOPHILS ABSOLUTE AUTO 0.04 K/mm3 (0.00-0.23); BASOPHILS PERCENT AUTO 1 % (0-2); EOSINOPHILS ABSOLUTE AUTO 0.29 K/mm3 (0.00-0.68); EOSINOPHILS PERCENT AUTO 3 % (0-6); Hematocrit 40.1 % (33.0-51.0); Hemoglobin 12.7 g/dL (11.5-16.0); IMMATURE GRAN ABSOLUTE AUTO 0.04 K/mm3 (0.00-0.10); IMMATURE GRAN PERCENT AUTO 1 % (0-1); LYMPHOCYTES ABSOLUTE AUTO 1.13 K/mm3 (0.84-5.20); LYMPHOCYTES PERCENT AUTO 13 % (21-46); MONOCYTES ABSOLUTE AUTO 1.03 K/mm3 (0.16-1.47); MONOCYTES PERCENT AUTO 12 % (4-13); Mean Corpuscular HGB Conc 31.7 g/dL (31.5-36.5); Mean Corpuscular Volume 89 fL (80-100); Mean Platelet Volume 9.9 fL (9.1-12.4); NEUTROPHILS ABSOLUTE AUTO 6.03 K/mm3 (1.96-9.15); NEUTROPHILS PERCENT AUTO 70 % (41-73); Platelet Count 264 K/mm3 (150-400); RDW Coefficient Variation 15.6 % (11.7-14.2); RDW Standard Deviation 50.6 fL (35.1-46.3); Red Blood Cell Count 4.53 M/mm3 (3.80-5.20); White Blood Cell Count 8.56 K/mm3 (4.00-11.30)
[2022-12-11 08:19] LABS: Magnesium, Blood 2.9 mg/dL (1.6-2.4)
[2022-12-11 09:04] LABS: Anion Gap 10 mmol/L (6-16); Blood Urea Nitrogen 80 mg/dL (8-24); Bun/Creatinine Ratio 9.7 (12.0-20.0); CO2, Blood 32 mmol/L (21-32); Calcium, Blood 9.3 mg/dL (8.5-10.1); Chloride, Blood 92 mmol/L (98-108); Creatinine, Blood 8.24 mg/dL (0.40-1.00); Glomerular Filtration Rate 5 (60-); Glucose, Blood 165 mg/dL (70-99); Phosphorus, Blood 5.2 mg/dL (2.5-4.9); Potassium, Blood 4.8 mmol/L (3.5-5.5); Sodium, Blood 134 mmol/L (136-145)
[2022-12-11 09:44] LABS: Albumin, Blood 3.1 g/dL (3.4-5.0); Albumin/Globulin Ratio 0.8 (0.8-1.8); Alk Phos 96 U/L (50-136); Anion Gap 11 mmol/L (6-16); Aspartate Aminotrans (AST/SGOT 17 U/L (12-37); Bilirubin, Total 0.3 mg/dL (0.1-1.0); Blood Urea Nitrogen 79 mg/dL (8-24); CO2, Blood 30 mmol/L (21-32); Calcium, Blood 9.4 mg/dL (8.5-10.1); Chloride, Blood 92 mmol/L (98-108); Globulin, Blood 4.1 g/dL (2.2-4.0); Glucose, Blood 165 mg/dL (70-99); Potassium, Blood 4.8 mmol/L (3.5-5.5); Sodium, Blood 133 mmol/L (136-145); Total Protein, Blood 7.2 g/dL (6.4-8.2)
[2022-12-11 09:46] LABS: Alanine Aminotransfer (ALT/SGP <6 U/L (12-78); Bun/Creatinine Ratio 9.5 (12.0-20.0); Creatinine, Blood 8.34 mg/dL (0.40-1.00); Glomerular Filtration Rate 5 (60-)
--- NOTE | 2022-12-11 17:30 | NUR ---
SHIFT SUMMARY- PT WENT FOR DIALYSIS THIS SHIFT, HAD TO END THE SESSION EARLY DUE TO LOW BLOOD PRESSURES. HER CREATININE WAS 8.24 THIS SHIFT. SHE SLEPT INTERMITENTLY THROUGHOUT THIS SHIFT. HER APPETITE WAS POOR. SHE WORKED WITH PT THIS SHIFT AND TOLORATED WELL. HER BED IS IN THE LOW POSITON AND CALL LIGHT IS WITIN REACH.
[2022-12-12 02:51] VITALS: BP 147/69
[2022-12-12 05:16] LABS: Hematocrit 38.5 % (33.0-51.0); Hemoglobin 12.3 g/dL (11.5-16.0)
--- NOTE | 2022-12-12 05:27 | NUR ---
SUMMARY: PT A/OX2-3 BUT MENTATION FLUCTUATES AND SHE BECOMES FORGETFULL AT TIMES. SHE SLEPT MAJORITY OF NOCTE BUT AWOKE BRIEFLY FOR MEDS AND CARE. PT REPOSITIONS SELF IN BED AND IS UP W/ASSIST D/T HX CVA AND FALL RISK. BED ALARM ON FOR POSSIBLE IMPULSIVITY. THRILL AND BRUITS INTACT TO FISTULA. CBG'S IMPROVED T/O NOCTE, SCHEDULED INSULIN AND COVERAGE REQ'D. TYLENOL RECEIVED FOR TOLERABLE RELIEF OF R.SHOULDER PAIN. PT HAS BBB ON TELE AT 80'-100'S BPM. NO ACUTE CHANGES, VSS/AFEBRILE. WCTM AND REPORT TO DAY RN.
[2022-12-12 05:42] LABS: Albumin, Blood 3.1 g/dL (3.4-5.0); Anion Gap 10 mmol/L (6-16); Blood Urea Nitrogen 72 mg/dL (8-24); CO2, Blood 32 mmol/L (21-32); Chloride, Blood 93 mmol/L (98-108); Creatinine, Blood 7.99 mg/dL (0.40-1.00); Glomerular Filtration Rate 5 (60-); Glucose, Blood 125 mg/dL (70-99); Magnesium, Blood 2.9 mg/dL (1.6-2.4); Phosphorus, Blood 4.1 mg/dL (2.5-4.9); Potassium, Blood 4.7 mmol/L (3.5-5.5); Sodium, Blood 135 mmol/L (136-145)
[2022-12-12 08:00] VITALS: BP 147/89
[2022-12-12 15:08] VITALS: BP 144/75
--- NOTE | 2022-12-12 18:12 | NUR ---
MENTATION AND INTERACTIONS MORE ALERT, TALKING WITH STAFF, ASKING FOR THE BATHROOM, WORKED WITH PT/OT, TO HAVE DIALYSIS TOMORROW, +BRUIT, INCREASED APPETITE TODAY, SS INSULIN CHANGED TO [facility], COMMUNITY PALLIATIVE NURSE ROUNDED ON PATIENT, SISTER RADHA IN [place] IS POA, RADHA HAS NO PLANS OF COMING TO VISIT PATIENT BUT WILL CALL FOR UPDATES. LARGE BM TODAY, CONTINUES TO PULL TELE LEADS OFF, SATS 96% ON RA, DENIES PAIN OR NV, ALERT AND ORIENTED 2-3, VERY FORGETFUL AND GRANDIOUSE COMMENTS AT TIMES, WILL RELAY TO PM RN
[2022-12-12 19:51] VITALS: BP 141/51
[2022-12-13] VITALS (14 sets, daily range): BP systolic 91–178; BP diastolic 39–88
--- NOTE | 2022-12-13 06:24 | NUR ---
SUMMARY: PT A/OX2-3 BUT IS FORGETFULL AT TIMES W/BED ALARM ON FOR FALL RISK. MENTATION, ORIENTATION AND R.FACIAL DROOP WAXES AND WANES BUT NO NEW DEFICITYS OBSERVED AND REMINDERS PROVIDED PRN. TYLENOL RECEIVED FOR TOLERABLE RELIEF OF R.SHOULDER PAIN. TELE D/C'D D/T NO CHANGES AND PT REMOVING PATCHES FREQUENTLY T/O NOCTE, SHE WAS BBB AT 80'S BPM PRIOR. THRILLS AND BRUITS INTACT TO FISTULA AND PT TO HAVE DIALYSIS TODAY. NO ACUTE CHANGS, VSS/AFEBRILE. POSSIBLE D/C TO [facility]. WCTM AND REPORT TO DAY RN.
[2022-12-13 06:47] LABS: Hemoglobin 11.9 g/dL (11.5-16.0)
[2022-12-13 07:09] LABS: Magnesium, Blood 3.1 mg/dL (1.6-2.4)
[2022-12-13 07:16] LABS: Alanine Aminotransfer (ALT/SGP 9 U/L (12-78); Albumin, Blood 3.1 g/dL (3.4-5.0); Albumin/Globulin Ratio 0.8 (0.8-1.8); Alk Phos 93 U/L (50-136); Anion Gap 8 mmol/L (6-16); Aspartate Aminotrans (AST/SGOT 55 U/L (12-37); Bilirubin, Total 0.3 mg/dL (0.1-1.0); Blood Urea Nitrogen 85 mg/dL (8-24); Bun/Creatinine Ratio 9.4 (12.0-20.0); CO2, Blood 29 mmol/L (21-32); Calcium, Blood 10.7 mg/dL (8.5-10.1); Chloride, Blood 93 mmol/L (98-108); Creatinine, Blood 9.02 mg/dL (0.40-1.00); Globulin, Blood 4.1 g/dL (2.2-4.0); Glomerular Filtration Rate 4 (60-); Glucose, Blood 176 mg/dL (70-99); Phosphorus, Blood 4.1 mg/dL (2.5-4.9); Potassium, Blood 5.4 mmol/L (3.5-5.5); Sodium, Blood 130 mmol/L (136-145); Total Protein, Blood 7.2 g/dL (6.4-8.2)
--- NOTE | 2022-12-13 07:56 | NUR ---
PATIENT TO DIALYSIS VIA BED, [facility]IT[facility] 9.02, DR GUO NOTIFIED [facility], COVERED PATIENT BS [id number], HELD AM MEDICATIONS FOR AFTER DIALYSIS.
[2022-12-13] MEDS ORDERED: ASPI81CH PO (10:00)
[2022-12-13] MEDS ORDERED: LEVE500 PO (10:04)
[2022-12-13] MEDS ORDERED: METO25 PO (10:06)
[2022-12-13 14:42] LABS: Influenza A, PCR NEGATIVE (NEGATIVE); Influenza B, PCR NEGATIVE (NEGATIVE); Resp Syncytial Virus, PCR NEGATIVE (NEGATIVE); SARS-Cov-2 (COVID-19) PCR, MMC NEGATIVE (NEGATIVE)
--- NOTE | 2022-12-13 17:06 | NUR ---
1700 DISCHARGED VIA W/C, TRANSPORT COMPANY TAKING PATIENT TO [facility]
--- NOTE | 2022-12-13 20:36 | NUR ---
REVIEWED PT'S INFORMATION R/T QUESTIONS FROM U/V R/T DISCH MEDS
== END 2022-12-13 16:59 | DRG 64 ==
LOC: ER 21:49 → MEDS 21:50 → PCU 21:50 → MEDS 12-04 01:42 → PCU 12-04 08:45 → MEDS 12-04 10:44 → PCU 12-04 10:44 → MEDS 12-08 15:15 → ENPENDDIS 12-13 11:06 → MEDS 12-13 16:59
PROVIDERS: Emergency Medicine; Family Medicine; Internal Medicine; Internal Medicine Nephrology; Student in an Organized Health Care Education/Training Program; ADMIT Student in an Organized Health Care Education/Training Program
PROC: 0DH67UZ Insertion of Feeding Device into Stomach, Via Natural or Artificial Opening (ICD-10-PCS; 2022-12-04)
PROC: 5A1D70Z Performance of Urinary Filtration, Intermittent, Less than 6 Hours Per Day (ICD-10-PCS; principal; 2022-12-07)
DX: I63.9 Cerebral infarction, unspecified (principal); G92.8 Other toxic encephalopathy; J96.01 Acute respiratory failure with hypoxia; N18.6 End stage renal disease; I44.2 Atrioventricular block, complete; E22.1 Hyperprolactinemia; F11.20 Opioid dependence, uncomplicated; G81.94 Hemiplegia, unspecified affecting left nondominant side; I16.1 Hypertensive emergency; B19.10 Unspecified viral hepatitis B without hepatic coma; N25.81 Secondary hyperparathyroidism of renal origin; I13.2 Hypertensive heart and chronic kidney disease with heart failure and with stage 5 chronic kidney disease, or end stage renal disease; I47.20 Ventricular tachycardia, unspecified; E87.1 Hypo-osmolality and hyponatremia; B37.0 Candidal stomatitis; Z66 Do not resuscitate; Z51.5 Encounter for palliative care; J44.9 Chronic obstructive pulmonary disease, unspecified; E11.65 Type 2 diabetes mellitus with hyperglycemia; E78.5 Hyperlipidemia, unspecified; E66.9 Obesity, unspecified; G20.C Parkinsonism, unspecified; E11.22 Type 2 diabetes mellitus with diabetic chronic kidney disease; G89.29 Other chronic pain; R47.81 Slurred speech; R29.703 NIHSS score 3; I65.23 Occlusion and stenosis of bilateral carotid arteries; I05.0 Rheumatic mitral stenosis; I44.1 Atrioventricular block, second degree; R56.9 Unspecified convulsions; Z20.822 Contact with and (suspected) exposure to COVID-19; D63.1 Anemia in chronic kidney disease; K21.9 Gastro-esophageal reflux disease without esophagitis; G25.81 Restless legs syndrome; F41.9 Anxiety disorder, unspecified; R29.810 Facial weakness; I50.9 Heart failure, unspecified; E87.70 Fluid overload, unspecified; E66.3 Overweight; F17.210 Nicotine dependence, cigarettes, uncomplicated; E86.9 Volume depletion, unspecified; E88.09 Other disorders of plasma-protein metabolism, not elsewhere classified; E83.41 Hypermagnesemia; E87.5 Hyperkalemia; E86.1 Hypovolemia; Z88.8 Allergy status to other drugs, medicaments and biological substances; Z91.158 Patient's noncompliance with renal dialysis for other reason; Z99.2 Dependence on renal dialysis; Z86.73 Personal history of transient ischemic attack (TIA), and cerebral infarction without residual deficits; Z68.25 Body mass index [BMI] 25.0-25.9, adult; Z90.49 Acquired absence of other specified parts of digestive tract; Z98.890 Other specified postprocedural states; Z87.19 Personal history of other diseases of the digestive system; Z79.899 Other long term (current) drug therapy; Z79.4 Long term (current) use of insulin
CPT/HCPCS: 0241U; 36415; 70450; 70496; 70498; 70551; 71045; 80048; 80053; 80061; 80069; 82140; 82330; 82947; 83036; 83735; 84146; 84443; 84484; 85014; 85018; 85025; 85610; 85730; 92526; 92610; 93005; 93010; 93306; 94640; 94664; 94760; 94762; 95819; 96374-59; 96375; 96375-59; 97110; 97112; 97162; 97166; 97530; 97535; 99285-25; A9270; G0378; J0360; J1644; J1790; J1815; J1953; J2060; J2405; J2765; J3010; J7030; J7050; J7120; Q9967

== ENCOUNTER 2023-04-01 13:00 | Inpatient (IN) | payer MEDICARE ==
[2023-04-01] VITALS (13 sets, daily range): BP systolic 88–135; BP diastolic 41–74
[~2023-04-01] VITALS: Ht 160 cm; Wt 80.5 kg
[~2023-04-01 13:00] MED LIST changes: +DICLOFENAC SODI50 GM TOP; +LEVE500 PO; +LOSA25 PO
[2023-04-01 13:35] LABS: BASOPHILS ABSOLUTE AUTO 0.02 K/mm3 (0.00-0.23); BASOPHILS PERCENT AUTO 0 % (0-2); EOSINOPHILS ABSOLUTE AUTO 0.14 K/mm3 (0.00-0.68); EOSINOPHILS PERCENT AUTO 2 % (0-6); IMMATURE GRAN ABSOLUTE AUTO 0.04 K/mm3 (0.00-0.10); IMMATURE GRAN PERCENT AUTO 1 % (0-1); LYMPHOCYTES ABSOLUTE AUTO 0.84 K/mm3 (0.84-5.20); LYMPHOCYTES PERCENT AUTO 14 % (21-46); MONOCYTES ABSOLUTE AUTO 0.46 K/mm3 (0.16-1.47); MONOCYTES PERCENT AUTO 7 % (4-13); Mean Corpuscular HGB 30.1 pg (26.0-34.0); Mean Corpuscular HGB Conc 31.3 g/dL (31.5-36.5); Mean Corpuscular Volume 96 fL (80-100); Mean Platelet Volume 9.3 fL (9.1-12.4); NEUTROPHILS ABSOLUTE AUTO 4.73 K/mm3 (1.96-9.15); NEUTROPHILS PERCENT AUTO 76 % (41-73); Platelet Count 195 K/mm3 (150-400); RDW Coefficient Variation 18.3 % (11.7-14.2); RDW Standard Deviation 64.6 fL (35.1-46.3); Red Blood Cell Count 1.66 M/mm3 (3.80-5.20); White Blood Cell Count 6.23 K/mm3 (4.00-11.30)
[2023-04-01 13:56] LABS: Albumin, Blood 2.7 g/dL (3.4-5.0); Albumin/Globulin Ratio 0.9 (0.8-1.8); Bilirubin, Total 0.2 mg/dL (0.1-1.0); Bun/Creatinine Ratio 13.6 (12.0-20.0); Calcium, Blood 7.7 mg/dL (8.5-10.1); Creatinine, Blood 5.3 mg/dL (0.40-1.00); Globulin, Blood 3.1 g/dL (2.2-4.0); Magnesium, Blood 2.4 mg/dL (1.6-2.4); Potassium, Blood 5.3 mmol/L (3.5-5.5); Total Protein, Blood 5.8 g/dL (6.4-8.2)
[2023-04-01 21:46] LABS: Hemoglobin 6.3 g/dL (11.5-16.0)
[2023-04-02] VITALS (59 sets, daily range): BP systolic 95–154; BP diastolic 33–98
[2023-04-02] MEDS ORDERED: LEVE500 PO (00:53)
[2023-04-02] MEDS ORDERED: ROPI1 PO (01:00)
[2023-04-02] MEDS ORDERED: ACET500 PO (01:08)
[2023-04-02 04:28] LABS: Mean Corpuscular HGB 30.9 pg (26.0-34.0); Mean Corpuscular HGB Conc 33.1 g/dL (31.5-36.5); Mean Corpuscular Volume 93 fL (80-100); Mean Platelet Volume 9.6 fL (9.1-12.4); NRBC ABSOLUTE 0.02 K/mm3 (0.00-0.02); NRBC Auto 0.3 /100 WBC (0.0-0.2); Platelet Count 160 K/mm3 (150-400); RDW Coefficient Variation 16.4 % (11.7-14.2); RDW Standard Deviation 54.4 fL (35.1-46.3); Red Blood Cell Count 1.88 M/mm3 (3.80-5.20); White Blood Cell Count 6.54 K/mm3 (4.00-11.30)
[2023-04-02 04:30] LABS: Hematocrit 17.5 % (33.0-51.0); Hemoglobin 5.8 g/dL (11.5-16.0)
[2023-04-02 04:47] LABS: Albumin, Blood 2.3 g/dL (3.4-5.0); Anion Gap 7 mmol/L (6-16); Blood Urea Nitrogen 94 mg/dL (8-24); Bun/Creatinine Ratio 14.7 (12.0-20.0); CO2, Blood 29 mmol/L (21-32); Calcium, Blood 7.2 mg/dL (8.5-10.1); Chloride, Blood 105 mmol/L (98-108); Creatinine, Blood 6.39 mg/dL (0.40-1.00); Glomerular Filtration Rate 6 (60-); Glucose, Blood 163 mg/dL (70-99); Magnesium, Blood 2.3 mg/dL (1.6-2.4); Phosphorus, Blood 3.7 mg/dL (2.5-4.9); Potassium, Blood 4.7 mmol/L (3.5-5.5); Sodium, Blood 141 mmol/L (136-145)
[2023-04-02 09:01] LABS: Stool Occult Bld Immuno 1 Positive (NEGATIVE)
[2023-04-02 17:59] LABS: Bun/Creatinine Ratio 14.2 (12.0-20.0); Calcium, Blood 7.9 mg/dL (8.5-10.1); Creatinine, Blood 4.8 mg/dL (0.40-1.00); Potassium, Blood 4.2 mmol/L (3.5-5.5)
[2023-04-02 18:09] LABS: BASOPHILS ABSOLUTE AUTO 0.04 K/mm3 (0.00-0.23); BASOPHILS PERCENT AUTO 0 % (0-2); EOSINOPHILS ABSOLUTE AUTO 0.21 K/mm3 (0.00-0.68); EOSINOPHILS PERCENT AUTO 2 % (0-6); Hematocrit 24.3 % (33.0-51.0); Hemoglobin 8.3 g/dL (11.5-16.0); IMMATURE GRAN ABSOLUTE AUTO 0.05 K/mm3 (0.00-0.10); IMMATURE GRAN PERCENT AUTO 1 % (0-1); LYMPHOCYTES PERCENT AUTO 13 % (21-46); MONOCYTES ABSOLUTE AUTO 0.63 K/mm3 (0.16-1.47); MONOCYTES PERCENT AUTO 7 % (4-13); Mean Corpuscular HGB 29.5 pg (26.0-34.0); Mean Corpuscular HGB Conc 34.2 g/dL (31.5-36.5); Mean Platelet Volume 9.7 fL (9.1-12.4); NEUTROPHILS ABSOLUTE AUTO 7.48 K/mm3 (1.96-9.15); NEUTROPHILS PERCENT AUTO 78 % (41-73); Platelet Count 134 K/mm3 (150-400); RDW Coefficient Variation 18.3 % (11.7-14.2); RDW Standard Deviation 57.3 fL (35.1-46.3); Red Blood Cell Count 2.81 M/mm3 (3.80-5.20); White Blood Cell Count 9.61 K/mm3 (4.00-11.30)
[2023-04-02 18:20] LABS: Mean Corpuscular Volume 87 fL (80-100)
[2023-04-03] VITALS (38 sets, daily range): BP systolic 81–133; BP diastolic 30–70
[2023-04-03 03:27] LABS: Hematocrit 24.6 % (33.0-51.0); Hemoglobin 8.4 g/dL (11.5-16.0)
[2023-04-03 03:45] LABS: Albumin, Blood 2.2 g/dL (3.4-5.0); Anion Gap 7 mmol/L (6-16); Blood Urea Nitrogen 84 mg/dL (8-24); Bun/Creatinine Ratio 14.9 (12.0-20.0); CO2, Blood 27 mmol/L (21-32); Calcium, Blood 7.6 mg/dL (8.5-10.1); Chloride, Blood 103 mmol/L (98-108); Creatinine, Blood 5.64 mg/dL (0.40-1.00); Glomerular Filtration Rate 7 (60-); Glucose, Blood 211 mg/dL (70-99); Magnesium, Blood 1.9 mg/dL (1.6-2.4); Potassium, Blood 5.3 mmol/L (3.5-5.5); Sodium, Blood 137 mmol/L (136-145)
[2023-04-04] VITALS (17 sets, daily range): BP systolic 99–156; BP diastolic 33–75
[2023-04-04 04:39] LABS: Hematocrit 21.5 % (33.0-51.0); Mean Corpuscular HGB 29.2 pg (26.0-34.0); Mean Corpuscular HGB Conc 32.6 g/dL (31.5-36.5); Mean Corpuscular Volume 90 fL (80-100); Mean Platelet Volume 9.7 fL (9.1-12.4); Platelet Count 145 K/mm3 (150-400); RDW Coefficient Variation 18.4 % (11.7-14.2)
[2023-04-04 04:58] LABS: Albumin, Blood 2.2 g/dL (3.4-5.0); Anion Gap 4 mmol/L (6-16); Blood Urea Nitrogen 47 mg/dL (8-24); Bun/Creatinine Ratio 10.8 (12.0-20.0); CO2, Blood 34 mmol/L (21-32); Calcium, Blood 8.8 mg/dL (8.5-10.1); Chloride, Blood 100 mmol/L (98-108); Creatinine, Blood 4.35 mg/dL (0.40-1.00); Glomerular Filtration Rate 10 (60-); Glucose, Blood 168 mg/dL (70-99); Phosphorus, Blood 4.9 mg/dL (2.5-4.9); Potassium, Blood 4.2 mmol/L (3.5-5.5); Sodium, Blood 138 mmol/L (136-145)
[2023-04-04 13:27] LABS: BASOPHILS ABSOLUTE AUTO 0.02 K/mm3 (0.00-0.23); BASOPHILS PERCENT AUTO 0 % (0-2); EOSINOPHILS ABSOLUTE AUTO 0.19 K/mm3 (0.00-0.68); EOSINOPHILS PERCENT AUTO 3 % (0-6); Hematocrit 21.5 % (33.0-51.0); IMMATURE GRAN ABSOLUTE AUTO 0.03 K/mm3 (0.00-0.10); IMMATURE GRAN PERCENT AUTO 0 % (0-1); LYMPHOCYTES PERCENT AUTO 8 % (21-46); MONOCYTES ABSOLUTE AUTO 0.43 K/mm3 (0.16-1.47); MONOCYTES PERCENT AUTO 6 % (4-13); Mean Corpuscular HGB 29.5 pg (26.0-34.0); Mean Corpuscular HGB Conc 32.6 g/dL (31.5-36.5); Mean Corpuscular Volume 91 fL (80-100); Mean Platelet Volume 9.5 fL (9.1-12.4); NEUTROPHILS ABSOLUTE AUTO 6.38 K/mm3 (1.96-9.15); NEUTROPHILS PERCENT AUTO 83 % (41-73); Platelet Count 148 K/mm3 (150-400); RDW Coefficient Variation 18.2 % (11.7-14.2); RDW Standard Deviation 59.1 fL (35.1-46.3); Red Blood Cell Count 2.37 M/mm3 (3.80-5.20); White Blood Cell Count 7.65 K/mm3 (4.00-11.30)
[2023-04-05] VITALS (19 sets, daily range): BP systolic 115–181; BP diastolic 35–71
[2023-04-05 04:16] LABS: Hematocrit 21.7 % (33.0-51.0); Hemoglobin 6.9 g/dL (11.5-16.0)
[2023-04-05 04:44] LABS: Albumin, Blood 2.1 g/dL (3.4-5.0); Anion Gap 6 mmol/L (6-16); Blood Urea Nitrogen 65 mg/dL (8-24); Bun/Creatinine Ratio 9.9 (12.0-20.0); CO2, Blood 32 mmol/L (21-32); Calcium, Blood 8.6 mg/dL (8.5-10.1); Chloride, Blood 102 mmol/L (98-108); Creatinine, Blood 6.59 mg/dL (0.40-1.00); Glomerular Filtration Rate 6 (60-); Glucose, Blood 147 mg/dL (70-99); Magnesium, Blood 2.3 mg/dL (1.6-2.4); Phosphorus, Blood 6.3 mg/dL (2.5-4.9); Potassium, Blood 4.4 mmol/L (3.5-5.5); Sodium, Blood 140 mmol/L (136-145)
[2023-04-05] MEDS ORDERED: SENN187 PO (12:50)
[2023-04-05] MEDS ORDERED: LOPE2C PO (12:50)
[2023-04-05] MEDS ORDERED: NEPHRO VITAMIN0.8 MG PO (12:54)
[2023-04-05] MEDS ORDERED: CALCIUM CARBON500 M4 PO (13:00)
[2023-04-06] VITALS (11 sets, daily range): BP systolic 118–164; BP diastolic 38–82
[2023-04-06 04:41] LABS: Hematocrit 25.9 % (33.0-51.0); Hemoglobin 8.6 g/dL (11.5-16.0)
[2023-04-06 04:59] LABS: Albumin, Blood 2.4 g/dL (3.4-5.0); Anion Gap 6 mmol/L (6-16); Blood Urea Nitrogen 44 mg/dL (8-24); Bun/Creatinine Ratio 8.4 (12.0-20.0); CO2, Blood 32 mmol/L (21-32); Calcium, Blood 8.4 mg/dL (8.5-10.1); Chloride, Blood 100 mmol/L (98-108); Creatinine, Blood 5.25 mg/dL (0.40-1.00); Glomerular Filtration Rate 8 (60-); Glucose, Blood 150 mg/dL (70-99); Magnesium, Blood 2.2 mg/dL (1.6-2.4); Phosphorus, Blood 3.6 mg/dL (2.5-4.9); Potassium, Blood 4.1 mmol/L (3.5-5.5); Sodium, Blood 138 mmol/L (136-145)
== END 2023-04-06 11:46 | disposition home or self-care (01) | DRG 377 ==
LOC: ER 13:00 → PCU 18:22 → ICUE 18:22 → PCU 04-04 17:41
PROVIDERS: Anesthesiology; Internal Medicine Gastroenterology; Internal Medicine Nephrology; Physician Assistant; Student in an Organized Health Care Education/Training Program; ADMIT Internal Medicine
PROC: 30233N1 Transfusion of Nonautologous Red Blood Cells into Peripheral Vein, Percutaneous Approach (ICD-10-PCS; 2023-04-01)
PROC: 0W3P8ZZ Control Bleeding in Gastrointestinal Tract, Via Natural or Artificial Opening Endoscopic (ICD-10-PCS; principal; 2023-04-02 18:45)
PROC: 5A1D70Z Performance of Urinary Filtration, Intermittent, Less than 6 Hours Per Day (ICD-10-PCS; 2023-04-03)
DX: K31.82 Dieulafoy lesion (hemorrhagic) of stomach and duodenum (principal); N18.6 End stage renal disease; D62 Acute posthemorrhagic anemia; J96.11 Chronic respiratory failure with hypoxia; F11.20 Opioid dependence, uncomplicated; I13.2 Hypertensive heart and chronic kidney disease with heart failure and with stage 5 chronic kidney disease, or end stage renal disease; J44.9 Chronic obstructive pulmonary disease, unspecified; E11.22 Type 2 diabetes mellitus with diabetic chronic kidney disease; I48.0 Paroxysmal atrial fibrillation; E78.5 Hyperlipidemia, unspecified; G25.81 Restless legs syndrome; F41.9 Anxiety disorder, unspecified; D63.1 Anemia in chronic kidney disease; F32.A Depression, unspecified; E86.9 Volume depletion, unspecified; I50.9 Heart failure, unspecified; E87.5 Hyperkalemia; E88.09 Other disorders of plasma-protein metabolism, not elsewhere classified; G89.29 Other chronic pain; I27.20 Pulmonary hypertension, unspecified; F17.210 Nicotine dependence, cigarettes, uncomplicated; K21.9 Gastro-esophageal reflux disease without esophagitis; B19.20 Unspecified viral hepatitis C without hepatic coma; E87.70 Fluid overload, unspecified; J98.01 Acute bronchospasm; Z88.8 Allergy status to other drugs, medicaments and biological substances; Z91.158 Patient's noncompliance with renal dialysis for other reason; Z99.81 Dependence on supplemental oxygen; Z86.73 Personal history of transient ischemic attack (TIA), and cerebral infarction without residual deficits; Z79.899 Other long term (current) drug therapy; Z79.51 Long term (current) use of inhaled steroids; Z99.2 Dependence on renal dialysis; Z79.4 Long term (current) use of insulin; Z79.82 Long term (current) use of aspirin; Z90.49 Acquired absence of other specified parts of digestive tract; Z87.19 Personal history of other diseases of the digestive system; Z98.890 Other specified postprocedural states
CPT/HCPCS: 36415; 36430; 74176; 80048; 80053; 80069; 82274; 82947; 83735; 84132; 84484; 85014; 85018; 85025; 85027; 86850; 86900; 86901; 86923; 93005; 93010; 94640; 94664; 94760; 94762; 96374; 96375; 97116; 97161; 97165; 97530; 97535; 99285-25; A9270; C1751; C9113; J0171; J0881; J1100; J1430; J1610; J1940; J2001; J2371; J2405; J2704; J3010; J7030; J7050; P9016

== ENCOUNTER 2023-04-19 14:09 | Inpatient (IN) | payer MEDICARE ==
[~2023-04-19] VITALS: Ht 152.4 cm; Wt 77.9 kg
[2023-04-19] VITALS (9 sets, daily range): BP systolic 133–150; BP diastolic 43–141
[~2023-04-19 14:09] MED LIST changes: +CALCIUM CARBON500 M4 PO; +NEPHRO VITAMIN0.8 MG PO; +SENN187 PO
[2023-04-19] MEDS ORDERED: FLU VACC QS2023-24(6MOS UP)/PF 60 MCG/0.5 ML SYRINGE IM PRN (16:45)
[2023-04-19] MEDS ORDERED: Ondansetron HCl 2 MG / ML 2ML Vial IV PRN (16:50)
[2023-04-19] MEDS ORDERED: Ipratropium/Albuterol SulF 2.5-0.5MG/3 ML Amp INH SCH (16:50)
[2023-04-19] MEDS ORDERED: NS 1,000 ML IV ONE (17:22)
[2023-04-19] MEDS ORDERED: Metoprolol Tartrate 25 MG Tab PO SCH (17:30)
[2023-04-19 17:39] LABS: Hemoglobin 5.6 g/dL (11.5-16.0)
[2023-04-19 17:41] LABS: Albumin, Blood 2.3 g/dL (3.4-5.0); Anion Gap 4 mmol/L (6-16); Blood Urea Nitrogen 44 mg/dL (8-24); Bun/Creatinine Ratio 14.9 (12.0-20.0); CO2, Blood 31 mmol/L (21-32); Calcium, Blood 7.7 mg/dL (8.5-10.1); Chloride, Blood 100 mmol/L (98-108); Creatinine, Blood 2.95 mg/dL (0.40-1.00); Glomerular Filtration Rate 16 (60-); Glucose, Blood 254 mg/dL (70-99); Hematocrit 17.3 % (33.0-51.0); Phosphorus, Blood 2.4 mg/dL (2.5-4.9); Potassium, Blood 3.6 mmol/L (3.5-5.5); Sodium, Blood 135 mmol/L (136-145)
[2023-04-19] MEDS ORDERED: Mometasone Furoate Inhaler 220 mcg 14 ACT INH SCH (17:50)
[2023-04-19] MEDS ORDERED: Insulin Human Lispro 100 Units/ML 3ML Syringe SC SCH (18:00)
[2023-04-19] MEDS ORDERED: LEVE500 PO (19:30)
[2023-04-19] MEDS ORDERED: NS 500 ML IV SCH (20:40)
[2023-04-19] MEDS ORDERED: Levodopa/Carbidopa 100 / 25 MG Tab PO SCH (21:00)
[2023-04-19] MEDS ORDERED: Acetaminophen 325 MG TABLET PO PRN (21:40)
[2023-04-19] MEDS ORDERED: Darbepoetin Alfa In Albumn Sol 40 MCG/0.4 ML SC SCH (22:00)
[2023-04-20] VITALS (19 sets, daily range): BP systolic 86–180; BP diastolic 39–90
[2023-04-20 00:32] LABS: Hematocrit 24.7 % (33.0-51.0); Hemoglobin 7.6 g/dL (11.5-16.0)
--- NOTE | 2023-04-20 05:01 | NUR ---
Shift Summary Patient was admitted to the floor from ER. She had a Hgb of 5.6 and HCT17.3. She recieved 2 units of PRBC's and her Hgb was 7.6 and HCT 24.7 on recheck. She is alert and oriented x 4. Respirations are regular and unlabored. Lung sounds clear. She is on oxygen per NC at 2.5 L. Skin is warm and dry. She is able to transfer with assistance to the bedside commode to void. She complains of urgency but not pain or buring with urination. She has an IV in her right forearm that is saline locked. She receives dialysis with access site in left arm. Accuchecks are ordered every 6 hours. She did not require any coverage this shift. She is NPO.
[2023-04-20] MEDS ORDERED: Atorvastatin 40 MG Tab PO SCH (09:00)
[2023-04-20] MEDS ORDERED: rOPINIRole HCl 1 MG Tab PO SCH (09:00)
[2023-04-20] MEDS ORDERED: LevETIRAcetam 500 MG Tab PO SCH (09:00)
[2023-04-20 10:26] LABS: BASOPHILS ABSOLUTE AUTO 0.03 K/mm3 (0.00-0.23); BASOPHILS PERCENT AUTO 1 % (0-2); EOSINOPHILS ABSOLUTE AUTO 0.11 K/mm3 (0.00-0.68); EOSINOPHILS PERCENT AUTO 2 % (0-6); Hematocrit 22.2 % (33.0-51.0); Hemoglobin 7.1 g/dL (11.5-16.0); IMMATURE GRAN ABSOLUTE AUTO 0.05 K/mm3 (0.00-0.10); IMMATURE GRAN PERCENT AUTO 1 % (0-1); LYMPHOCYTES ABSOLUTE AUTO 0.72 K/mm3 (0.84-5.20); LYMPHOCYTES PERCENT AUTO 11 % (21-46); MONOCYTES ABSOLUTE AUTO 0.53 K/mm3 (0.16-1.47); MONOCYTES PERCENT AUTO 8 % (4-13); Mean Corpuscular HGB 27.6 pg (26.0-34.0); Mean Corpuscular Volume 86 fL (80-100); NEUTROPHILS ABSOLUTE AUTO 5.07 K/mm3 (1.96-9.15); NEUTROPHILS PERCENT AUTO 78 % (41-73); NRBC ABSOLUTE 0.02 K/mm3 (0.00-0.02); NRBC Auto 0.3 /100 WBC (0.0-0.2); Platelet Count 178 K/mm3 (150-400); RDW Coefficient Variation 21.2 % (11.7-14.2); RDW Standard Deviation 65.1 fL (35.1-46.3); Red Blood Cell Count 2.57 M/mm3 (3.80-5.20); White Blood Cell Count 6.51 K/mm3 (4.00-11.30)
[2023-04-20 10:55] LABS: Magnesium, Blood 1.9 mg/dL (1.6-2.4)
[2023-04-20 10:56] LABS: Albumin, Blood 2.4 g/dL (3.4-5.0); Anion Gap 2 mmol/L (6-16); Blood Urea Nitrogen 80 mg/dL (8-24); Bun/Creatinine Ratio 17.9 (12.0-20.0); CO2, Blood 32 mmol/L (21-32); Calcium, Blood 7.8 mg/dL (8.5-10.1); Chloride, Blood 103 mmol/L (98-108); Creatinine, Blood 4.47 mg/dL (0.40-1.00); Glomerular Filtration Rate 10 (60-); Glucose, Blood 208 mg/dL (70-99); Phosphorus, Blood 3.5 mg/dL (2.5-4.9); Potassium, Blood 4.5 mmol/L (3.5-5.5); Sodium, Blood 137 mmol/L (136-145)
[2023-04-20] MEDS ORDERED: NS 1,000 ML IV SCH (13:20)
--- NOTE | 2023-04-20 14:39 | NUR ---
PT HAS A 20G IV TO LEFT WRIST THAT FLUSHES WELL AND FLOWS TO GRAVITY.
[2023-04-20] MEDS ORDERED: propofoL 20 ML IV ONE (14:47)
[2023-04-20] MEDS ORDERED: FentaNYL Citrate 50 MCG/ML 2 ML Injection ONE (14:48)
--- NOTE | 2023-04-20 15:35 | NUR ---
04/20/23 1535 Nixon Moise MONITOR INTACT WITH CONTINUOUS PULSE OXIMETRY, CONTINUOUS END TITAL CO2, AND INTERMITTENT BLOOD PRESSURE. History, Chart, Medications and Allergies reviewed before start of procedure. 3-LEAD EKG REVIEWED WITH PHYSICIAN PRIOR TO START OF PROCEDURE. Bite Block Placed. PT INTUBATED IN OR [address] CAMERON.
[2023-04-20] MEDS ORDERED: Metoclopramide HCl 5MG / ML 2ML Vial ONE (15:36)
[2023-04-20] MEDS ORDERED: Ondansetron HCl 2 MG / ML 2ML Vial ONE (15:36)
[2023-04-20] MEDS ORDERED: Phenylephrine HCl 100 MCG/ML-NS 10MLSYR (1MG/10ML) ONE (15:52)
[2023-04-20] MEDS ORDERED: Rocuronium Bromide 10 MG/ML 5ML Injection IV ONE (15:52)
[2023-04-20] MEDS ORDERED: Sugammadex Sodium 200 MG/2ML SDV (100 MG/ML) ONE (15:52)
--- NOTE | 2023-04-20 16:27 | NUR ---
EMERGENCY NECKLACE PLACED BACK ON PT
--- NOTE | 2023-04-20 18:32 | NUR ---
SHIFT SUMMARY: PT IS A 72 YEAR OLD FEMALE HERE FOR WEAKNESS, BLACK STOOLS X1 YEAR, AND LOW HEMOGLOBIN. HER MOST RECENT HEMOGLOBIN WAS 7.1 FROM 7.6 AFTER RECEIVING 2 UNITS OF BLOOD YESTERDAY 04/19/23. SHE UNDERWENT AN UPPER GI PROCEDURE TODAY AND DR. SAGASTUME FOUND THAT SHE HAD ANOTHER BLEED; A CLIP WAS PLACED. PATIENT RETURNED FROM DAY SURGERY ALERT AND STABLE. SHE IS EATING AND DRINKING WITHOUT DIFFICULTY AND DENIES PAIN OR NAUSEA. SHE IS IN BED, CALL LIGHT WITHIN REACH, NO SIGNS OR SYMPTOMS OF DISTRESS; SPEAKING WITH HER DAUGHER. (I DID SPEAK WITH THE DAUGHTER AND GAVE HER AN UPDATE) PLAN OF CARE ONGOING.
[2023-04-21] VITALS (12 sets, daily range): BP systolic 117–169; BP diastolic 39–69
--- NOTE | 2023-04-21 04:07 | NUR ---
Shift Summary Patient is a 72 year old female that was admitted with anemia. She recieved 2 units of PRBC's on admission. She stated that she has been having black stools for a while. Respirations regular and unlabored. She is on oxygen at 2.5L per NC. She has expiratory wheezing in bilateral upper lobes. Skin is warm and dry. She is alert and oriented. Able to get up to bedside commode with assistance. She has a large bowel movement on day shift yesterday according to the reporting nurse. She has an IV in her left forearm that is saline locked. Bed is in low position. Siderails up x 2. Call light in reach.
[2023-04-21 05:01] LABS: BASOPHILS ABSOLUTE AUTO 0.03 K/mm3 (0.00-0.23); BASOPHILS PERCENT AUTO 0 % (0-2); EOSINOPHILS ABSOLUTE AUTO 0.17 K/mm3 (0.00-0.68); EOSINOPHILS PERCENT AUTO 3 % (0-6); Hematocrit 18.9 % (33.0-51.0); IMMATURE GRAN ABSOLUTE AUTO 0.04 K/mm3 (0.00-0.10); IMMATURE GRAN PERCENT AUTO 1 % (0-1); LYMPHOCYTES ABSOLUTE AUTO 1.18 K/mm3 (0.84-5.20); LYMPHOCYTES PERCENT AUTO 18 % (21-46); MONOCYTES ABSOLUTE AUTO 0.69 K/mm3 (0.16-1.47); MONOCYTES PERCENT AUTO 10 % (4-13); Mean Corpuscular HGB Conc 31.7 g/dL (31.5-36.5); Mean Corpuscular Volume 88 fL (80-100); Mean Platelet Volume 9.4 fL (9.1-12.4); NEUTROPHILS ABSOLUTE AUTO 4.64 K/mm3 (1.96-9.15); NEUTROPHILS PERCENT AUTO 69 % (41-73); NRBC ABSOLUTE 0.02 K/mm3 (0.00-0.02); NRBC Auto 0.3 /100 WBC (0.0-0.2); Platelet Count 179 K/mm3 (150-400); RDW Coefficient Variation 21.5 % (11.7-14.2); RDW Standard Deviation 67.5 fL (35.1-46.3); Red Blood Cell Count 2.14 M/mm3 (3.80-5.20); White Blood Cell Count 6.75 K/mm3 (4.00-11.30)
[2023-04-21 05:39] LABS: Albumin, Blood 2.5 g/dL (3.4-5.0); Anion Gap 4 mmol/L (6-16); Blood Urea Nitrogen 76 mg/dL (8-24); Bun/Creatinine Ratio 15.3 (12.0-20.0); CO2, Blood 31 mmol/L (21-32); Calcium, Blood 7.7 mg/dL (8.5-10.1); Chloride, Blood 103 mmol/L (98-108); Creatinine, Blood 4.96 mg/dL (0.40-1.00); Glomerular Filtration Rate 9 (60-); Glucose, Blood 193 mg/dL (70-99); Magnesium, Blood 2.1 mg/dL (1.6-2.4); Phosphorus, Blood 4.1 mg/dL (2.5-4.9); Potassium, Blood 4.3 mmol/L (3.5-5.5); Sodium, Blood 138 mmol/L (136-145)
[2023-04-21] MEDS ORDERED: Albuterol 2.5 MG/3 ML VIAL INH PRN (17:35)
[2023-04-21] MEDS ORDERED: rOPINIRole HCl 2 MG Tab PO SCH (18:00)
--- NOTE | 2023-04-21 18:46 | NUR ---
SHIFT SUMMARY: NO ACUTE EVENTS. HAD DIALYSIS TODAY AND WAS TRANSFUSED ONE UNIT PRBC'S, TOLERATED WELL. NO C/O PAIN. GETTING UP TO BSC/BR WITH ASSISTANCE. GOOD APPETITE. IS HOPING TO GO HOME TOMORROW.
[2023-04-21] MEDS ORDERED: TraZODone HCl 50 MG Tab PO SCH (21:00)
[2023-04-22] VITALS (14 sets, daily range): BP systolic 124–159; BP diastolic 54–96
--- NOTE | 2023-04-22 04:21 | NUR ---
SHIFT SUMMARY; PATIENT PULLED AT IV ON LEFT AC REPEATEDLY DURING NOC SHIFT. DECISION TO STOP IV AND START AGAIN IN AM WHEN ANTOLIN IS BETTER ABLE TO LEAVE IV ALONE. ANTOLIN DOES WEAR HER CPAP DURING NOC SHIFT. SHE AMBULATES TO BATHROOM WITHOUT ASSIST. ANTOLIN IS AO X 4. ABLE TO MAKE HER NEEDS KNOWN. IS PLEASANT AND COOPERATIVE WITH CARE. HER LUNGS ARE CLEAR IN ALL 4 AT THIS TIME. WERE NOTED TO HAVE CRACKLES IN BASES AT SHIFT CHANGE BUT CLEARED WITH COUGH.
--- NOTE | 2023-04-22 04:27 | NUR ---
SHIFT SUMMARY; PATIENT REMAINED ON BEDREST DURING NOC SHIFT. SHE IS AO X 4 DURING SHIFT. SHE HAS PLEASANT AFFECT AND USES CALL LIGHT APPROPRIATELY AND IS ABLE TO MAKE HER NEEDS KNOWN. IV IN RIGHT ARM IS SALINE LOCKED. VITAL SIGNS ARE STABLE. NO ACUTE CHANGES IN CONDITION NOTED DURING NOC SHIFT.
[2023-04-22] MEDS ORDERED: Pantoprazole Sodium 40 MG Tab PO SCH (06:00)
[2023-04-22 06:36] LABS: Hematocrit 24.6 % (33.0-51.0); Hemoglobin 7.9 g/dL (11.5-16.0)
[2023-04-22 07:04] LABS: Albumin, Blood 2.6 g/dL (3.4-5.0); Anion Gap 4 mmol/L (6-16); Blood Urea Nitrogen 50 mg/dL (8-24); Bun/Creatinine Ratio 10.7 (12.0-20.0); CO2, Blood 31 mmol/L (21-32); Calcium, Blood 8.1 mg/dL (8.5-10.1); Chloride, Blood 101 mmol/L (98-108); Creatinine, Blood 4.69 mg/dL (0.40-1.00); Glomerular Filtration Rate 9 (60-); Glucose, Blood 190 mg/dL (70-99); Magnesium, Blood 2.2 mg/dL (1.6-2.4); Phosphorus, Blood 4.8 mg/dL (2.5-4.9); Potassium, Blood 4.5 mmol/L (3.5-5.5); Sodium, Blood 136 mmol/L (136-145)
[2023-04-22] MEDS ORDERED: Insulin Human Lispro 100 Units/ML 3ML Syringe SC SCH (07:35)
[2023-04-22] MEDS ORDERED: LevETIRAcetam 500 MG Tab PO SCH (09:00)
[2023-04-22] MEDS ORDERED: ASPI81CH PO (14:51)
--- NOTE | 2023-04-22 16:12 | NUR ---
1539 PATIENT DISCHARGED TO PREVIOUS HOME, TRANSFERED BY [facility], REPORT TO MAIRA MEDEL FROM SANTANA FERGUSON RN
== END 2023-04-22 16:55 | disposition home or self-care (01) | DRG 377 ==
LOC: ER 14:09 → MEDS 17:49
PROVIDERS: Internal Medicine Gastroenterology; Internal Medicine Nephrology; ADMIT Internal Medicine
PROC: 30233N1 Transfusion of Nonautologous Red Blood Cells into Peripheral Vein, Percutaneous Approach (ICD-10-PCS; 2023-04-19)
PROC: 5A1D70Z Performance of Urinary Filtration, Intermittent, Less than 6 Hours Per Day (ICD-10-PCS; 2023-04-20)
PROC: 0W3P8ZZ Control Bleeding in Gastrointestinal Tract, Via Natural or Artificial Opening Endoscopic (ICD-10-PCS; principal; 2023-04-20 14:00)
DX: K31.82 Dieulafoy lesion (hemorrhagic) of stomach and duodenum (principal); K63.81 Dieulafoy lesion of intestine; N18.6 End stage renal disease; I12.0 Hypertensive chronic kidney disease with stage 5 chronic kidney disease or end stage renal disease; D62 Acute posthemorrhagic anemia; E87.1 Hypo-osmolality and hyponatremia; J44.9 Chronic obstructive pulmonary disease, unspecified; E11.22 Type 2 diabetes mellitus with diabetic chronic kidney disease; G40.909 Epilepsy, unspecified, not intractable, without status epilepticus; G25.81 Restless legs syndrome; F41.9 Anxiety disorder, unspecified; F32.A Depression, unspecified; G47.00 Insomnia, unspecified; I27.20 Pulmonary hypertension, unspecified; G89.29 Other chronic pain; E78.5 Hyperlipidemia, unspecified; E55.9 Vitamin D deficiency, unspecified; D63.1 Anemia in chronic kidney disease; K21.9 Gastro-esophageal reflux disease without esophagitis; G20.A1 Parkinson's disease without dyskinesia, without mention of fluctuations; E86.9 Volume depletion, unspecified; I48.0 Paroxysmal atrial fibrillation; E66.9 Obesity, unspecified; I08.1 Rheumatic disorders of both mitral and tricuspid valves; E87.70 Fluid overload, unspecified; Z99.81 Dependence on supplemental oxygen; Z86.73 Personal history of transient ischemic attack (TIA), and cerebral infarction without residual deficits; Z99.2 Dependence on renal dialysis; Z88.8 Allergy status to other drugs, medicaments and biological substances; Z88.6 Allergy status to analgesic agent; Z79.82 Long term (current) use of aspirin; Z79.4 Long term (current) use of insulin; Z79.51 Long term (current) use of inhaled steroids; Z86.16 Personal history of COVID-19; Z86.19 Personal history of other infectious and parasitic diseases; Z68.33 Body mass index [BMI] 33.0-33.9, adult; Z72.0 Tobacco use
CPT/HCPCS: 36415; 36430; 80069; 82947; 83735; 85014; 85018; 85025; 86850; 86900; 86901; 86923; 94640; 94664; 94760; 99284; A9270; J0881; J2371; J2405; J2704; J2765; J3010; J7030; J7040; P9016

== ENCOUNTER 2023-07-10 22:00 | Emergency (ER) | payer MEDICARE ==
[~2023-07-10] VITALS: Ht 152.4 cm; Wt 80.0 kg
[2023-07-10 22:43] LABS: BASOPHILS ABSOLUTE AUTO 0.03 K/mm3 (0.00-0.23); BASOPHILS PERCENT AUTO 0 % (0-2); EOSINOPHILS ABSOLUTE AUTO 0.14 K/mm3 (0.00-0.68); EOSINOPHILS PERCENT AUTO 2 % (0-6); Hematocrit 18.1 % (33.0-51.0); IMMATURE GRAN ABSOLUTE AUTO 0.07 K/mm3 (0.00-0.10); IMMATURE GRAN PERCENT AUTO 1 % (0-1); LYMPHOCYTES ABSOLUTE AUTO 0.59 K/mm3 (0.84-5.20); LYMPHOCYTES PERCENT AUTO 8 % (21-46); MONOCYTES ABSOLUTE AUTO 0.54 K/mm3 (0.16-1.47); MONOCYTES PERCENT AUTO 7 % (4-13); Mean Corpuscular HGB 29.7 pg (26.0-34.0); Mean Corpuscular Volume 93 fL (80-100); Mean Platelet Volume 9.6 fL (9.1-12.4); NEUTROPHILS ABSOLUTE AUTO 6.36 K/mm3 (1.96-9.15); NEUTROPHILS PERCENT AUTO 82 % (41-73); Platelet Count 163 K/mm3 (150-400); RDW Coefficient Variation 16.3 % (11.7-14.2); RDW Standard Deviation 54.2 fL (35.1-46.3); Red Blood Cell Count 1.95 M/mm3 (3.80-5.20); White Blood Cell Count 7.73 K/mm3 (4.00-11.30)
[2023-07-10 22:44] LABS: Hemoglobin 5.8 g/dL (11.5-16.0)
[2023-07-10] MEDS ORDERED: Furosemide 10 MG/ML 10ML Vial IV ONE (23:15)
[2023-07-10] MEDS ORDERED: Pantoprazole Sodium 40 MG Injection IV ONE (23:25)
[2023-07-10 23:33] LABS: Iron Serum 131 ug/dL (50-170); Magnesium, Blood 2.1 mg/dL (1.6-2.4); Percent Saturation 53.7 % (15.0-50.0); Total Iron Binding Capacity 244 ug/dL (250-450)
[2023-07-10] MEDS ORDERED: NS 1,000 ML IV SCH (23:55)
[2023-07-11 00:03] LABS: Ferritin, Serum 434 ng/mL (8-252)
[2023-07-11 00:18] LABS: International Normalized Ratio 0.98; Prothrombin Time Results 10.5 Sec (9.7-11.5)
[2023-07-11 00:53] LABS: Alanine Aminotransfer (ALT/SGP <6 U/L (12-78); Albumin/Globulin Ratio 0.9 (0.8-1.8); Alk Phos 66 U/L (50-136); Anion Gap 11 mmol/L (3-11); Aspartate Aminotrans (AST/SGOT 10 U/L (12-37); Bilirubin, Total 0.2 mg/dL (0.1-1.0); Blood Urea Nitrogen 76 mg/dL (8-24); Bun/Creatinine Ratio 16.3 (12.0-20.0); CO2, Blood 31 mmol/L (21-32); Chloride, Blood 103 mmol/L (98-108); Creatinine, Blood 4.65 mg/dL (0.40-1.00); Globulin, Blood 3.2 g/dL (2.2-4.0); Glomerular Filtration Rate 9 (60-); Glucose, Blood 278 mg/dL (70-99); Potassium, Blood 4.2 mmol/L (3.5-5.5); Sodium, Blood 141 mmol/L (136-145); Total Protein, Blood 6.2 g/dL (6.4-8.2)
[2023-07-11 01:55] VITALS: BP 137/52
== END 2023-07-11 02:20 | disposition short-term general hospital (02) ==
LOC: ER 22:00
PROVIDERS: Student in an Organized Health Care Education/Training Program
DX: D64.9 Anemia, unspecified (principal); K92.1 Melena; Z88.8 Allergy status to other drugs, medicaments and biological substances; Z79.899 Other long term (current) drug therapy; Z79.4 Long term (current) use of insulin; Z79.82 Long term (current) use of aspirin; N18.6 End stage renal disease; E11.22 Type 2 diabetes mellitus with diabetic chronic kidney disease; I12.0 Hypertensive chronic kidney disease with stage 5 chronic kidney disease or end stage renal disease; J44.9 Chronic obstructive pulmonary disease, unspecified; K21.9 Gastro-esophageal reflux disease without esophagitis; E78.5 Hyperlipidemia, unspecified; F17.210 Nicotine dependence, cigarettes, uncomplicated
CPT/HCPCS: 36430; 80053; 82728; 83540; 83550; 83735; 85025; 85610; 85730; 93005; 93010; 96374; 96375; 99285-25; C9113; J1940; J7030; P9016

== ENCOUNTER 2023-09-16 20:10 | Emergency (ER) | payer MEDICARE ==
[~2023-09-16] VITALS: Ht 152.4 cm; Wt 78.0 kg
[2023-09-16] MEDS ORDERED: Ipratropium/Albuterol SulF 2.5-0.5MG/3 ML Amp INH ONE (20:35)
[2023-09-16 20:45] LABS: BASOPHILS ABSOLUTE AUTO 0.03 K/mm3 (0.00-0.23); BASOPHILS PERCENT AUTO 0 % (0-2); EOSINOPHILS ABSOLUTE AUTO 0.17 K/mm3 (0.00-0.68); EOSINOPHILS PERCENT AUTO 2 % (0-6); Hemoglobin 7.7 g/dL (11.5-16.0); IMMATURE GRAN ABSOLUTE AUTO 0.02 K/mm3 (0.00-0.10); IMMATURE GRAN PERCENT AUTO 0 % (0-1); LYMPHOCYTES ABSOLUTE AUTO 0.78 K/mm3 (0.84-5.20); LYMPHOCYTES PERCENT AUTO 10 % (21-46); MONOCYTES ABSOLUTE AUTO 0.54 K/mm3 (0.16-1.47); MONOCYTES PERCENT AUTO 7 % (4-13); Mean Corpuscular HGB 28.9 pg (26.0-34.0); Mean Corpuscular HGB Conc 30.8 g/dL (31.5-36.5); Mean Corpuscular Volume 94 fL (80-100); Mean Platelet Volume 9.3 fL (9.1-12.4); NEUTROPHILS ABSOLUTE AUTO 6.67 K/mm3 (1.96-9.15); NEUTROPHILS PERCENT AUTO 81 % (41-73); Platelet Count 180 K/mm3 (150-400); RDW Coefficient Variation 16.2 % (11.7-14.2); RDW Standard Deviation 55.1 fL (35.1-46.3); Red Blood Cell Count 2.66 M/mm3 (3.80-5.20); White Blood Cell Count 8.21 K/mm3 (4.00-11.30)
[2023-09-16 21:12] LABS: Magnesium, Blood 2.4 mg/dL (1.6-2.4)
[2023-09-16 21:19] LABS: Alanine Aminotransfer (ALT/SGP <6 U/L (12-78); Albumin, Blood 3.4 g/dL (3.4-5.0); Albumin/Globulin Ratio 0.9 (0.8-1.8); Alk Phos 74 U/L (50-136); Anion Gap 13 mmol/L (3-11); Aspartate Aminotrans (AST/SGOT 15 U/L (12-37); Bilirubin, Total 0.5 mg/dL (0.1-1.0); Blood Urea Nitrogen 80 mg/dL (8-24); CO2, Blood 28 mmol/L (21-32); Chloride, Blood 107 mmol/L (98-108); Globulin, Blood 3.7 g/dL (2.2-4.0); Glomerular Filtration Rate 5 (60-); Glucose, Blood 177 mg/dL (70-99); Potassium, Blood 4.6 mmol/L (3.5-5.5); Sodium, Blood 143 mmol/L (136-145); Total Protein, Blood 7.1 g/dL (6.4-8.2)
[2023-09-16 21:26] LABS: Influenza A, PCR NEGATIVE (NEGATIVE); Influenza B, PCR NEGATIVE (NEGATIVE); Resp Syncytial Virus, PCR NEGATIVE (NEGATIVE); SARS-Cov-2 (COVID-19) PCR, MMC NEGATIVE (NEGATIVE)
[2023-09-16] MEDS ORDERED: Furosemide 10 MG/ML 4ML Vial IV ONE (22:05)
[2023-09-16] MEDS ORDERED: RX Prepack Albuterol 1 PREPACK/6.7 GM INH UD ONE (23:20)
[2023-09-16 23:30] VITALS: BP 189/77
[2023-09-17] MEDS ORDERED: Prednisone20 MG PO (19:56)
== END 2023-09-16 23:57 | disposition home or self-care (01) ==
LOC: ER 20:10
PROVIDERS: Student in an Organized Health Care Education/Training Program
DX: I13.2 Hypertensive heart and chronic kidney disease with heart failure and with stage 5 chronic kidney disease, or end stage renal disease (principal); I50.9 Heart failure, unspecified; N18.6 End stage renal disease; E11.22 Type 2 diabetes mellitus with diabetic chronic kidney disease; J44.9 Chronic obstructive pulmonary disease, unspecified; K21.9 Gastro-esophageal reflux disease without esophagitis; E78.5 Hyperlipidemia, unspecified; F17.210 Nicotine dependence, cigarettes, uncomplicated; Z86.73 Personal history of transient ischemic attack (TIA), and cerebral infarction without residual deficits; Z99.2 Dependence on renal dialysis; Z88.6 Allergy status to analgesic agent; Z88.8 Allergy status to other drugs, medicaments and biological substances; Z79.4 Long term (current) use of insulin; Z79.51 Long term (current) use of inhaled steroids; Z79.899 Other long term (current) drug therapy
CPT/HCPCS: 0241U; 71046; 80053; 83735; 83880; 84484; 85025; 93005; 93010; 94640; 94664; 96374; 99285-25; A9270; J1940

== ENCOUNTER 2023-09-17 15:37 | Emergency (ER) | payer MEDICARE ==
[~2023-09-17] VITALS: Ht 147.3 cm; Wt 59.0 kg
[2023-09-17] MEDS ORDERED: Ipratropium/Albuterol SulF 2.5-0.5MG/3 ML Amp INH ONE (16:50)
[2023-09-17] MEDS ORDERED: MethylPREDNISolone Sod Succ 125 MG Vial IV ONE (16:50)
[2023-09-17 18:01] LABS: Alanine Aminotransfer (ALT/SGP <6 U/L (12-78); Albumin, Blood 3.1 g/dL (3.4-5.0); Albumin/Globulin Ratio 0.8 (0.8-1.8); Alk Phos 64 U/L (50-136); Anion Gap 12 mmol/L (3-11); Aspartate Aminotrans (AST/SGOT 20 U/L (12-37); Bilirubin, Total 0.5 mg/dL (0.1-1.0); Blood Urea Nitrogen 88 mg/dL (8-24); Bun/Creatinine Ratio 9.8 (12.0-20.0); CO2, Blood 25 mmol/L (21-32); Calcium, Blood 8.5 mg/dL (8.5-10.1); Chloride, Blood 107 mmol/L (98-108); Creatinine, Blood 8.94 mg/dL (0.40-1.00); Globulin, Blood 3.9 g/dL (2.2-4.0); Glomerular Filtration Rate 4 (60-); Glucose, Blood 124 mg/dL (70-99); Potassium, Blood 4.6 mmol/L (3.5-5.5); Sodium, Blood 139 mmol/L (136-145)
[2023-09-17 18:01] LABS: BASOPHILS ABSOLUTE AUTO 0.05 K/mm3 (0.00-0.23); BASOPHILS PERCENT AUTO 1 % (0-2); EOSINOPHILS ABSOLUTE AUTO 0.18 K/mm3 (0.00-0.68); EOSINOPHILS PERCENT AUTO 2 % (0-6); Hematocrit 23.1 % (33.0-51.0); Hemoglobin 7.2 g/dL (11.5-16.0); IMMATURE GRAN ABSOLUTE AUTO 0.04 K/mm3 (0.00-0.10); IMMATURE GRAN PERCENT AUTO 1 % (0-1); LYMPHOCYTES ABSOLUTE AUTO 0.84 K/mm3 (0.84-5.20); LYMPHOCYTES PERCENT AUTO 11 % (21-46); MONOCYTES ABSOLUTE AUTO 0.65 K/mm3 (0.16-1.47); MONOCYTES PERCENT AUTO 8 % (4-13); Mean Corpuscular HGB 29.4 pg (26.0-34.0); Mean Corpuscular HGB Conc 31.2 g/dL (31.5-36.5); Mean Corpuscular Volume 94 fL (80-100); Mean Platelet Volume 9.2 fL (9.1-12.4); NEUTROPHILS ABSOLUTE AUTO 6.21 K/mm3 (1.96-9.15); NEUTROPHILS PERCENT AUTO 78 % (41-73); Platelet Count 161 K/mm3 (150-400); RDW Standard Deviation 55.6 fL (35.1-46.3); Red Blood Cell Count 2.45 M/mm3 (3.80-5.20); White Blood Cell Count 7.97 K/mm3 (4.00-11.30)
[2023-09-17] MEDS ORDERED: Albuterol 2.5 MG/3 ML VIAL INH ONE (19:55)
[2023-09-17] MEDS ORDERED: Prednisone20 MG PO (19:56)
[2023-09-17 23:30] VITALS: BP 166/78
== END 2023-09-18 | disposition home or self-care (01) ==
LOC: ER 15:37
PROVIDERS: Emergency Medicine
DX: J44.9 Chronic obstructive pulmonary disease, unspecified (principal); I12.0 Hypertensive chronic kidney disease with stage 5 chronic kidney disease or end stage renal disease; E11.22 Type 2 diabetes mellitus with diabetic chronic kidney disease; N18.6 End stage renal disease; Z99.2 Dependence on renal dialysis; Z79.4 Long term (current) use of insulin; E78.5 Hyperlipidemia, unspecified; K21.9 Gastro-esophageal reflux disease without esophagitis; F17.210 Nicotine dependence, cigarettes, uncomplicated; Z88.8 Allergy status to other drugs, medicaments and biological substances
CPT/HCPCS: 71045; 80053; 85025; 93005; 93010; 94640; 94664; 96374; 99285-25; J2919

== ENCOUNTER 2023-10-27 12:05 | Observation (INO) | payer MEDICARE ==
[~2023-10-27] VITALS: Ht 160 cm; Wt 75.5 kg
[~2023-10-27 12:05] MED LIST changes: +Prednisone20 MG PO
[2023-10-27] MEDS ORDERED: Ondansetron HCl 2 MG / ML 2ML Vial IV ONE (12:50)
[2023-10-27] MEDS ORDERED: Acetaminophen 325 MG TABLET PO ONE (12:55)
[2023-10-27] MEDS ORDERED: Ondansetron HCl 2 MG / ML 2ML Vial ONE (13:10)
[2023-10-27 13:14] LABS: BASOPHILS ABSOLUTE AUTO 0.03 K/mm3 (0.00-0.23); BASOPHILS PERCENT AUTO 0 % (0-2); EOSINOPHILS ABSOLUTE AUTO 0.07 K/mm3 (0.00-0.68); EOSINOPHILS PERCENT AUTO 1 % (0-6); Hematocrit 38.2 % (33.0-51.0); IMMATURE GRAN ABSOLUTE AUTO 0.07 K/mm3 (0.00-0.10); IMMATURE GRAN PERCENT AUTO 1 % (0-1); LYMPHOCYTES ABSOLUTE AUTO 0.14 K/mm3 (0.84-5.20); LYMPHOCYTES PERCENT AUTO 2 % (21-46); MONOCYTES ABSOLUTE AUTO 0.08 K/mm3 (0.16-1.47); MONOCYTES PERCENT AUTO 1 % (4-13); Mean Corpuscular HGB 28.5 pg (26.0-34.0); Mean Corpuscular HGB Conc 31.4 g/dL (31.5-36.5); Mean Corpuscular Volume 91 fL (80-100); NEUTROPHILS ABSOLUTE AUTO 8.24 K/mm3 (1.96-9.15); NEUTROPHILS PERCENT AUTO 96 % (41-73); RDW Coefficient Variation 15.9 % (11.7-14.2); RDW Standard Deviation 53.1 fL (35.1-46.3); Red Blood Cell Count 4.21 M/mm3 (3.80-5.20); White Blood Cell Count 8.63 K/mm3 (4.00-11.30)
[2023-10-27 13:58] LABS: Influenza A, PCR NEGATIVE (NEGATIVE); Influenza B, PCR NEGATIVE (NEGATIVE); Resp Syncytial Virus, PCR NEGATIVE (NEGATIVE); SARS-Cov-2 (COVID-19) PCR, MMC NEGATIVE (NEGATIVE)
[2023-10-27 14:00] LABS: Albumin, Blood 2.4 g/dL (3.4-5.0); Albumin/Globulin Ratio 0.5 (0.8-1.8); Bilirubin, Total 0.7 mg/dL (0.1-1.0); Bun/Creatinine Ratio 8.6 (12.0-20.0); Creatinine, Blood 6.04 mg/dL (0.40-1.00); Globulin, Blood 4.5 g/dL (2.2-4.0); Potassium, Blood 3.9 mmol/L (3.5-5.5); Total Protein, Blood 6.9 g/dL (6.4-8.2)
--- NOTE | 2023-10-27 18:40 | NUR ---
HEMODIALYSIS IS SCHEDULED FOR 0900 IN THE AM ( SUNDAY ). DR GUO HAS BEEN CONSULTED.
[2023-10-27] MEDS ORDERED: Metolazone 5 MG Tab PO STA (19:31)
[2023-10-27] MEDS ORDERED: Bumetanide 0.25 MG/ML 4ML ViaL IV STA (19:32)
[2023-10-27] MEDS ORDERED: Heparin Sodium,Porcine 5,000 UNIT/0.5 ML SDV SC SCH (21:00)
[2023-10-27] MEDS ORDERED: Insulin NPH 100 Unit / ML 10ML Vial SC SCH (21:00)
[2023-10-27] MEDS ORDERED: Metoprolol Tartrate 25 MG Tab PO SCH (21:00)
[2023-10-27] MEDS ORDERED: rOPINIRole HCl 2 MG Tab PO SCH (21:00)
[2023-10-27] MEDS ORDERED: Levodopa/Carbidopa 100 / 25 MG Tab PO SCH (21:00)
[2023-10-28] VITALS (12 sets, daily range): BP systolic 128–183; BP diastolic 57–85
[2023-10-28] MEDS ORDERED: Mometasone/Formoterol MDI 100/5 mcg 13 GM INH SCH (01:10)
[2023-10-28] MEDS ORDERED: Acetaminophen 325 MG TABLET PO PRN (05:25)
[2023-10-28 05:43] LABS: BASOPHILS ABSOLUTE AUTO 0.05 K/mm3 (0.00-0.23); BASOPHILS PERCENT AUTO 0 % (0-2); EOSINOPHILS ABSOLUTE AUTO 0.25 K/mm3 (0.00-0.68); EOSINOPHILS PERCENT AUTO 2 % (0-6); Hemoglobin 10.6 g/dL (11.5-16.0); IMMATURE GRAN ABSOLUTE AUTO 0.07 K/mm3 (0.00-0.10); IMMATURE GRAN PERCENT AUTO 1 % (0-1); LYMPHOCYTES ABSOLUTE AUTO 0.66 K/mm3 (0.84-5.20); LYMPHOCYTES PERCENT AUTO 6 % (21-46); MONOCYTES ABSOLUTE AUTO 0.68 K/mm3 (0.16-1.47); MONOCYTES PERCENT AUTO 6 % (4-13); Mean Corpuscular HGB Conc 29.4 g/dL (31.5-36.5); Mean Platelet Volume 9.7 fL (9.1-12.4); NEUTROPHILS ABSOLUTE AUTO 9.65 K/mm3 (1.96-9.15); NEUTROPHILS PERCENT AUTO 85 % (41-73); Platelet Count 187 K/mm3 (150-400); RDW Coefficient Variation 15.9 % (11.7-14.2); RDW Standard Deviation 57.8 fL (35.1-46.3); Red Blood Cell Count 3.65 M/mm3 (3.80-5.20); White Blood Cell Count 11.36 K/mm3 (4.00-11.30)
[2023-10-28 05:46] LABS: Mean Corpuscular Volume 99 fL (80-100)
[2023-10-28 05:56] LABS: Albumin, Blood 2.1 g/dL (3.4-5.0); Albumin/Globulin Ratio 0.5 (0.8-1.8); Bilirubin, Total 0.3 mg/dL (0.1-1.0); Bun/Creatinine Ratio 10.2 (12.0-20.0); Calcium, Blood 8.3 mg/dL (8.5-10.1); Creatinine, Blood 7.06 mg/dL (0.40-1.00); Globulin, Blood 4.1 g/dL (2.2-4.0); Magnesium, Blood 2.4 mg/dL (1.6-2.4); Phosphorus, Blood 4.8 mg/dL (2.5-4.9); Potassium, Blood 3.9 mmol/L (3.5-5.5); Total Protein, Blood 6.2 g/dL (6.4-8.2)
[2023-10-28] MEDS ORDERED: Pantoprazole Sodium 40 MG Tab PO SCH (06:00)
--- NOTE | 2023-10-28 08:01 | NUR ---
PT ARRIVED FROM ER TO DIALYSIS, PT HAS NOT MADE IT TO PCU 7 WILL BE TO ROOM AFTER DIALYSIS
[2023-10-28] MEDS ORDERED: Anticoagulant Sod Citrate Soln 3 ML SYR INJ PRN (08:25)
[2023-10-28] MEDS ORDERED: Atorvastatin 40 MG Tab PO SCH (09:00)
[2023-10-28] MEDS ORDERED: rOPINIRole HCl 1 MG Tab PO SCH (09:00)
[2023-10-28] MEDS ORDERED: LevETIRAcetam 100 MG/ML 5ML ORAL SYR PO SCH (09:00)
[2023-10-28] MEDS ORDERED: Enoxaparin 30 MG/0.3 ML SYR SC SCH (09:00)
[2023-10-28] MEDS ORDERED: Cholecalciferol 1000 Unit Tablet (=25MCG) PO SCH (09:00)
--- NOTE | 2023-10-28 13:38 | NUR ---
ATTMEPTING TO CALL MAIRA MEDEL TO GIVE REPORT, SPOKE WITH DESK STAFF THEY ARE ALERTED THAT PATIENT WILL BE RETURNING TO THE FACILITY. TRANSPORT WILL ARRIVE SHORTLY FOR TRANSPORT
--- NOTE | 2023-10-28 13:50 | NUR ---
IV REMOVED AND PRESSURE DRESSING APPLIED, IV REMOVED INTACT. PT RECEIVED D/C TEACHING, DENIES FURTHER NEEDS.
== END 2023-10-28 14:33 | disposition home or self-care (01) ==
LOC: ER 12:05 → ERHOLD 12:06 → PCU 12:06
PROVIDERS: Family Medicine; Student in an Organized Health Care Education/Training Program; ADMIT Internal Medicine
DX: J96.21 Acute and chronic respiratory failure with hypoxia (principal); E11.22 Type 2 diabetes mellitus with diabetic chronic kidney disease; I12.0 Hypertensive chronic kidney disease with stage 5 chronic kidney disease or end stage renal disease; N18.6 End stage renal disease; R41.82 Altered mental status, unspecified; J44.9 Chronic obstructive pulmonary disease, unspecified; R79.89 Other specified abnormal findings of blood chemistry; K21.9 Gastro-esophageal reflux disease without esophagitis; E78.5 Hyperlipidemia, unspecified; G89.29 Other chronic pain; F17.210 Nicotine dependence, cigarettes, uncomplicated; Z79.4 Long term (current) use of insulin; Z79.899 Other long term (current) drug therapy; Z88.8 Allergy status to other drugs, medicaments and biological substances; Z99.2 Dependence on renal dialysis
CPT/HCPCS: 0241U; 71045; 80053; 82947; 83605; 83735; 84100; 84484; 85025; 93005; 93010; 94640; 94664; 94762; 96372; 96372-59; 96374; 96375; 99285-25; A9270; G0257; G0378; J1644; J1815; J2405

== ENCOUNTER 2024-02-09 11:44 | Emergency (ER) | payer MEDICARE ==
[~2024-02-09] VITALS: Ht 152.4 cm; Wt 75.0 kg
[2024-02-09 12:25] LABS: BASOPHILS ABSOLUTE AUTO 0.04 K/mm3 (0.00-0.23); BASOPHILS PERCENT AUTO 1 % (0-2); EOSINOPHILS ABSOLUTE AUTO 0.16 K/mm3 (0.00-0.68); EOSINOPHILS PERCENT AUTO 3 % (0-6); Hematocrit 34.4 % (33.0-51.0); Hemoglobin 11.2 g/dL (11.5-16.0); IMMATURE GRAN ABSOLUTE AUTO 0.02 K/mm3 (0.00-0.10); IMMATURE GRAN PERCENT AUTO 0 % (0-1); LYMPHOCYTES ABSOLUTE AUTO 1.05 K/mm3 (0.84-5.20); LYMPHOCYTES PERCENT AUTO 19 % (21-46); MONOCYTES ABSOLUTE AUTO 0.43 K/mm3 (0.16-1.47); MONOCYTES PERCENT AUTO 8 % (4-13); Mean Corpuscular HGB 29.3 pg (26.0-34.0); Mean Corpuscular HGB Conc 32.6 g/dL (31.5-36.5); Mean Corpuscular Volume 90 fL (80-100); NEUTROPHILS ABSOLUTE AUTO 3.95 K/mm3 (1.96-9.15); NEUTROPHILS PERCENT AUTO 70 % (41-73); Platelet Count 151 K/mm3 (150-400); RDW Coefficient Variation 16.4 % (11.7-14.2); RDW Standard Deviation 52.2 fL (35.1-46.3); Red Blood Cell Count 3.82 M/mm3 (3.80-5.20); White Blood Cell Count 5.65 K/mm3 (4.00-11.30)
[2024-02-09 12:51] LABS: Bun/Creatinine Ratio 10.3 (12.0-20.0); Creatinine, Blood 7.84 mg/dL (0.40-1.00); Potassium, Blood 4.8 mmol/L (3.5-5.5)
[2024-02-09 13:30] VITALS: BP 153/72
== END 2024-02-09 14:24 | disposition home or self-care (01) ==
LOC: ER 11:44
PROVIDERS: Emergency Medicine
DX: T82.838A Hemorrhage due to vascular prosthetic devices, implants and grafts, initial encounter (principal); Z88.8 Allergy status to other drugs, medicaments and biological substances; Z79.899 Other long term (current) drug therapy; N18.6 End stage renal disease; E11.22 Type 2 diabetes mellitus with diabetic chronic kidney disease; I12.0 Hypertensive chronic kidney disease with stage 5 chronic kidney disease or end stage renal disease; J44.9 Chronic obstructive pulmonary disease, unspecified; K21.9 Gastro-esophageal reflux disease without esophagitis; E78.5 Hyperlipidemia, unspecified; F17.210 Nicotine dependence, cigarettes, uncomplicated
CPT/HCPCS: 80048; 85025; 99284

== ENCOUNTER 2024-04-10 14:59 | Inpatient (IN) | payer MEDICARE ==
[~2024-04-10] VITALS: Ht 165.1 cm; Wt 73.0 kg
[~2024-04-10 14:59] MED LIST changes: -MIRALAX1714 PO
[2024-04-10 15:35] LABS: BASOPHILS ABSOLUTE AUTO 0.04 K/mm3 (0.00-0.23); BASOPHILS PERCENT AUTO 1 % (0-2); EOSINOPHILS ABSOLUTE AUTO 0.13 K/mm3 (0.00-0.68); EOSINOPHILS PERCENT AUTO 2 % (0-6); Hematocrit 18.8 % (33.0-51.0); IMMATURE GRAN ABSOLUTE AUTO 0.04 K/mm3 (0.00-0.10); IMMATURE GRAN PERCENT AUTO 1 % (0-1); LYMPHOCYTES ABSOLUTE AUTO 0.88 K/mm3 (0.84-5.20); LYMPHOCYTES PERCENT AUTO 16 % (21-46); MONOCYTES ABSOLUTE AUTO 0.46 K/mm3 (0.16-1.47); MONOCYTES PERCENT AUTO 8 % (4-13); Mean Corpuscular HGB Conc 31.9 g/dL (31.5-36.5); Mean Corpuscular Volume 91 fL (80-100); Mean Platelet Volume 9.5 fL (9.1-12.4); NEUTROPHILS ABSOLUTE AUTO 4.03 K/mm3 (1.96-9.15); NEUTROPHILS PERCENT AUTO 72 % (41-73); NRBC ABSOLUTE 0.02 K/mm3 (0.00-0.02); NRBC Auto 0.4 /100 WBC (0.0-0.2); Platelet Count 125 K/mm3 (150-400); RDW Coefficient Variation 17.9 % (11.7-14.2); RDW Standard Deviation 58.7 fL (35.1-46.3); Red Blood Cell Count 2.07 M/mm3 (3.80-5.20); White Blood Cell Count 5.58 K/mm3 (4.00-11.30)
[2024-04-10 15:48] LABS: International Normalized Ratio 1.07; Prothrombin Time Results 11.4 Sec (9.7-11.5)
[2024-04-10 15:55] LABS: Albumin, Blood 2.8 g/dL (3.4-5.0); Albumin/Globulin Ratio 0.9 (0.8-1.8); Bilirubin, Total 0.3 mg/dL (0.1-1.0); Bun/Creatinine Ratio 14.7 (12.0-20.0); Creatinine, Blood 2.04 mg/dL (0.40-1.00); Potassium, Blood 3.8 mmol/L (3.5-5.5); Total Protein, Blood 5.8 g/dL (6.4-8.2)
[2024-04-10] MEDS ORDERED: FLU VACC TS2024-25(6MOS UP)/PF 45 MCG/0.5 ML SYRINGE IM SCH (18:55)
[2024-04-10] MEDS ORDERED: Ondansetron HCl 2 MG / ML 2ML Vial IV PRN (18:55)
[2024-04-10] MEDS ORDERED: Pantoprazole Sodium 40 MG in NS 50 ML IV SCH (19:00)
[2024-04-10 21:29] VITALS: BP 148/57
[2024-04-10 22:19] LABS: Hematocrit 21.1 % (33.0-51.0); Hemoglobin 6.7 g/dL (11.5-16.0)
[2024-04-10 22:59] VITALS: BP 143/81
[2024-04-10 23:05] VITALS: BP 149/84
[2024-04-11] VITALS (17 sets, daily range): BP systolic 118–151; BP diastolic 48–74
--- NOTE | 2024-04-11 02:59 | NUR ---
Pt A&O x2, does not know what the date is, what hospital this is, she does not know her meds, and could not recall when her last dialysis was. Pt has perm cath in right chest for HD, and an old AV fistula in the left FA which is not functional. Pt VS are WNL, on O2 2L this is her BL, tele is NSR with PVC's, on continuous oxcimetrey. Has recieved 2 units of PRBC. BG ac/hs. currently on clear liquids, Dr Padilla in to see Pt. HD is . Awaiting labs.
[2024-04-11 04:33] LABS: BASOPHILS ABSOLUTE AUTO 0.03 K/mm3 (0.00-0.23); BASOPHILS PERCENT AUTO 1 % (0-2); EOSINOPHILS ABSOLUTE AUTO 0.17 K/mm3 (0.00-0.68); EOSINOPHILS PERCENT AUTO 3 % (0-6); Hematocrit 23.2 % (33.0-51.0); Hemoglobin 7.6 g/dL (11.5-16.0); IMMATURE GRAN ABSOLUTE AUTO 0.02 K/mm3 (0.00-0.10); IMMATURE GRAN PERCENT AUTO 0 % (0-1); LYMPHOCYTES ABSOLUTE AUTO 0.88 K/mm3 (0.84-5.20); LYMPHOCYTES PERCENT AUTO 15 % (21-46); MONOCYTES ABSOLUTE AUTO 0.53 K/mm3 (0.16-1.47); MONOCYTES PERCENT AUTO 9 % (4-13); Mean Corpuscular HGB Conc 32.8 g/dL (31.5-36.5); Mean Corpuscular Volume 89 fL (80-100); Mean Platelet Volume 9.1 fL (9.1-12.4); NEUTROPHILS ABSOLUTE AUTO 4.13 K/mm3 (1.96-9.15); NEUTROPHILS PERCENT AUTO 72 % (41-73); Platelet Count 109 K/mm3 (150-400); RDW Coefficient Variation 17.3 % (11.7-14.2); RDW Standard Deviation 54.2 fL (35.1-46.3); Red Blood Cell Count 2.62 M/mm3 (3.80-5.20); White Blood Cell Count 5.76 K/mm3 (4.00-11.30)
[2024-04-11 05:07] LABS: Albumin, Blood 2.7 g/dL (3.4-5.0); Bilirubin, Total 0.5 mg/dL (0.1-1.0); Bun/Creatinine Ratio 14.6 (12.0-20.0); Calcium, Blood 8.3 mg/dL (8.5-10.1); Creatinine, Blood 3.28 mg/dL (0.40-1.00); Globulin, Blood 2.6 g/dL (2.2-4.0); Potassium, Blood 4.5 mmol/L (3.5-5.5); Total Protein, Blood 5.3 g/dL (6.4-8.2)
[2024-04-11] MEDS ORDERED: Anticoagulant Sod Citrate Soln 3 ML SYR INJ PRN (07:25)
[2024-04-11 10:52] LABS: Hemoglobin 8.6 g/dL (11.5-16.0)
[2024-04-11] MEDS ORDERED: NS 1,000 ML IV SCH (14:00)
--- NOTE | 2024-04-11 14:33 | NUR ---
PT BROUGHT FROM FLOOR TO DAY SURGERY FOR PROCEDURE. History, Chart, Medications and Allergies reviewed before start of procedure. Lungs clear T/O to Auscultation. Patient confirms NPO status and agrees with scheduled surgery. Pre-Op teaching done. Pt verbalizes understanding. PT BELONGINGS LEFT IN PERSONAL ROOM ON MEDICAL FLOOR.
[2024-04-11] MEDS ORDERED: NS 500 ML IV SCH (14:35)
[2024-04-11] MEDS ORDERED: propofoL 20 ML IV ONE ×3 (14:38→15:01)
--- NOTE | 2024-04-11 14:55 | NUR ---
04/11/24 1455 Nixon Moise MONITOR INTACT WITH CONTINUOUS PULSE OXIMETRY, CONTINUOUS END TITAL CO2, AND INTERMITTENT BLOOD PRESSURE. 3-LEAD EKG REVIEWED WITH PHYSICIAN PRIOR TO START OF PROCEDURE. History, Chart, Medications and Allergies reviewed before start of procedure. O2 VIA POM INTACT THROUGHOUT SEDATION/PROCEDURE. Bite Block Placed. SIMETHICONE USED DURING PROCEDURE.
[2024-04-11] MEDS ORDERED: Darbepoetin Alfa in Polysorbat 25 MCG/0.42 ML Syringe SC SCH (16:00)
--- NOTE | 2024-04-11 16:07 | NUR ---
PT REMAINED NPO THIS MORNING PER MD ORDERS FOR ENDO THIS AFTERNOON. PT STILL HAVEING DARK STOOLS BUT NO C/O PAIN.
[2024-04-11 16:27] LABS: Hematocrit 24.9 % (33.0-51.0); Hemoglobin 8.1 g/dL (11.5-16.0)
--- NOTE | 2024-04-11 17:14 | NUR ---
ASSESSED PATIENT THIS SHIFT. SHE WAS SITTING UP IN BED. SHE IS CURRENTLY NPO FOR AN ENDO. CALLED PATIENTS MIKE PATIENT SISTER AND POA. UPDATED HER OF ESTEFANIA PLAN OF CARE. WE DISCUSSED ESTEFANIA LIVING SITUATION, SHE IS AT [place] AND HAS RECENTLY BEGAN RECIEVING MORE ASSISTANCE FROM STAFF WITH MEDICATION AND ADL'S. SISTER RELAYED THAT MANY OF ESTEFANIA FRIENDS HAVE RECENTLY AND SHE HAS BEEN STRUGGLING EMOTIONALLY WITH THIS. SHE HAS HAD A DECREASE IN APPETITE AND SHE HAS BEEN SLEEPING MORE SHE SEEMS TO "NOT BE PARTICIPATING IN LIFE", SHE SAID WHEN SHE ASKS HER ABOUT THIS SHE IS GIVEN VAUGE ANSWERS. SUHA RECIEVES DIALYSIS THREE TIMES A WEEK AND IS USUALLY CONFUSED AFTERWARDS. WE DISCUSSED CODE STATUS AND ALTHOUGH MIKE BELIEVES THAT SUHA WOULD NOT DO WELL BEING RESSUSCITATED. SUHA IS CLEAR THAT SHE WOULD WANT EVERYTHING DONE IF HER HEART WERE TO STOP.
[2024-04-12] VITALS (18 sets, daily range): BP systolic 93–182; BP diastolic 29–129
--- NOTE | 2024-04-12 04:18 | NUR ---
SHIFT SUMMARY ADMITTED FOR GI BLEED. FULL CODE. PROTONIX DRIP INFUSING. DIALYSIS PATIENT. GI CONSULT IS DR. SAGASTUME. RENAL CONSULT IS DR. GUO. OLD LEFT AV FISTULA. RIGHT PERMACATH IN PLACE FOR DIALYSIS. A&O X2-4, FORGETFUL AND ANXIOUS. SHE IS ON 3 LPM O2, THIS IS HER BASELINE. STAND/PIVOT TO BSC OR CHAIR. SHE IS ON A RENAL DIET. SHE INSISTED HER TELEMETRY BE REMOVED THIS SHIFT, I DID INFORM THE HOSPITALIST. SHE IS FROM [facility].
[2024-04-12 05:36] LABS: Magnesium, Blood 2.1 mg/dL (1.6-2.4)
[2024-04-12 05:37] LABS: Albumin, Blood 2.6 g/dL (3.4-5.0); Anion Gap 14 mmol/L (3-11); Blood Urea Nitrogen 57 mg/dL (8-24); Bun/Creatinine Ratio 14.8 (12.0-20.0); CO2, Blood 26 mmol/L (21-32); Calcium, Blood 7.5 mg/dL (8.5-10.1); Chloride, Blood 100 mmol/L (98-108); Creatinine, Blood 3.86 mg/dL (0.40-1.00); Glomerular Filtration Rate 12 (60-); Glucose, Blood 152 mg/dL (70-99); Phosphorus, Blood 3.7 mg/dL (2.5-4.9); Potassium, Blood 4.3 mmol/L (3.5-5.5); Sodium, Blood 136 mmol/L (136-145)
[2024-04-12 05:42] LABS: Hematocrit 21.1 % (33.0-51.0); Hemoglobin 6.9 g/dL (11.5-16.0)
[2024-04-12] MEDS ORDERED: Anticoagulant Sod Citrate Soln 3 ML SYR INJ PRN (07:25)
--- NOTE | 2024-04-12 07:49 | NUR ---
CALLED DR MALDONADO REGARDING LAB RESULTS, LOW H&H. STATED SHE WOULD PUT ORDERS IN TO TRANSFUSE, AND IT WAS OKAY TO TRANSFUSE IN DIALYSIS IF NEEDED.
--- NOTE | 2024-04-12 08:40 | NUR ---
PT OFF FLOOR IN DIALYSIS
[2024-04-12] MEDS ORDERED: Bisacodyl 5 MG TabEC PO ONE ×3 (11:00→15:50)
[2024-04-12] MEDS ORDERED: Polyethylene Glycol 3350 17 gm PO ONE ×2 (11:00→15:20)
--- NOTE | 2024-04-12 17:11 | NUR ---
SHIFT SUMMARY PATIENT IN BED MOST OF SHIFT. ABLE TO USE BSC WITH ONE ASSIST STAND PIVOT TRANSFER. HAD DIALYSIS THIS AM AND RECEIVED 2 UNITS PRBC DURING. A/OX 2-3, TEARFUL THROUGHOUT SHIFT. FISTULA TO L ARM. R CHEST PERMACATH FOR DIALYSIS, DRESSING INTACT. SMALL MAROON COLORED BM. ABLE TO MAKE NEEDS KNOWN. CALL LIGHT IN REACH, CALLS FREQUENTLY THEN STATES SHE FORGOT WHY AND IS TEARFUL ABOUT IT. CARES ONGOING.
[2024-04-12] MEDS ORDERED: Polyethylene Glycol 3350 17 gm PO SCH (21:00)
[2024-04-13 02:38] VITALS: BP 152/77
--- NOTE | 2024-04-13 04:10 | NUR ---
SHIFT SUMMARY ADMITTED FOR MELENA. FULL CODE. HD PATIENT, DIALYSIS RECEIVED ON PREVIOUS SHIFT W/2 UNITS OF PRBC'S. MULTIPLE LOOSE BOWEL MOVEMENTS THIS SHIFT. RENAL DIET. OLD LEFT AV FISTULA. RIGHT PERMACATH FOR HD. PIVOT ASSIST TO BSC. DR. GUO IS RENAL CONSULT. DR. SAGASTUME IS GI CONSULT. 3 LPM O2 IS HER BASELINE. A&O X2, HX OF SCHIZO-AFFECTIVE DISORDER. STOOLS REMAIN TARRY.
[2024-04-13 07:39] VITALS: BP 145/87
[2024-04-13 09:09] LABS: Hematocrit 27.4 % (33.0-51.0); Hemoglobin 9.1 g/dL (11.5-16.0)
[2024-04-13 09:29] LABS: Albumin, Blood 2.8 g/dL (3.4-5.0); Anion Gap 11 mmol/L (3-11); Blood Urea Nitrogen 63 mg/dL (8-24); Bun/Creatinine Ratio 15.4 (12.0-20.0); CO2, Blood 31 mmol/L (21-32); Calcium, Blood 7.9 mg/dL (8.5-10.1); Chloride, Blood 100 mmol/L (98-108); Creatinine, Blood 4.08 mg/dL (0.40-1.00); Glomerular Filtration Rate 11 (60-); Glucose, Blood 194 mg/dL (70-99); Phosphorus, Blood 3.6 mg/dL (2.5-4.9); Potassium, Blood 4.2 mmol/L (3.5-5.5); Sodium, Blood 138 mmol/L (136-145)
[2024-04-13 15:27] VITALS: BP 175/71
--- NOTE | 2024-04-13 15:45 | NUR ---
DELAY IN DISCHARGE MAIRA MEDEL CONTACTED TO INFORM FACILITY ABOUT DISCHARGE ORDERS. STAFF AT FACILITY STATING THEY COULD NOT TAKE THE PATIENT BACK BECAUSE IT WAS SUNDAY AND THERE WASNT A NURSE AVAILABLE. THEY ALSO STATED IT WAS TOO LATE IN THE DAY. DISCHARGE ORDERS PLACED AT 1342. MAIRA MEDEL WAS CALLED MULTIPLE TIMES BY THREE DIFFERENT NURSES SINCE DISCHARGE ORDERS PLACED. UNABLE TO GET AHOLD OF FACILITY UNTIL 1540. DR. VELAZQUEZ NOTIFIED.
--- NOTE | 2024-04-13 16:15 | NUR ---
SHIFT SUMMARY PATIENT ABLE TO USE BSC, 2 EPISODES OF INCONTINENT BOWEL MOVEMENTS, CONTINUES TO BE MAROON/BROWN IN COLOR, LIQUID. DECLINED BOWEL MEDS THIS SHIFT. TEARFUL DEMEANOR THROUGHOUT SHIFT. A/O X2-3. NO DIALYSIS TODAY, WILL RESUME TOMORROW PER DIALYSIS STAFF. L FISTULA PRESENT. R UPPER CHEST PERMACATH, DRESSING INTACT. CALL LIGHT IN REACH, ABLE TO MAKE NEEDS KNOWN. CARES ONGOING.
[2024-04-13 20:17] VITALS: BP 155/85
[2024-04-14] VITALS (12 sets, daily range): BP systolic 118–178; BP diastolic 70–90
--- NOTE | 2024-04-14 04:11 | NUR ---
SHIFT SUMMARY. PATIENT IS A&OX2-3 WITH FORGETFULLNESS AND CONFUSION. PATIENT UP TO BSC WITH 1P STAND PIVOT. PATIENT IS ON 3LPM VIA NASAL CANNULE-THIS PATIENTS BASELINE. PATIENT IS ANXIOUS WITH A TEARFUL DEMEANOR T/O SHIFT. PATIENT IS ABLE TO MAKE HER NEEDS KNOWN. PATIENT HAS PERMACATH TO RIGHT UPPER CHEST-CHG BATH COMPLETED AND FISTULA TO LEFT ARM. PLAN IS FOR PATIENT TO DISCHARGE HOME TO [facility] TODAY. BED IS LOCKED IN THE LOWEST POSITION WITH CALL LIGHT IN REACH. CARE IS ONGOING.
[2024-04-14 05:27] LABS: Hematocrit 23.2 % (33.0-51.0); Hemoglobin 7.6 g/dL (11.5-16.0)
[2024-04-14 05:57] LABS: Albumin, Blood 2.5 g/dL (3.4-5.0); Anion Gap 15 mmol/L (3-11); Blood Urea Nitrogen 117 mg/dL (8-24); Bun/Creatinine Ratio 18.5 (12.0-20.0); CO2, Blood 26 mmol/L (21-32); Calcium, Blood 7.9 mg/dL (8.5-10.1); Chloride, Blood 102 mmol/L (98-108); Creatinine, Blood 6.32 mg/dL (0.40-1.00); Glomerular Filtration Rate 6 (60-); Glucose, Blood 169 mg/dL (70-99); Magnesium, Blood 2.1 mg/dL (1.6-2.4); Potassium, Blood 4.6 mmol/L (3.5-5.5); Sodium, Blood 138 mmol/L (136-145)
[2024-04-14] MEDS ORDERED: Anticoagulant Sod Citrate Soln 3 ML SYR INJ PRN (07:30)
[2024-04-14] MEDS ORDERED: MIRALAX1714 PO (10:25)
--- NOTE | 2024-04-14 15:57 | NUR ---
DISCHARGE SUMMARY PT DC THIS SHIFT DC INSTRUCTION GONE OVER WITH PT WHOM STATED UNDERSTANDING. PT WAS ESCORTED OUT TO TRANSPORTATION SERVICE VIA WHEECHAIR BY SINGING WAITER OR WAITRESS.
== END 2024-04-14 15:17 | disposition home or self-care (01) | DRG 377 ==
LOC: ER 14:59 → ERHOLD 15:00 → MEDS 15:00
PROVIDERS: Emergency Medicine; Internal Medicine; Internal Medicine Gastroenterology; Internal Medicine Nephrology; ADMIT Internal Medicine
PROC: 30233N1 Transfusion of Nonautologous Red Blood Cells into Peripheral Vein, Percutaneous Approach (ICD-10-PCS; principal; 2024-04-10)
PROC: 5A1D70Z Performance of Urinary Filtration, Intermittent, Less than 6 Hours Per Day (ICD-10-PCS; 2024-04-11)
PROC: 0DJ08ZZ Inspection of Upper Intestinal Tract, Via Natural or Artificial Opening Endoscopic (ICD-10-PCS; 2024-04-11 14:00)
DX: K92.1 Melena (principal); N18.6 End stage renal disease; D62 Acute posthemorrhagic anemia; I12.0 Hypertensive chronic kidney disease with stage 5 chronic kidney disease or end stage renal disease; D63.1 Anemia in chronic kidney disease; E11.22 Type 2 diabetes mellitus with diabetic chronic kidney disease; E78.5 Hyperlipidemia, unspecified; F41.9 Anxiety disorder, unspecified; F32.A Depression, unspecified; G40.909 Epilepsy, unspecified, not intractable, without status epilepticus; Z99.2 Dependence on renal dialysis; I48.0 Paroxysmal atrial fibrillation; G25.81 Restless legs syndrome; J44.9 Chronic obstructive pulmonary disease, unspecified; E86.9 Volume depletion, unspecified; K59.00 Constipation, unspecified; K21.9 Gastro-esophageal reflux disease without esophagitis; F17.210 Nicotine dependence, cigarettes, uncomplicated; E55.9 Vitamin D deficiency, unspecified; G89.29 Other chronic pain; E88.09 Other disorders of plasma-protein metabolism, not elsewhere classified; Z86.73 Personal history of transient ischemic attack (TIA), and cerebral infarction without residual deficits; Z99.81 Dependence on supplemental oxygen; Z79.51 Long term (current) use of inhaled steroids; Z86.19 Personal history of other infectious and parasitic diseases; Z79.4 Long term (current) use of insulin; Z88.8 Allergy status to other drugs, medicaments and biological substances; Z88.6 Allergy status to analgesic agent
CPT/HCPCS: 36415; 36430; 80053; 80069; 82947; 83735; 85014; 85018; 85025; 85610; 85730; 86850; 86900; 86901; 86923; 93005; 93010; 94760; 99284-25; A9270; G0257; G0378; J0881; J2470; J2704; J7030; P9016

== ENCOUNTER → 2024-04-10 | Outpatient (CLI) | payer MEDICARE ==
[~2024-04-10] MED LIST changes: +MIRALAX1714 PO
== END | disposition home or self-care (01) ==
LOC: LAB SHORT 11:52 → LAB 11:52
DX: N18.6 End stage renal disease (principal); D63.1 Anemia in chronic kidney disease
CPT/HCPCS: 85018

== ENCOUNTER → 2024-05-15 | Outpatient (CLI) | payer MEDICARE ==
[~2024-05-15] MED LIST changes: +KEPPRA250 M1 PO; +MIRALAX1714 PO; +Vitamin D1000 UNI1 PO
== END ==
LOC: LAB 13:43 → LAB SHORT 13:43
DX: N18.6 End stage renal disease (principal); D63.1 Anemia in chronic kidney disease
CPT/HCPCS: 85018

== ENCOUNTER → 2024-11-17 | Outpatient (CLI) | payer MEDICARE | LOC: LAB SHORT 12:00 → LAB 12:00 | DX: N18.6 End stage renal disease (principal); D63.1 Anemia in chronic kidney disease | CPT/HCPCS: 85018 ==

== ENCOUNTER 2025-01-27 11:07 | Emergency (ER) | payer MEDICARE, OTHER ==
[~2025-01-27] VITALS: Ht 152.4 cm; Wt 81.2 kg
[2025-01-27] MEDS ORDERED: Morphine Sulfate 20 MG/1ML 1 ML Oral Syringe PO ONE (11:30)
[2025-01-27 13:43] VITALS: BP 136/80
== END 2025-01-27 13:44 | disposition home or self-care (01) ==
LOC: ER 11:07
DX: M54.50 Low back pain, unspecified (principal); G89.29 Other chronic pain; E11.22 Type 2 diabetes mellitus with diabetic chronic kidney disease; I12.0 Hypertensive chronic kidney disease with stage 5 chronic kidney disease or end stage renal disease; N18.6 End stage renal disease; J44.9 Chronic obstructive pulmonary disease, unspecified; K21.9 Gastro-esophageal reflux disease without esophagitis; E78.5 Hyperlipidemia, unspecified; I48.0 Paroxysmal atrial fibrillation; F17.210 Nicotine dependence, cigarettes, uncomplicated; Z91.81 History of falling; Z86.73 Personal history of transient ischemic attack (TIA), and cerebral infarction without residual deficits; Z99.81 Dependence on supplemental oxygen; Z99.2 Dependence on renal dialysis; Z88.8 Allergy status to other drugs, medicaments and biological substances; Z88.6 Allergy status to analgesic agent; Z79.51 Long term (current) use of inhaled steroids; Z79.4 Long term (current) use of insulin; Z79.899 Other long term (current) drug therapy
CPT/HCPCS: 72070; 72100; 99283-25; A9270

== ENCOUNTER 2025-02-12 18:38 | Emergency (ER) | payer MEDICARE, OTHER ==
[~2025-02-12] VITALS: Ht 152.4 cm; Wt 63.5 kg
[2025-02-13 03:15] VITALS: BP 150/72
== END 2025-02-13 03:20 | disposition home or self-care (01) ==
LOC: ER 18:38
DX: Z00.8 Encounter for other general examination (principal); E11.22 Type 2 diabetes mellitus with diabetic chronic kidney disease; I12.0 Hypertensive chronic kidney disease with stage 5 chronic kidney disease or end stage renal disease; N18.6 End stage renal disease; E78.5 Hyperlipidemia, unspecified; K21.9 Gastro-esophageal reflux disease without esophagitis; F17.210 Nicotine dependence, cigarettes, uncomplicated; Z79.4 Long term (current) use of insulin; Z86.73 Personal history of transient ischemic attack (TIA), and cerebral infarction without residual deficits; Z79.899 Other long term (current) drug therapy; Z79.51 Long term (current) use of inhaled steroids; Z88.6 Allergy status to analgesic agent; Z88.8 Allergy status to other drugs, medicaments and biological substances
CPT/HCPCS: 99282

== ENCOUNTER 2025-02-21 12:59 | Emergency (ER) | payer MEDICARE, OTHER ==
[~2025-02-21] VITALS: Ht 152.4 cm; Wt 70.3 kg
[2025-02-21] MEDS ORDERED: MORP20L PO (13:31)
[2025-02-21] MEDS ORDERED: Oxymetazoline 0.05% Nasal Relief Spray 15mL BTL TOP ONE (13:40)
[2025-02-21 15:00] VITALS: BP 130/75
== END 2025-02-21 16:30 | disposition home or self-care (01) ==
LOC: ER 12:59
DX: R04.0 Epistaxis (principal); J96.10 Chronic respiratory failure, unspecified whether with hypoxia or hypercapnia; I12.0 Hypertensive chronic kidney disease with stage 5 chronic kidney disease or end stage renal disease; E11.22 Type 2 diabetes mellitus with diabetic chronic kidney disease; N18.6 End stage renal disease; J44.9 Chronic obstructive pulmonary disease, unspecified; K21.9 Gastro-esophageal reflux disease without esophagitis; F17.210 Nicotine dependence, cigarettes, uncomplicated; Z88.6 Allergy status to analgesic agent; Z88.8 Allergy status to other drugs, medicaments and biological substances; Z79.51 Long term (current) use of inhaled steroids; Z79.4 Long term (current) use of insulin; Z79.899 Other long term (current) drug therapy; Z99.2 Dependence on renal dialysis
CPT/HCPCS: 30901; 99283-25; A9270

== ENCOUNTER 2025-02-21 20:37 | Emergency (ER) | payer MEDICARE, OTHER ==
[~2025-02-21] VITALS: Ht 152.4 cm; Wt 59.0 kg
[~2025-02-21 20:37] MED LIST changes: +MORP20L PO
[2025-02-21 20:41] VITALS: BP 153/85
== END 2025-02-21 23:06 | disposition home or self-care (01) ==
LOC: ER 20:37
DX: R04.0 Epistaxis (principal); I12.0 Hypertensive chronic kidney disease with stage 5 chronic kidney disease or end stage renal disease; E11.22 Type 2 diabetes mellitus with diabetic chronic kidney disease; N18.6 End stage renal disease; J44.9 Chronic obstructive pulmonary disease, unspecified; K21.9 Gastro-esophageal reflux disease without esophagitis; G20.A1 Parkinson's disease without dyskinesia, without mention of fluctuations; F17.210 Nicotine dependence, cigarettes, uncomplicated; Z99.2 Dependence on renal dialysis
CPT/HCPCS: 99283

== ENCOUNTER → 2025-03-11 | Outpatient (CLI) | payer MEDICARE, OTHER ==
[~2025-03-11] MED LIST changes: +ALBU90OI INH; -CALCIUM CARBON500 M4 PO; +CEPH500 PO; +CINA30 PO; +Calcium Carbon500 MG PO; +DICLOFENAC SOD100 GM TOP; +HUMULIN N100 UNIT/3 SC; +Hair, Skin & N1 EACH PO; +LORA.5 PO; +MIRALAX17 GM PO; +SYSTANE 0.4-0.315 ML BOTHEYES
[2025-03-11 17:12] LABS: Source, Urine Clean Catch
[2025-03-11 17:19] LABS: Bilirubin, Urine Neg (Neg); Color, Urine Yellow (P-Yellow); Glucose Qualitative, Urine Neg (Neg); Ketones, Urine Neg (Neg); Leukocyte Esterase, Urine 3+ (Neg); Protein, Urine 4+ (Neg); Specific Gravity, Urine 1.010 (1.003-1.022); Urobilinogen, Urine NORM (Normal)
[2025-03-11 17:29] LABS: White Blood Cells, Urine 25-50 /hpf (0-5)
== END | disposition home or self-care (01) ==
LOC: LAB 11:00 → LAB SHORT 11:00
PROVIDERS: Nurse Practitioner Family
DX: N39.0 Urinary tract infection, site not specified (principal)
CPT/HCPCS: 81001; 87077; 87086; 87186